=== PATIENT | female | born 1975 | race Caucasian/White ===

== ENCOUNTER 2018-05-18 12:30 | Emergency (ER) | payer OTHER ==
--- OUTSIDE RECORDS SUMMARY | 2018-05-18 12:33 | XMS REPORT | Continuity of Care Document ---
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 17 Medical MALFUNCTION Center Spina bifida Resolved Problem 03/22/2017 [facility] Urinary tract Resolved Problem 03/22/2017 [facility] infection Medical Center HEADACHE Active [facility] PRESENCE OF Active [facility] CEREBROSPINAL Medical FLUID DRAINAGE Center Medications Medication Details Route Status Patient Ordering Order Source Instructions Provider Date heparin sodium, 5,000 unit, 1 No Longer [facility] porcine 2500 mL, Route: Active 017 Medical UNT/ML SUB-Q, Drug Center Injectable form: INJ, Solution Q8H, Dosing Weight 77.409, kg, Start date: 03/18/17 16:00:00 CDT, Duration: 30 day, Stop date: 04/17/17 8:00:00 CDTNotes: porcine heparin Ondansetron 4 4 mg=1 tab, Active [facility] MG Oral Tablet PO, Q8H, PRN 017 Medical [Zofran] Nausea/vomitin Center g, # 42 tab, 0 Refill(s) Acetaminophen 1 tab, PO, Active [facility] 300 MG / Q4H, PRN Pain, 017 Medical Codeine X 10 day, # 60 [facility] Phosphate 30 MG tab, 0 Oral Tablet Refill(s) [Tylenol with Codeine #3] Menthol 0.0044 1 appl, Route: No Longer [facility] MG/MG / Zinc TOP, BID, Drug Active 017 Medical Oxide 0.2 MG/MG form: OINT, [facility] Topical Start date: Ointment 03/16/17 [Calmoseptine 9:00:00 CDT, Ointment] Duration: 30 day, Stop date: 04/14/17 17:00:00 CDTNotes: (Same as: Calmoseptine) Labetalol 20 mg, 4 mL, No Longer [facility] Route: IVP, Active 017 Medical Drug form: [facility] INJ, Q15Min, Dosing Weight 77.273, kg, PRN Hypertension, Start date: 03/15/17 21:01:00 CDT, Duration: 3 doses or times, Stop date: 03/17/17 1:00:00 CDT Hydralazine 20 mg, 1 mL, No Longer [facility] Route: IVP, Active 017 Medical Drug form: [facility] INJ, Q4H, Dosing Weight 77.273, kg, PRN Hypertension, Start date: 03/15/17 21:01:00 CDT, Duration: 30 day, Stop date: 04/14/17 21:00:00 CDTNotes: (Same as: Apresoline) Push over 5 minutes Saline Flush 10 ml, Route: No Longer [facility] 0.9% IVP, Drug Active 017 Medical Form: INJ, [facility] Dosing Weight 77.273, kg, Q12H, Start date: 03/15/17 21:00:00 CDT, Duration: 30 day, Stop date: 04/14/17 9:00:00 CDTNotes: (Same as: BD Posiflush) sennosides, SNF 8.6 mg, 1 tab, No Longer [facility] Route: PO, Active 017 Medical Drug Form: [facility] TAB, Dosing Weight 77.273, kg, Q12H, Start date: 03/15/17 21:00:00 CDT, Duration: 30 day, Stop date: 04/14/17 9:00:00 CDTNotes: (Same as: Senokot) Docusate 100 mg, 1 cap, No Longer [facility] Route: PO, Active 017 Medical Drug form: [facility] CAP, Q12H, Dosing Weight 77.273, kg, Start date: 03/15/17 21:00:00 CDT, Duration: 30 day, Stop date: 04/14/17 9:00:00 CDTNotes: (Same as: Colace) (Do Not Crush) Regular 7 unit, 0.07 No Longer [facility] Insulin, Human mL, Route: Active 017 Medical 100 UNT/ML SUB-Q, Drug [facility] Injectable form: SOLN, Solution PRN, Dosing Weight 77.273, kg, PRN Abnormal Lab Result, Start date: 03/15/17 19:56:00 CDT, Duration: 30 day, Stop date: 04/14/17 19:55:00 CDTNotes: (Same as: Humulin R) Roll in palms of hands gently; Do not shake vigorously. "single patient use only" (Restricted to patients requiring a dose > 60 units) WASTE: F/P - Black; E - Municipal Trash Bin Stable for 28 days at room temperature Expires in days from Date Dextrose 50% 12.5 gm, 25 No Longer [facility] Syringe mL, Route: Active 017 Medical IVP, Drug Center Form: INJ, Dosing Weight 77.273, kg, PRN, PRN Abnormal Lab Result, Start date: 03/15/17 19:56:00 CDT, Duration: 30 day, Stop date: 04/14/17 19:55:00 CDT Saline Flush 10 ml, Route: No Longer [facility] 0.9% IVP, Drug Active 017 Medical Form: INJ, Center Dosing Weight 77.273, kg, PRN, PRN Line Flush, Start date: 03/15/17 19:56:00 CDT, Duration: 30 day, Stop date: 04/14/17 19:55:00 CDTNotes: (Same as: BD Posiflush) Bisacodyl 10 mg, 1 supp, No Longer [facility] Route: OK, Active 017 Medical Drug form: Center SUPP, Daily, Dosing Weight 77.273, kg, PRN Constipation, Start date: 03/15/17 19:56:00 CDT, Duration: 30 day, Stop date: 04/14/17 19:55:00 CDTNotes: (Same As: Dulcolax, Bisco-Lax) Acetaminophen 650 mg, 2 tab, No Longer [facility] Route: PO, Active 017 Medical Drug form: Center TAB, Q4H, Dosing Weight 77.273, kg, PRN Pain 1-3/Temp > 99.5 F, Start date: 03/15/17 19:56:00 CDT, Duration: 30 day, Stop date: 04/14/17 19:55:00 CDTNotes: Do not exceed 4 gm/day. (Same as: Tylenol) Morphine 1 mg, 0.25 mL, No Longer [facility] Route: IVP, Active 017 Medical Drug form: Center INJ, Q1H, Dosing Weight 77.273, kg, PRN Pain Score 7-10, Start date: 03/15/17 19:56:00 CDT, Stop date: 04/14/17 19:55:00 CDTNotes: (Same as:MORPhine Sulfate) Acetaminophen 2 tab, Route: No Longer [facility] 325 MG / PO, Drug Form: Active 017 Medical Hydrocodone TAB, Dosing Center Bitartrate 5 MG Weight 77.273, Oral Tablet kg, Q4H, PRN Pain Score 4-6, Start date: 03/15/17 19:56:00 CDT, Duration: 30 day, Stop date: 04/14/17 19:55:00 CDTNotes: (Same as: Torreon 325/5) Do not exceed 4gm/day of acetaminophen. sodium chloride 1,000 mL, No Longer [facility] 0.9% 1000 ml Rate: 50 Active 017 Medical INJ 1,000 mL ml/hr, Infuse Center over: 20 hr, Route: IV, Dosing Weight 77.273 kg, Total Volume: 1,000, Start date: 03/15/17 19:56:00 CDT, Duration: 30 day, Stop date: 04/14/17 19:55:00 CDT Fentanyl 50 microgram, Inactive [facility] 1 mL, Route: 017 Medical IVP, Drug Center form: INJ, ONCE, Dosing Weight 77.273, kg, Priority: STAT, Start date: 03/15/17 18:48:00 CDT, Stop date: 03/15/17 18:48:00 CDTNotes: (Same as: Sublimaze) Preservative free. Tylenol 650 mg, 2 tab, Inactive [facility] Route: PO, 017 Medical Drug form: Center TAB, ONCE, Dosing Weight 77.273, kg, Priority: STAT, Start date: 03/15/17 18:23:00 CDT, Stop date: 03/15/17 18:23:00 CDTNotes: Do not exceed 4 gm/day. (Same as: Tylenol) NS (Bolus) IV 1,000 mL, Inactive [facility] 1,000 ml/hr, 017 Medical Infuse Over: 1 Center hr, Route: IV, 1,000, Drug form: INJ, ONCE, Priority: STAT, Dosing Weight 77.273 kg, Start date: 03/15/17 18:23:00 CDT, Duration: 1 doses or times, Stop date: 03/15/17 18:23:00 CDT Reglan 10 mg, 2 mL, Inactive [facility] Route: IVP, 017 Medical Drug form: Center INJ, ONCE, Dosing Weight 77.273, kg, Priority: STAT, Start date: 03/15/17 18:23:00 CDT, Stop date: 03/15/17 18:23:00 CDTNotes: (Same as: Reglan) Allergies, Adverse Reactions, Alerts Substance Category Reaction Severity Reaction Status Date Comments Source type Reported clindamycin Assertion Drug Active [facility] Immunizations Immunization Date Given Site Status Last Updated Comments Source Results Order Name Results Value Reference Date Interpretation Comments Source Range BODY FLUIDS WBC CSF 3 /mm3 0 - 53 03/16 [facility] [address] [place] [address] BODY FLUIDS RBC CSF 4450 /mm3 0 - 03 03/16 [facility] BODY FLUIDS Supernat CSF Colorless Colorless 03/16 [facility] (03/15/17 8:17 PM) [facility] BODY FLUIDS Clarity CSF Slight Clear 03/16 [facility] *ABN* [facility] (03/15/17 8:17 PM) BODY FLUIDS Color CSF Colorless Colorless 03/16 [facility] (03/15/17 8:17 PM) [facility] BODY FLUIDS Comment CSF Differentia 03/16 [facility] l [facility] performed Center on WBC count of less than 5. BODY FLUIDS Tube Num CSF 1 03/16 [facility] ELECTROLYTE AGAP 10.1 meq/L 10.0 - 03/15 [facility] S 20.0 [facility] ELECTROLYTE eGFR 129 03/15 Result Comment: The eGFR is calculated using the CKD-EPI formula. In most young, healthy individuals the eGFR will be > 90 mL/min/1.73m2. The eGFR declines with age. An eGFR of 60-89 may be normal in [facility] mL/min/1.73 /2016 some populations, particularly the elderly, for whom the CKD-EPI formula has not been extensively validated. Use of the eGFR is not recommended in the following populations: [place] [address] Center Individuals with unstable creatinine concentrations, including patients and those with serious co-morbid conditions. Patients with extremes in muscle mass or diet. The data above are obtained from the National Kidney Disease Education Program (NKDEP) which additionally recommends that when the eGFR is used in patients with extremes of body mass index for purposes of drug dosing, the eGFR should be multiplied by the estimated BMI. ELECTROLYTE CO2 24 meq/L 24 - 32 03/15 [facility] [address] [place] [address] ELECTROLYTE Calcium Lvl 8.2 mg/dL 8.5 - 10.5 03/15 [facility]2016 [facility] ELECTROLYTE Creatinine 0.42 mg/dL 0.50 - 03/15 [facility] Lvl 1.40 [facility] ELECTROLYTE Sodium Lvl 140 meq/L 135 - 145 03/[address] ELECTROLYTE Potassium 4.1 meq/L 3.5 - 5.1 03/15 [facility] ELECTROLYTE BUN 11 mg/dL 7 - 22 03/[address] ELECTROLYTE Chloride Lvl 110 meq/L 95 - 109 03/[address] ELECTROLYTE Glucose Lvl 90 mg/dL 70 - 99 03/[address] HEMATOLOGY Microcyte 2+ None Seen 03/15 [facility] Center (03/15/17 6:55 PM) HEMATOLOGY Eosinophils 0.1 K/CMM 0.0 - 0.5 03/15 [facility] HEMATOLOGY Eosinophils 1.9 % 0.0 - 4.0 03/[address] [facility]2016 [facility] HEMATOLOGY Monocytes 6.3 % 2.0 - 12.0 03/[address] HEMATOLOGY Lymphocytes 28.3 % 20.0 - 03/15 [facility] 40.0 [facility] HEMATOLOGY Segs-Bands # 3.7 K/CMM 1.5 - 8.1 03/[address] HEMATOLOGY Basophils 0.4 % 0.0 - 1.0 03/[address] HEMATOLOGY Lymphocytes 1.6 K/CMM 1.0 - 5.5 03/15 [facility]2016 [facility] HEMATOLOGY Monocytes # 0.4 K/CMM 0.0 - 0.8 03/15 [facility] HEMATOLOGY Plt Morph Normal 03/15 Medical (03/15/17 6:55 PM) [facility] HEMATOLOGY Segs 63.1 % 45.0 - 03/15 75.0 /2016 [facility] HEMATOLOGY MPV 7.6 fL 7.4 - 10.4 03/15 [facility] HEMATOLOGY MCH 20.2 pg 27.0 - 03/15 [place] 31.0 [facility] HEMATOLOGY MCHC 29.3 g/dL 32.0 - 03/15 Result 36.0 Comment: Medical rechecked [facility] HEMATOLOGY RDW 18.6 % 11.5 - 03/15 14. [facility] HEMATOLOGY Platelet 199 K/CMM 133 - 450 03/15 [facility] HEMATOLOGY MCV 69.0 fL 80.0 - 03/15 98.0 [facility] HEMATOLOGY RBC 4.28 M/CMM 4.20 - 03/15 [place] 5.40 [facility] HEMATOLOGY Hgb 8.7 g/dL 12.0 - 03/15 16.0 [facility] HEMATOLOGY Hct 29.5 % 36.0 - 03/15 48.0 /2016 [facility] HEMATOLOGY WBC 5.8 K/CMM 3.7 - 10.4 03/15 [facility] HEMATOLOGY PT 12.9 s 12.0 - 03/15 14.7 [facility] HEMATOLOGY PTT 28.1 s 22.9 - 03/15 [place] 35.8 [facility] HEMATOLOGY INR 0.95 0.85 - 03/15 [place] 1. [facility] BLOOD BANK ABO/Rh O POS 03/15 RESULTS [facility] BLOOD BANK Antibody Negative 03/15 [facility] RESULTS [facility] (03/15/17 6:48 PM) [facility] Brain wo Brain wo EXAM: CT BRAIN WITHOUT CONTRAST 03/15 - [facility] contrast CT contrast CT /2016 - [facility] This report was dictated by a Hobber/Fellow. I have personally reviewed the images as Center well as the Resident's interpretation and agree with the findings. DATE: 03/15/2017 Read by: Geo Christopher MD Resident: Geo Christopher MD Dictated Date/time: 03/15/17 21:44 Electronically Signed by: Ulises Darling MD 03/15/17 22:50 FINAL REPORT INDICATION: STEALTH PROTOCOL COMPARISON: Brain CT performed earlier of the same date at [facility] at 1253 hours TECHNIQUE: Multiple contiguous axial CT images of the brain with sagittal and coronal reformats, utilizing the STEALTH protocol IV contrast: None DISCUSSION: A right transparietal ventricular catheter is again shown in place, unchanged in position as before. The ventricles remain decompressed, and are unchanged in size. No focal brain parenchymal abnormality is evident. Again, the cerebellar tonsils project below the plane of the foramen magnum, at the level of C1-C2. IMPRESSION: STEALTH protocol completed. 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 I have personally reviewed the images as Center well as the Resident's interpretation and agree with the findings. DATE: 03/15/2017 9:01 PM CDT Read by: Jose R Jimenez MD Resident: Jose R Jimenez MD Dictated Date/time: 03/15/17 21:12 Electronically Signed by: Julio Brown MD 03/15/17 21:16 FINAL REPORT INDICATION: - eval pre-op COMPARISON: 03/15/2017 outside radiograph. TECHNIQUE: AP chest FINDINGS: Lines, tubes and hardware: Right upper quadrant surgical clips. Partially seen right ventricular shunt catheter. Lungs and pleura: The lungs are hypoinflated with bronchovascular crowding in the lung bases. There is no significant pleural effusion or pneumothorax. Heart and mediastinum: The heart size is normal for technique. The mediastinal contours are normal. Bones: No acute bony abnormality is identified. Curvature of the spine is unchanged compared to prior imaging. IMPRESSION: No acute cardiopulmonary abnormality. Stable compared to prior radiograph. [place] SECTION: ER Vital Signs Vital Sign Value Date Comments Source Systolic (mm Hg) 123 03/19/2017 [facility] Diastolic (mm Hg) 85 03/19/2017 [facility] Respitory Rate 18 03/19/2017 [facility] Heart Rate 84 03/19/2017 [facility] Temperature Oral (F) 97.7 F 03/19/2017 [facility] Temperature Oral (F) 97.8 F 03/19/2017 [facility] Heart Rate 70 03/19/2017 [facility] Systolic (mm Hg) 124 03/19/2017 [facility] Diastolic (mm Hg) 86 03/19/2017 [facility] Respitory Rate 18 03/19/2017 [facility] Heart Rate 69 03/19/2017 [facility] Temperature Oral (F) 97.1 F 03/19/2017 [facility] Systolic (mm Hg) 116 03/19/2017 [facility] Diastolic (mm Hg) 73 03/19/2017 [facility] Respitory Rate 18 03/19/2017 [facility] Weight 77.409 03/16/2017 [facility] BMI Calculated 49.88 03/16/2017 [facility] Weight 77.273 03/16/2017 [facility] Height 124.46 cm 03/16/2017 [facility] Weight 77.273 03/15/2017 [facility] BMI Calculated 49.88 03/15/2017 [facility] Height 124.46 cm 03/15/2017 [facility] Encounters Location Location Encounter Encounter Reason Attending ADM DC Status Source Details Type Number For Provider Date Date Visit [facility]ation [id number] [place] 03/15 03/19 [facility] Naveed Lares /2016 [facility] Procedures Procedure Code Date Perfomer Comments Source Cholecystectomy [id number] [facility] Creation of BAND HEAD SAW OPERATOR shunt [id number] [facility]
--- OUTSIDE RECORDS SUMMARY | 2018-05-18 12:33 | XMS REPORT | Summary of Care ---
:1975 Author Organization [facility] Address [address] [place] [id number] Encounter HQ Encntr_alias(FIN) [id number] Date(s): 03/15/17 - 03/19/[address] Professional Services provided by [facility] [place] [address]- Discharge Disposition: Home or Self Care Attending Physician: Stanton Lares MD Admitting Physician: Stanton Lares MD Referring Physician: Juancarlos Loyd MD Vital Signs Most recent to oldest 1 2 3 [Reference Range]: Height 124.46 cm 124.46 cm (03/15/17 10:30 PM) (03/15/17 5:15 PM) Temperature Oral [96.4-99.1 97.7 DegF 97.8 DegF 97.1 DegF DegF] (03/19/17 12:09 PM) (03/19/17 8:00 AM) (03/19/17 5:08 AM) Blood Pressure [90-140/60-90 123/85 mmHg 124/86 mmHg 116/73 mmHg mmHg] (03/19/17 12:09 PM) (03/19/17 8:00 AM) (03/19/17 5:08 AM) Respiratory Rate [14-20 18 BRMIN 18 BRMIN 18 BRMIN BRMIN] (03/19/17 12:09 PM) (03/19/17 8:00 AM) (03/19/17 5:08 AM) Peripheral Pulse Rate [60-100 84 bpm 70 bpm 69 bpm bpm] (03/19/17 12:09 PM) (03/19/17 8:00 AM) (03/19/17 5:08 AM) Weight 77.409 kg 77.273 kg 77.273 kg (03/16/17 12:30 PM) (03/15/17 10:30 PM) (03/15/17 5:15 PM) Body Mass Index 49.88 m2 49.88 m2 (03/15/17 10:30 PM) (03/15/17 5:15 PM) Problem List Condition Effective Dates Status Health Status Informant Spina bifida(Confirmed) Resolved Urinary tract infection(Confirmed) Resolved Allergies, Adverse Reactions, Alerts Substance Reaction Severity Status clindamycin Active Medications acetaminophen 650 mg, 2 tab, Route: PO, Drug form: TAB, Q4H, Dosing Weight 77.273, kg, PRN Pain 1-3/Temp > 99.5 F, Start date: 03/15/17 19:56:00 CDT, Duration: 30 day, Stop date: 04/14/17 19:55:00 CDT Notes: Do not exceed 4 gm/day. (Same as: Tylenol) Start Date: 03/15/17 Stop Date: 03/19/17 Status: Discontinuedacetaminophen-hydrocodone 325 mg-5 mg oral tablet 2 tab, Route: PO, Drug Form: TAB, Dosing Weight 77.273, kg, Q4H, PRN Pain Score 4-6, Start date: 03/15/17 19:56:00 CDT, Duration: 30 day, Stop date: 04/14/17 19 :55:00 CDT Notes: (Same as: Icard 325/5) Do not exceed 4gm/day of acetaminophen. Start Date: 03/15/17 Stop Date: 03/19/17 Status: Discontinuedacetaminophen-hydrocodone 325 mg-5 mg oral tablet 1 tab, Route: PO, Drug Form: TAB, Dosing Weight 77.273, kg, Q4H, PRN Pain Score 1-3, Start date: 03/15/17 19:56:00 CDT, Duration: 30 day, Stop date: 04/14/17 19 :55:00 CDT Notes: (Same as: Icard 325/5) Do not exceed 4gm/day of acetaminophen. Start Date: 03/15/17 Stop Date: 03/19/17 Status: Discontinuedbisacodyl 10 mg, 1 supp, Route: AR, Drug form: SUPP, Daily, Dosing Weight 77.273, kg, PRN Constipation, Start date: 03/15/17 19:56:00 CDT, Duration: 30 day, Stop date: 19:55:00 CDT Notes: (Same As: Dulcolax, Bisco-Lax) Start Date: 03/15/17 Stop Date: 03/19/17 Status: DiscontinuedCalmoseptine topical ointment 1 appl, Route: TOP, BID, Drug form: OINT, Start date: 03/16/17 9:00:00 CDT, Duration: 30 day, Stop date: 04/14/17 17:00:00 CDT Notes: (Same as: Calmoseptine) Start Date: 03/16/17 Stop Date: 03/19/17 Status: DiscontinuedDextrose 50% Syringe 12.5 gm, 25 mL, Route: IVP, Drug Form: INJ, Dosing Weight 77.273, kg, PRN, PRN Abnormal Lab Result, Start date: 03/15/17 19:56:00 CDT, Duration: 30 day, Stop date: 04/14/17 19:55:00 CDT Start Date: 03/15/17 Stop Date: 03/19/17 Status: DiscontinuedDextrose 50% Syringe 6.25 gm, 12.5 mL, Route: IVP, Drug Form: INJ, Dosing Weight 77.273, kg, PRN, PRN Abnormal Lab Result, Start date: 03/15/17 19:56:00 CDT, Duration: 30 day, Stop date: 04/14/17 19:55:00 CDT Start Date: 03/15/17 Stop Date: 03/19/17 Status: DiscontinuedDextrose 50% Syringe 25 gm, 50 mL, Route: IVP, Drug Form: INJ, Dosing Weight 77.273, kg, PRN, PRN Abnormal Lab Result, Start date: 03/15/17 19:56:00 CDT, Duration: 30 day, Stop date: 04/14/17 19:55:00 CDT Start Date: 03/15/17 Stop Date: 03/19/17 Status: Discontinueddocusate 100 mg, 1 cap, Route: PO, Drug form: CAP, Q12H, Dosing Weight 77.273, kg, Start date: 03/15/17 21:00:00 CDT, Duration: 30 day, Stop date: 04/14/17 9:00:00 CDT Notes: (Same as: Colace) (Do Not Crush) Start Date: 03/15/17 Stop Date: 03/19/17 Status: DiscontinuedfentaNYL 50 microgram, 1 mL, Route: IVP, Drug form: INJ, ONCE, Dosing Weight 77.273, kg, Priority: STAT, Start date: 03/15/17 18:48:00 CDT, Stop date: 03/15/17 18:48:00 CDT Notes: (Same as: Sublimaze) Preservative free. Start Date: 03/15/17 Stop Date: 03/15/17 Status: Completedheparin 5000 units/mL injectable solution 5,000 unit, 1 mL, Route: SUB-Q, Drug form: INJ, Q8H, Dosing Weight 77.409, kg, Start date: 03/18/17 16:00:00 CDT, Duration: 30 day, Stop date: 04/17/17 8:00: 00 CDT Notes: porcine heparin Start Date: 03/18/17 Stop Date: 03/19/17 Status: DiscontinuedhydrALAZINE 20 mg, 1 mL, Route: IVP, Drug form: INJ, Q4H, Dosing Weight 77.273, kg, PRN Hypertension, Start date: 03/15/17 21:01:00 CDT, Duration: 30 day, Stop date: 21:00:00 CDT Notes: (Same as: Apresoline)Push over 5 minutes Start Date: 03/15/17 Stop Date: 03/19/17 Status: Discontinuedinsulin regular 100 units/mL human recombinant 7 unit, 0.07 mL, Route: SUB-Q, Drug form: SOLN, PRN, Dosing Weight 77.273, kg, PRN Abnormal Lab Result, Start date: 03/15/17 19:56:00 CDT, Duration: 30 day, Stop date: 04/14/17 19:55:00 CDT Notes: (Same as: Humulin R) Roll in palms of hands gently; Do not shake vigorously. "single patientuse only"(Restricted to patients requiring a dose > 60 units)WASTE: F/P - Black; E - Municipal Trash Bin Stable for 28 days at room temperatureExpires in days from Date Start Date: 03/15/17 Stop Date: 03/19/17 Status: Discontinuedinsulin regular 100 units/mL human recombinant 3 unit, 0.03 mL, Route: SUB-Q, Drug form: SOLN, PRN, Dosing Weight 77.273, kg, PRN Abnormal Lab Result, Start date: 03/15/17 19:56:00 CDT, Duration: 30 day, Stop date: 04/14/17 19:55:00 CDT Notes: (Same as: Humulin R) Roll in palms of hands gently; Do not shake vigorously. "single patientuse only"(Restricted to patients requiring a dose > 60 units)WASTE: F/P - Black; E - Municipal Trash Bin Stable for 28 days at room temperatureExpires in days from Date Start Date: 03/15/17 Stop Date: 03/19/17 Status: Discontinuedinsulin regular 100 units/mL human recombinant 5 unit, 0.05 mL, Route: SUB-Q, Drug form: SOLN, PRN, Dosing Weight 77.273, kg, PRN Abnormal Lab Result, Start date: 03/15/17 19:56:00 CDT, Duration: 30 day, Stop date: 04/14/17 19:55:00 CDT Notes: (Same as: Humulin R) Roll in palms of hands gently; Do not shake vigorously. "single patientuse only"(Restricted to patients requiring a dose > 60 units)WASTE: F/P - Black; E - Municipal Trash Bin Stable for 28 days at room temperatureExpires in days from Date Start Date: 03/15/17 Stop Date: 03/19/17 Status: Discontinuedlabetalol 20 mg, 4 mL, Route: IVP, Drug form: INJ, Q15Min, Dosing Weight 77.273, kg, PRN Hypertension, Start date: 03/15/17 21:01:00 CDT, Duration: 3 doses or times, Stop date: 03/17/17 1:00:00 CDT Start Date: 03/15/17 Stop Date: 03/17/17 Status: Completedmorphine Sulfate 1 mg, 0.25 mL, Route: IVP, Drug form: INJ, Q1H, Dosing Weight 77.273, kg, PRN Pain Score 7-10, Startdate: 03/15/17 19:56:00 CDT, Stop date: 04/14/17 19:55:00 CDT Notes: (Same as:MORPhine Sulfate) Start Date: 03/15/17 Stop Date: 03/19/17 Status: DiscontinuedNS (Bolus) IV 1,000 mL, 1,000 ml/hr, Infuse Over: 1 hr, Route: IV, 1,000, Drug form: INJ, ONCE , Priority: STAT, Dosing Weight 77.273 kg, Start date: 03/15/17 18:23:00 CDT, Duration: 1 doses or times, Stop date: 03/15/17 18:23:00 CDT Start Date: 03/15/17 Stop Date: 03/15/17 Status: CompletedReglan 10 mg, 2 mL, Route: IVP, Drug form: INJ, ONCE, Dosing Weight 77.273, kg, Priority: STAT, Start date:03/15/17 18:23:00 CDT, Stop date: 03/15/17 18:23:00 CDT Notes: (Same as: Reglan) Start Date: 03/15/17 Stop Date: 03/15/17 Status: CompletedSaline Flush 0.9% 10 ml, Route: IVP, Drug Form: INJ, Dosing Weight 77.273, kg, PRN, PRN Line Flush , Start date: 03/15/17 19:56:00 CDT, Duration: 30 day, Stop date: 04/14/17 19:55 :00 CDT Notes: (Same as: BD Posiflush) Start Date: 03/15/17 Stop Date: 03/19/17 Status: DiscontinuedSaline Flush 0.9% 10 ml, Route: IVP, Drug Form: INJ, Dosing Weight 77.273, kg, Q12H, Start date: 03/15/17 21:00:00 CDT, Duration: 30 day, Stop date: 04/14/17 9:00:00 CDT Notes: (Same as: BD Posiflush) Start Date: 03/15/17 Stop Date: 03/19/17 Status: Discontinuedsenna 8.6 mg, 1 tab, Route: PO, Drug Form: TAB, Dosing Weight 77.273, kg, Q12H, Start date: 03/15/17 21:00:00 CDT, Duration: 30 day, Stop date: 04/14/17 9:00:00 CDT Notes: (Same as: Senokot) Start Date: 03/15/17 Stop Date: 03/19/17 Status: Discontinuedsodium chloride 0.9% 1000 ml INJ 1,000 mL 1,000 mL, Rate: 50 ml/hr, Infuse over: 20 hr, Route: IV, Dosing Weight 77.273 kg , Total Volume: 1,000, Start date: 03/15/17 19:56:00 CDT, Duration: 30 day, Stop date: 04/14/17 19:55:00 CDT Start Date: 03/15/17 Stop Date: 03/19/17 Status: DiscontinuedTylenol 650 mg, 2 tab, Route: PO, Drug form: TAB, ONCE, Dosing Weight 77.273, kg, Priority: STAT, Start date: 03/15/17 18:23:00 CDT, Stop date: 03/15/17 18:23:00 CDT Notes: Do not exceed 4 gm/day. (Same as: Tylenol) Start Date: 03/15/17 Stop Date: 03/15/17 Status: CompletedTylenol with Codeine #3 oral tablet 1 tab, PO, Q4H, PRN Pain, X 10 day, # 60 tab, 0 Refill(s) Start Date: 03/17/17 Stop Date: 03/27/17 Status: OrderedZofran 4 mg oral tablet 4 mg=1 tab, PO, Q8H, PRN Nausea/vomiting, # 42 tab, 0 Refill(s) Start Date: 03/17/17 Stop Date: 03/31/17 Status: Ordered Results BLOOD BANK RESULTS Most recent to oldest [Reference Range]: 1 ABO/Rh O POS *Unknown* (03/15/17 6:48 PM) Antibody Scrn Negative (03/15/17 6:48 PM) ELECTROLYTES Most recent to oldest [Reference Range]: 1 Sodium Lvl [135-145 mEq/L] 140 mEq/L (03/15/17 6:55 PM) Potassium Lvl [3.5-5.1 mEq/L] 4.1 mEq/L (03/15/17 6:55 PM) Chloride Lvl [95-109 mEq/L] 110 mEq/L *HI* (03/15/17 6:55 PM) CO2 [24-32 mEq/L] 24 mEq/L (03/15/17 6:55 PM) AGAP [10.0-20.0 mEq/L] 10.1 mEq/L (03/15/17 6:55 PM) CHEM PANEL Most recent to oldest [Reference Range]: 1 Creatinine Lvl [0.50-1.40 mg/dL] 0.42 mg/dL *LOW* (03/15/17 6:55 PM) eGFR 129 mL/min/1.73m2 1 *NA* (03/15/17 6:55 PM) BUN [7-22 mg/dL] 11 mg/dL (03/15/17 6:55 PM) Glucose Lvl [70-99 mg/dL] 90 mg/dL (03/15/17 6:55 PM) Calcium Lvl [8.5-10.5 mg/dL] 8.2 mg/dL *LOW* (03/15/17 6:55 PM) 1Result Comment: The eGFR is calculated using the CKD-EPI formula. In most young , healthy individualsthe eGFR will be >90 mL/min/1.73m2. The eGFR declines with age. An eGFR of 60-89 may be normal in some populations, particularly the elderly, for whom the CKD-EPI formula has not been extensively validated. Use of the eGFR is not recommended in the following populations: Individuals with unstable creatinine concentrations, including patients and those with serious co-morbid conditions. Patients with extremes in muscle mass or diet. The data above are obtained from the National Kidney Disease Education Program ( NKDEP) which additionally recommends that when the eGFR is used in patients with extremes of body mass index for purposesof drug dosing, the eGFR should be multiplied by the estimated BMI.BODY FLUIDS Most recent to oldest [Reference Range]: 1 Tube Num CSF 1 *NA* (03/15/17 8:17 PM) Color CSF [Colorless] Colorless (03/15/17 8:17 PM) Clarity CSF [Clear] Slight *ABN* (03/15/17 8:17 PM) Supernat CSF [Colorless] Colorless (03/15/17 8:17 PM) RBC CSF [0-0 /mm3] 4450 /mm3 *HI* (03/15/17 8:17 PM) WBC CSF [0-5 /mm3] 3 /mm3 (03/15/17 8:17 PM) Comment CSF Differential not performed on WBC count of less than 5. *NA* (03/15/17 8: PM) HEMATOLOGY Most recent to oldest [Reference Range]: 1 WBC [3.7-10.4 K/CMM] 5.8 K/CMM (03/15/17 6:55 PM) RBC [4.20-5.40 M/CMM] 4.28 M/CMM (03/15/17 6:55 PM) Hgb [12.0-16.0 g/dL] 8.7 g/dL *LOW* (03/15/17 6:55 PM) Hct [36.0-48.0 %] 29.5 % *LOW* (03/15/17 6:55 PM) MCV [80.0-98.0 fL] 69.0 fL *LOW* (03/15/17 6:55 PM) MCH [27.0-31.0 pg] 20.2 pg *LOW* (03/15/17 6:55 PM) MCHC [32.0-36.0 g/dL] 29.3 g/dL 1 *LOW* (03/15/17 6:55 PM) RDW [11.5-14.5 %] 18.6 % *HI* (03/15/17 6:55 PM) Platelet [133-450 K/CMM] 199 K/CMM (03/15/17 6:55 PM) MPV [7.4-10.4 fL] 7.6 fL (03/15/17 6:55 PM) Segs [45.0-75.0 %] 63.1 % (03/15/17 6:55 PM) Lymphocytes [20.0-40.0 %] 28.3 % (03/15/17 6:55 PM) Monocytes [2.0-12.0 %] 6.3 % (03/15/17 6:55 PM) Eosinophils [0.0-4.0 %] 1.9 % (03/15/17 6:55 PM) Basophils [0.0-1.0 %] 0.4 % (03/15/17 6:55 PM) Segs-Bands # [1.5-8.1 K/CMM] 3.7 K/CMM (03/15/17 6:55 PM) Lymphocytes # [1.0-5.5 K/CMM] 1.6 K/CMM (03/15/17 6:55 PM) Monocytes # [0.0-0.8 K/CMM] 0.4 K/CMM (03/15/17 6:55 PM) Eosinophils # [0.0-0.5 K/CMM] 0.1 K/CMM (03/15/17 6:55 PM) Microcyte [None Seen] 2+ *ABN* (03/15/17 6:55 PM) Plt Morph Normal (03/15/17 6:55 PM) PT [12.0-14.7 seconds] 12.9 seconds (03/15/17 6:55 PM) INR [0.85-1.17] 0.95 (03/15/17 6:55 PM) PTT [22.9-35.8 seconds] 28.1 seconds (03/15/17 6:55 PM) 1Result Comment: rechecked Immunizations No data available for this section Procedures Procedure Date Related Diagnosis Body Site Cholecystectomy 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 Alcohol Never Smoking Status Never smoker; Exposure to Tobacco Smoke None; Cigarette Smoking Last 365 Days No; Reg Smoking Cessation Counseling No Assessment and Plan No data available for this section
[2018-05-18] MEDS ORDERED: CEFAZOLIN/SWI 1gm 1 GM/10 ML SYR ONE (14:11)
[2018-05-18] MEDS ORDERED: NA CHLORIDE 0.9% 1,000 ML ONE (14:11)
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
--- NOTE | 2018-05-18 14:29 | EDPHYS ---
Physician Documentation [facility] Name: Luz Elena Pacheco Age: 42 yrs Sex: Female : 1975 Arrival Date: 05/18/2018 Time: 12:24 Bed 30 Private MD: ED Physician Juancarlos Loyd HPI: 05/18 13:38 This 42 yrs old Female presents to ER via EMS with complaints of Laceration elias To Foot. 13:38 The patient has a laceration related to: moving. The laceration(s) is(are) located on elias the right foot. Onset: The symptoms/episode began/occurred just prior to arrival. Associated signs and symptoms: The patient has no apparent associated signs or symptoms. The patient has experienced similar episodes in the past, several times. Historical: - Allergies: 12:33 Clindamycin; dm5 - Home Meds: 12:33 Macrodantin Oral [Active]; dm5 - PMHx: 12:34 spina bifida; dm5 - Immunization history:: Adult Immunizations. - Social history:: Smoking status: Patient/guardian denies using tobacco. - Family history:: not pertinent. ROS: 13:38 Constitutional: Negative for fever, chills, and weight loss, Eyes: Negative for injury, elias pain, redness, and discharge, ENT: Negative for injury, pain, and discharge, Neck: Negative for injury, pain, and swelling, Cardiovascular: Negative for chest pain, palpitations, and edema, Respiratory: Negative for shortness of breath, cough, wheezing, and pleuritic chest pain, Abdomen/GI: Negative for abdominal pain, nausea, vomiting, diarrhea, and constipation, Back: Negative for injury and pain, : Negative for injury, bleeding, discharge, and swelling, Skin: Negative for injury, rash, and discoloration, Neuro: Negative for headache, weakness, numbness, tingling, and seizure, Psych: Negative for depression, anxiety, suicide ideation, homicidal ideation, and hallucinations, Allergy/Immunology: Negative for hives, rash, and allergies, Endocrine: Negative for neck swelling, polydipsia, polyuria, polyphagia, and marked weight changes, Hematologic/Lymphatic: Negative for swollen nodes, abnormal bleeding, and unusual bruising. 13:38 MS/extremity: Positive for pain, of the dorsum of right foot. Exam: 13:38 Constitutional: This is a well developed, well nourished patient who is awake, alert, elias and in no acute distress. Head/Face: Normocephalic, atraumatic. Eyes: Pupils equal round and reactive to light, extra-ocular motions intact. Lids and lashes normal. Conjunctiva and sclera are non-icteric and not injected. Cornea within normal limits. Periorbital areas with no swelling, redness, or edema. ENT: Nares patent. No nasal discharge, no septal abnormalities noted. Tympanic membranes are normal and external auditory canals are clear. Oropharynx with no redness, swelling, or masses, exudates, or evidence of obstruction, uvula midline. Mucous membranes moist. Neck: Trachea midline, no thyromegaly or masses palpated, and no cervical lymphadenopathy. Supple, full range of motion without nuchal rigidity, or vertebral point tenderness. No Meningismus. Chest/axilla: Normal chest wall appearance and motion. Nontender with no deformity. No lesions are appreciated. Cardiovascular: Regular rate and rhythm with a normal S1 and S2. No gallops, murmurs, or rubs. Normal PMI, no JVD. No pulse deficits. Respiratory: Lungs have equal breath sounds bilaterally, clear to auscultation and percussion. No rales, rhonchi or wheezes noted. No increased work of breathing, no retractions or nasal flaring. Abdomen/GI: Soft, non-tender, with normal bowel sounds. No distension or tympany. No guarding or rebound. No evidence of tenderness throughout. Back: No spinal tenderness. No costovertebral tenderness. Full range of motion. Skin: Warm, dry with normal turgor. Normal color with no rashes, no lesions, and no evidence of cellulitis. Neuro: Awake and alert, GCS 15, oriented to person, place, time, and situation. Cranial nerves II-XII grossly intact. Motor strength 5/5 in all extremities. Sensory grossly intact. Cerebellar exam normal. Normal gait. Psych: Awake, alert, with orientation to person, place and time. Behavior, mood, and affect are within normal limits. 13:38 Musculoskeletal/extremity: Extremities: grossly normal except: decreased ROM, pain, swelling, tenderness, ROM: limited active range of motion, limited passive range of motion, Circulation is intact in all extremities. Sensation intact. Compartment Syndrome exam of affected extremity: is normal. Vital Signs: 12:34 BP 151 / 97; Pulse 85; Resp 18; Temp 98.6; Pulse Ox 100% on R/A; Weight 77.11 kg; Pain dm5 0/10; 13:21 BP 135 / 88; Pulse 73; Resp 16; Pulse Ox 99% on R/A; aj 16:26 BP 137 / 87; Pulse 82; Resp 19; Pulse Ox 100% on R/A; aj Laceration: 14:24 Wound Repair of 5cm ( 2.0in ) subcutaneous laceration to dorsum of right foot. snw Irregularly shaped.. Skin/tissue flap noted.. Distal neuro/vascular/tendon intact. Anesthesia: Local anesthetic administered with 8 mls of 1% lidocaine w/ Epi. Wound prep: Moderate cleansing by me, Copious irrigation. Skin closed with 6 4-0 Prolene using interrupted sutures and sterile technique. Dressed with Neosporin. Patient tolerated well. MDM: 12:[address] [facility] 13:41 Data reviewed: vital signs, nurses notes, lab test result(s), radiologic studies, plain elias films. 05/18 13:38 Order name: Comprehensive Metabolic Panel; Complete Time: 15:49 [facility] 05/18 13:38 Order name: Foot Right 3 View XRAY; Complete Time: 15:49 [facility] 05/18 13:38 Order name: Dressing - Wound; Complete Time: 14:55 [facility] 05/18 13:38 Order name: Gloves, Sterile; Complete Time: 14:55 [facility] 05/18 13:38 Order name: Setup Suture Tray; Complete Time: 14:55 [facility] 05/18 14:24 Order name: Wound Care; Complete Time: 16:32 [facility] 05/18 15:50 Order name: Misc. Order: mild pressure dressing to right foot; Complete Time: 16:32 snw Administered Medications: 14:10 Drug: NS 0.9% 1000 ml Route: IV; Rate: 125 ml/hr; Site: right wrist; aj 14:11 Drug: Ancef 1 grams Route: IVPB; Site: right wrist; aj 14:42 Drug: Tetanus-Diphtheria Toxoid Adult 0.5 ml {Youth Manager: [employer]. Exp: aj 07/08/2020. Lot #: [id number]. } Route: IM; Site: left deltoid; 16:37 Follow up: Response: No adverse reaction aj 14:46 Drug: Bactrim (160 mg-800 mg (DS) 1 tablet Route: PO; aj 16:36 Follow up: Response: No adverse reaction aj 14:46 Drug: Doxycycline 200 mg Route: PO; aj 16:36 Follow up: Response: No adverse reaction aj Disposition: 05/19 09:23 Co-signature as Attending Physician, Juancarlos Loyd MD I agree with the assessment and elias plan of care. Disposition: 05/18/18 14:28 Discharged to Home. Impression: Laceration without foreign body, right foot, Edema, unspecified. - Condition is Stable. - Discharge Instructions: Edema, Edema, [id number], Peripheral Edema. - Prescriptions for Doxycycline Hyclate 100 mg Oral Tablet - take 1 tablet by ORAL route every 12 hours; 14 tablet. Bactrim DS 800- 160 mg Oral Tablet - take 1 tablet by ORAL route every 12 hours for 7 days; 14 tablet. Tylenol- Codeine #3 300-30 mg Oral Tablet - take 1 tablet by ORAL route every 6 hours As needed; 20 tablet. Bactroban 2 % Topical Ointment - Apply to affected area 1 application by TOPICAL route every 12 hours; 30 gram. - Medication Reconciliation Form, Thank You Letter, Antibiotic Education, Prescription Opioid Use form. - Follow up: Private Physician; When: 2 - 3 days; Reason: Recheck today's complaints, Continuance of care, Re-evaluation by your physician. Follow up: Donald Oconnell MD; When: 2 - 3 days; Reason: Recheck today's complaints, Continuance of care, Re-evaluation by your physician. - Problem is new. - Symptoms have improved. Signatures: Dispatcher [employer] Mary Garcia RN RN dm5 Myers, Amanda, RN RN aj Anderson, Corey, MD MD cha Therrien, Shelly, QUALITY CONTROL COORDINATOR-C QUALITY CONTROL COORDINATOR-Elverw Alie Broussard [facility] Corrections: (The following items were deleted from the chart) 05/18 15:50 14:24 Wound Repair of 5cm ( 2.0in ) subcutaneous laceration to dorsum of right foot. snw Irregularly shaped.. Skin/tissue flap noted.. Distal neuro/vascular/tendon intact. Anesthesia: Local anesthetic administered with 8 mls of 1% lidocaine w/ Epi. Wound prep: Moderate cleansing by me, Copious irrigation. Skin closed with 5 4-0 Prolene using interrupted sutures and sterile technique. Dressed with Neosporin. Patient tolerated well. [facility] 16:33 14:28 05/18/2018 14:28 Discharged to Home. Impression: Laceration without foreign body, mh5 right foot; Edema, unspecified. Condition is Stable. Forms are Medication Reconciliation Form, Thank You Letter, Antibiotic Education, Prescription Opioid Use. Follow up: Private Physician; When: 2 - 3 days; Reason: Recheck today's complaints, Continuance of care, Re-evaluation by your physician. Follow up: Donald Oconnell; When: 2 - 3 days; Reason: Recheck today's complaints, Continuance of care, Re-evaluation by your physician. Problem is new. Symptoms have improved. elias
[2018-05-18] MEDS ORDERED: TETANUS & DIPHTHERIA TOX,ADULT 0.5 ML VIAL ONE (14:41)
[2018-05-18 14:42] LABS: ALT/SGPT 15 U/L (12-78); AST/SGOT 16 U/L (15-37); Albumin 2.8 g/dL (3.4-5.0); Alkaline Phosphatase 118 U/L (45-117); BUN Blood Urea Nitrogen 13 mg/dL (7-18); Bicarbonate 24 mmol/L (21-32); Bilirubin Total 1.2 mg/dL (0.2-1.0); Glucose Level 83 mg/dL (74-106); Potassium 4.3 mmol/L (3.5-5.1); Sodium Level 140 mmol/L (136-145)
[2018-05-18] MEDS ORDERED: SMZ./TMP. 800/160 MG TABLET ONE (14:51)
[2018-05-18] MEDS ORDERED: DOXYCYCLINE 100 MG CAP PO ONE (14:51)
[2018-05-18] MEDS ORDERED: LIDOCAINE 2% MPF 5 ML VIAL ONE (14:55)
--- NOTE | 2018-05-18 15:19 | RAD REPORT ---
EXAM DESCRIPTION: RAD - Foot Right 3 View - 05/18/2018 2:34 pm CLINICAL HISTORY: Soft tissue laceration, foot trauma COMPARISON: None. FINDINGS: Patient has very pronounced soft tissue swelling or edema around the foot and ankle all pr esumed to be chronic baseline pattern for the patient. No air or foreign body seen in the soft tissue s. Bones of the foot and ankle are diffusely osteopenic. This is most pronounced around the MTP joints. The combination of diffuse osteopenia and pronounced soft tissue swelling results in significant limi tation in bone assessment. There is no gross fracture deformity seen. No distraction or angulation de formities identifiable. No destructive process confirmed. IMPRESSION: Pronounced soft tissue swelling surrounding the foot and ankle with no air or foreign valerie dy identifiable. Substantially limited bone assessment due to density of the swollen soft tissues and the underlying o steopenia. No acute bone finding confirmed.
== END 2018-05-18 16:33 | disposition home or self-care (01) ==
LOC: ER 12:30
PROC: 0JQQ0ZZ Repair Right Foot Subcutaneous Tissue and Fascia, Open Approach (ICD-10-PCS; principal; 2018-05-18)
DX: S91.311A Laceration without foreign body, right foot, initial encounter (principal); Q05.9 Spina bifida, unspecified; W22.8XXA Striking against or struck by other objects, initial encounter; Y92.009 Unspecified place in unspecified non-institutional (private) residence as the place of occurrence of the external cause
CPT/HCPCS: 12002; 36415; 73630; 80053; 90714; 96374; 99284; J0690; J7030

== ENCOUNTER 2018-07-04 14:26 | Inpatient (IN) | payer OTHER ==
--- OUTSIDE RECORDS SUMMARY | 2018-07-04 14:29 | XMS REPORT | Continuity of Care Document ---
:1975 Author Organization Interface Problems Problem Status Onset Classification Date Comments Source Date Reported ACUTE HEADACHE, Active 03/15/20 [facility] PRESENCE OF [address] [place] [address] VENTRICULAR Center HANSEN WITH POSSIBLE Active 03/15/20 [facility] BALLISTIC TECHNICIAN SHUNT 17 Medical MALFUNCTION Center Spina bifida Resolved Problem 03/22/2017 [facility] Urinary tract Resolved Problem 03/22/2017 [facility] infection Medical Center HEADACHE Active [facility] PRESENCE OF Active [facility] CEREBROSPINAL Medical FLUID DRAINAGE Center Medications Medication Details Route Status Patient Ordering Order Source Instructions Provider Date heparin sodium, 5,000 unit, 1 No Longer [facility] porcine 2500 mL, Route: Active 017 Medical UNT/ML SUB-Q, Drug Center Injectable form: INJ, Solution Q8H, Dosing Weight 77.409, kg, Start date: 03/18/17 16:00:00 CDT, Duration: 30 day, Stop date: 04/17/17 8:00:00 CDTNotes: porcine heparin Ondansetron 4 4 mg=1 tab, Active [facility] MG Oral Tablet PO, Q8H, PRN 017 Medical [Zofran] Nausea/vomitin Center g, # 42 tab, 0 Refill(s) Acetaminophen 1 tab, PO, Active [facility] 300 MG / Q4H, PRN Pain, 017 Medical Codeine X 10 day, # 60 [place] Phosphate 30 MG tab, 0 Oral Tablet Refill(s) [Tylenol with Codeine #3] Menthol 0.0044 1 appl, Route: No Longer [facility] MG/MG / Zinc TOP, BID, Drug Active 017 [facility] Oxide 0.2 MG/MG form: OINT, [place] Topical Start date: Ointment 03/16/17 [Calmoseptine 9:00:00 CDT, Ointment] Duration: 30 day, Stop date: 04/14/17 17:00:00 CDTNotes: (Same as: Calmoseptine) Labetalol 20 mg, 4 mL, No Longer [facility] Route: IVP, Active 017 [facility] Drug form: [place] INJ, Q15Min, Dosing Weight 77.273, kg, PRN Hypertension, Start date: 03/15/17 21:01:00 CDT, Duration: 3 doses or times, Stop date: 03/17/17 1:00:00 CDT Hydralazine 20 mg, 1 mL, No Longer [facility] Route: IVP, Active 017 [facility] Drug form: [place] INJ, Q4H, Dosing Weight 77.273, kg, PRN Hypertension, Start date: 03/15/17 21:01:00 CDT, Duration: 30 day, Stop date: 04/14/17 21:00:00 CDTNotes: (Same as: Apresoline) Push over 5 minutes Saline Flush 10 ml, Route: No Longer [facility] 0.9% IVP, Drug Active 017 [facility] Form: INJ, [place] Dosing Weight 77.273, kg, Q12H, Start date: 03/15/17 21:00:00 CDT, Duration: 30 day, Stop date: 04/14/17 9:00:00 CDTNotes: (Same as: BD Posiflush) sennosides, HALF-WAY 8.6 mg, 1 tab, No Longer [facility] Route: PO, Active 017 [facility] Drug Form: [place] TAB, Dosing Weight 77.273, kg, Q12H, Start date: 03/15/17 21:00:00 CDT, Duration: 30 day, Stop date: 04/14/17 9:00:00 CDTNotes: (Same as: Senokot) Docusate 100 mg, 1 cap, No Longer [facility] Route: PO, Active 017 [facility] Drug form: [place] CAP, Q12H, Dosing Weight 77.273, kg, Start date: 03/15/17 21:00:00 CDT, Duration: 30 day, Stop date: 04/14/17 9:00:00 CDTNotes: (Same as: Colace) (Do Not Crush) Regular 7 unit, 0.07 No Longer [facility] Insulin, Human mL, Route: Active 017 Medical 100 UNT/ML SUB-Q, Drug [place] Injectable form: SOLN, Solution PRN, Dosing Weight [...] Dextrose 50% 12.5 gm, 25 No Longer [facility] Syringe mL, Route: Active 017 Medical IVP, Drug Center Form: INJ, Dosing Weight 77.273, kg, PRN, PRN Abnormal Lab Result, Start date: 03/15/17 19:56:00 CDT, Duration: 30 day, Stop date: 04/14/17 19:55:00 CDT Saline Flush 10 ml, Route: No Longer [facility] 0.9% IVP, Drug Active 017 Medical Form: INJ, Center Dosing Weight 77.273, kg, PRN, PRN Line Flush, Start date: 03/15/17 19:56:00 CDT, Duration: 30 day, Stop date: 04/14/17 19:55:00 CDTNotes: (Same as: BD Posiflush) Bisacodyl 10 mg, 1 supp, No Longer [facility] Route: SD, Active 017 Medical Drug form: Center SUPP, Daily, Dosing Weight 77.273, kg, PRN Constipation, Start date: 03/15/17 19:56:00 CDT, Duration: 30 day, Stop date: 04/14/17 19:55:00 CDTNotes: (Same As: Dulcolax, Bisco-Lax) Acetaminophen 650 mg, 2 tab, No Longer [facility] Route: PO, Active 017 Medical Drug form: Center TAB, Q4H, Dosing Weight 77.273, kg, PRN Pain 1-3/Temp > 99.5 F, Start date: 03/15/17 19:56:00 CDT, Duration: 30 day, Stop date: 04/14/17 19:55:00 CDTNotes: Do not exceed 4 gm/day. (Same as: Tylenol) Morphine 1 mg, 0.25 mL, No Longer [facility] Route: IVP, Active 017 Medical Drug form: Center INJ, Q1H, Dosing Weight 77.273, kg, PRN Pain Score 7-10, Start date: 03/15/17 19:56:00 CDT, Stop date: 04/14/17 19:55:00 CDTNotes: (Same as:MORPhine Sulfate) Acetaminophen 2 tab, Route: No Longer [facility] 325 MG / PO, Drug Form: Active 017 Medical Hydrocodone TAB, Dosing Center Bitartrate 5 MG Weight 77.273, Oral Tablet kg, Q4H, PRN Pain Score 4-6, Start date: 03/15/17 19:56:00 CDT, Duration: 30 day, Stop date: 04/14/17 19:55:00 CDTNotes: (Same as: Decker 325/5) Do not exceed 4gm/day of acetaminophen. sodium chloride 1,000 mL, No Longer [facility] 0.9% 1000 ml Rate: 50 Active 017 Medical INJ 1,000 mL ml/hr, Infuse Center over: 20 hr, Route: IV, Dosing Weight 77.273 kg, Total Volume: 1,000, Start date: 03/15/17 19:56:00 CDT, Duration: 30 day, Stop date: 04/14/17 19:55:00 CDT Fentanyl 50 microgram, Inactive [facility] 1 mL, Route: 017 Medical IVP, Drug Center form: INJ, ONCE, Dosing Weight 77.273, kg, Priority: STAT, Start date: 03/15/17 18:48:00 CDT, Stop date: 03/15/17 18:48:00 CDTNotes: (Same as: Sublimaze) Preservative free. Tylenol 650 mg, 2 tab, Inactive [facility] Route: PO, 017 Medical Drug form: Center TAB, ONCE, Dosing Weight 77.273, kg, Priority: STAT, Start date: 03/15/17 18:23:00 CDT, Stop date: 03/15/17 18:23:00 CDTNotes: Do not exceed 4 gm/day. (Same as: Tylenol) NS (Bolus) IV 1,000 mL, Inactive [facility] 1,000 ml/hr, 017 Medical Infuse Over: 1 Center hr, Route: IV, 1,000, Drug form: INJ, ONCE, Priority: STAT, Dosing Weight 77.273 kg, Start date: 03/15/17 18:23:00 CDT, Duration: 1 doses or times, Stop date: 03/15/17 18:23:00 CDT Reglan 10 mg, 2 mL, Inactive [facility] Route: IVP, 017 Medical Drug form: Center INJ, ONCE, Dosing Weight 77.273, kg, Priority: STAT, Start date: 03/15/17 18:23:00 CDT, Stop date: 03/15/17 18:23:00 CDTNotes: (Same as: Reglan) Allergies, Adverse Reactions, Alerts Substance Category Reaction Severity Reaction Status Date Comments Source type Reported clindamycin Assertion Drug Active [facility] Immunizations Immunization Date Given Site Status Last Updated Comments Source Results Order Name Results Value Reference Date Interpretation Comments Source Range BODY FLUIDS WBC CSF 3 /mm3 0 - 53 03/16 [facility] [address] [place] [address] BODY FLUIDS RBC CSF 4450 /mm3 0 - 03 03/16 [facility] BODY FLUIDS Supernat CSF Colorless Colorless 03/16 [facility] (03/15/17 8:17 PM) [place] BODY FLUIDS Clarity CSF Slight Clear 03/16 [facility] *ABN* [place] (03/15/17 8:17 PM) BODY FLUIDS Color CSF Colorless Colorless 03/16 [facility] (03/15/17 8:17 PM) [place] BODY FLUIDS Comment CSF Differentia 03/16 [facility] l [facility] performed Center on WBC count of less than 5. BODY FLUIDS Tube Num CSF 1 03/16 [facility] ELECTROLYTE AGAP 10.1 meq/L 10.0 - 03/15 [facility] S 20.0 [facility] ELECTROLYTE eGFR 129 03/15 Result Comment: The eGFR is calculated using the CKD-EPI formula. In most young, healthy individuals the eGFR will be > 90 mL/min/1.73m2. The eGFR declines with age. An eGFR of 60-89 may be normal in [facility] mL/min/1.73 /2016 some populations, particularly the elderly, for whom the CKD-EPI formula has not been extensively validated. Use of the eGFR is not recommended in the following populations: [place] [address] Center Individuals with unstable creatinine concentrations, including [...] CO2 24 meq/L 24 - 32 03/15 [facility] [address] [place] [address] ELECTROLYTE Calcium Lvl 8.2 mg/dL 8.5 - 10.5 03/15 [facility]2016 [facility] ELECTROLYTE Creatinine 0.42 mg/dL 0.50 - 03/15 [facility] Lvl 1.40 [facility] ELECTROLYTE Sodium Lvl 140 meq/L 135 - 145 03/[address] ELECTROLYTE Potassium 4.1 meq/L 3.5 - 5.1 03/15 [facility] ELECTROLYTE BUN 11 mg/dL 7 - 22 03/[address] ELECTROLYTE Chloride Lvl 110 meq/L 95 - 109 03/[address] ELECTROLYTE Glucose Lvl 90 mg/dL 70 - 99 03/[address] HEMATOLOGY Microcyte 2+ None Seen 03/15 [facility]* Center (03/15/17 6:55 PM) HEMATOLOGY Eosinophils 0.1 K/CMM 0.0 - 0.5 03/15 [facility] HEMATOLOGY Eosinophils 1.9 % 0.0 - 4.0 03/15 [facility]2016 [facility] HEMATOLOGY Monocytes 6.3 % 2.0 - 12.0 03/[address] HEMATOLOGY Lymphocytes 28.3 % 20.0 - 03/15 [facility] 40.0 [facility] HEMATOLOGY Segs-Bands # 3.7 K/CMM 1.5 - 8.1 03/[address] HEMATOLOGY Basophils 0.4 % 0.0 - 1.0 03/[address] HEMATOLOGY Lymphocytes 1.6 K/CMM 1.0 - 5.5 03/15 [facility]2016 [facility] HEMATOLOGY Monocytes # 0.4 K/CMM 0.0 - 0.8 03/15 [facility] HEMATOLOGY Plt Morph Normal 03/15 Medical (03/15/17 6:55 PM) [place] HEMATOLOGY Segs 63.1 % 45.0 - 03/15 75.0 /2016 [facility] HEMATOLOGY MPV 7.6 fL 7.4 - 10.4 03/15 [facility] HEMATOLOGY MCH 20.2 pg 27.0 - 03/15 [place] 31.0 [facility] HEMATOLOGY MCHC 29.3 g/dL 32.0 - 03/15 Result 36.0 Comment: Medical rechecked [place] HEMATOLOGY RDW 18.6 % 11.5 - 03/15 14. [facility] HEMATOLOGY Platelet 199 K/CMM 133 - 450 03/15 [facility] HEMATOLOGY MCV 69.0 fL 80.0 - 03/15 98.0 [facility] HEMATOLOGY RBC 4.28 M/CMM 4.20 - 03/15 [place] 5.40 [facility] HEMATOLOGY Hgb 8.7 g/dL 12.0 - 03/15 16.0 [facility] HEMATOLOGY Hct 29.5 % 36.0 - 03/15 48.0 /2016 [facility] HEMATOLOGY WBC 5.8 K/CMM 3.7 - 10.4 03/15 [facility] HEMATOLOGY PT 12.9 s 12.0 - 03/15 14.7 [facility] HEMATOLOGY PTT 28.1 s 22.9 - 03/15 [place] 35.8 [facility] HEMATOLOGY INR 0.95 0.85 - 03/15 [place] 1. [facility] BLOOD BANK ABO/Rh O POS 03/15 RESULTS [facility] BLOOD BANK Antibody Negative 03/15 [facility] RESULTS [facility] (03/15/17 6:48 PM) [place] Brain wo Brain wo EXAM: CT BRAIN WITHOUT CONTRAST 03/15 - [facility] contrast CT contrast CT /2016 - [facility] This report was dictated by a Timber Treating Tank Operator/Fellow. I have personally reviewed the images as Center well as the Resident's interpretation and agree with the findings. DATE: 03/15/2017 Read by: Geo Christopher MD Resident: Geo Christopher MD Dictated Date/time: 03/15/17 21:44 Electronically Signed by: Ulises Darling MD 03/15/17 22:50 FINAL REPORT INDICATION: STEALTH PROTOCOL COMPARISON: Brain CT performed earlier of the same date at [facility] at 1253 hours TECHNIQUE: Multiple contiguous axial [...] EXAM: XR CHEST 1 VIEW 03/15 - [facility] DX /2016 - Medical This report was dictated by a Tim[employer] Treating Tank Operator/Fellow. I have personally reviewed the images as [...] Comments Source Systolic (mm Hg) 123 03/19/2017 [facility] Diastolic (mm Hg) 85 03/19/2017 [facility] Respitory Rate 18 03/19/2017 [facility] Heart Rate 84 03/19/2017 [facility] Temperature Oral (F) 97.7 F 03/19/2017 [facility] Temperature Oral (F) 97.8 F 03/19/2017 [facility] Heart Rate 70 03/19/2017 [facility] Systolic (mm Hg) 124 03/19/2017 [facility] Diastolic (mm Hg) 86 03/19/2017 [facility] Respitory Rate 18 03/19/2017 [facility] Heart Rate 69 03/19/2017 [facility] Temperature Oral (F) 97.1 F 03/19/2017 [facility] Systolic (mm Hg) 116 03/19/2017 [facility] Diastolic (mm Hg) 73 03/19/2017 [facility] Respitory Rate 18 03/19/2017 [facility] Weight 77.409 03/16/2017 [facility] BMI Calculated 49.88 03/16/2017 [facility] Weight 77.273 03/16/2017 [facility] Height 124.46 cm 03/16/2017 [facility] Weight 77.273 03/15/2017 [facility] BMI Calculated 49.88 03/15/2017 [facility] Height 124.46 cm 03/15/2017 [facility] Encounters Location Location Encounter Encounter Reason Attending ADM DC Status Source Details Type Number For Provider Date Date Visit [facility] [id number] [place] 03/15 03/19 [facility] Naveed Lares /2016 [facility] Procedures Procedure Code Date Perfomer Comments Source Cholecystectomy [id number] [facility] Creation of BALLISTIC TECHNICIAN shunt [id number] [facility]
[2018-07-04] MEDS ORDERED: ACETAMINOPHEN 325 MG TABLET ONE (15:48)
[2018-07-04] MEDS ORDERED: ONDANSETRON 4 MG/2 ML VIAL ONE (15:48)
[2018-07-04] MEDS ORDERED: NA CHLORIDE 0.9% 1,000 ML ONE ×2 (15:48→19:35)
[2018-07-04 16:40] LABS: Absolute Lymphocytes (CBC) 0.5 K/uL (0.7-4.9); Absolute Monocytes 0.1 K/uL (0.1-1.3); Absolute Neutrophil 4.9 K/uL (1.8-8.0); Basophils % 0.4 % (0-1.3); Eosinophils % 0.1 % (0-4.4); Hematocrit 31.9 % (36.0-45.0); Lymphocytes % 8.5 % (15.3-44.8); MCH 20.7 pg (27.0-35.0); MCV 68.1 fL (80-100); MPV 7.6 fL (7.6-11.3); Monocytes % 2.6 % (3.3-12.3); RBC Red Blood Cell Count 4.69 M/uL (3.86-4.86)
[2018-07-04 17:00] LABS: ALT/SGPT 13 U/L (12-78); AST/SGOT 13 U/L (15-37); Albumin 2.9 g/dL (3.4-5.0); Alkaline Phosphatase 106 U/L (45-117); BUN Blood Urea Nitrogen 11 mg/dL (7-18); Bicarbonate 27 mmol/L (21-32); Bilirubin Direct 0.5 mg/dL (0-0.2); Bilirubin Total 1.4 mg/dL (0.2-1.0); Glucose Level 93 mg/dL (74-106); Lipase 55 U/L (73-393); Potassium 3.7 mmol/L (3.5-5.1); Protein, Total 7.3 g/dL (6.4-8.2); Sodium Level 138 mmol/L (136-145)
--- NOTE | 2018-07-04 17:34 | RAD REPORT ---
EXAM DESCRIPTION: CT - Abdomen Pelvis W Contrast - 07/04/2018 5:23 pm CLINICAL HISTORY: Abdominal pain with urinary tract infection COMPARISON: 2014 TECHNIQUE: Computed axial tomography of the abdomen pelvis was obtained. 100 cc Isovue-300 was admin istered intravenously. Oral contrast was not requested which limits evaluation of bowel. All CT scans are performed using dose optimization technique as appropriate and may include automated exposure control or mA/KV adjustment according to patient size. FINDINGS: The liver, spleen, pancreas, adrenal and right kidney appear unremarkable. The left kidney is atrophic and contains a 15 millimeter nonobstructing calculus. Little normal appea ring parenchyma. There is no evidence of diverticulitis. A MONOTYPE MACHINIST shunt in place IMPRESSION: No acute abnormality is displayed.
--- NOTE | 2018-07-04 17:35 | RAD REPORT ---
EXAM DESCRIPTION: [employer] Single View07/04/2018 4:02 pm CLINICAL HISTORY: fever COMPARISON: none FINDINGS: The lungs appear clear of acute infiltrate. The heart is borderline enlarged. POWERHOUSE ELECTRICIAN APPRENTICE shunts c ourse the right hemithorax IMPRESSION: No acute abnormalities displayed
[2018-07-04 18:13] LABS: Anisocytosis 1+; Blood Morphology Comment NOTED (NOT SEEN); Platelet Estimate ADEQ; Urine White Blood Cell Casts OK
[2018-07-04] MEDS ORDERED: CEFTRIAXONE/SWI 1gm 1 GM/10 ML SYR ONE (20:07)
[2018-07-04 20:10] LABS: Urine Blood 1+ (NEG); Urine Glucose NEGATIVE (NEG); Urine Protein 1+ (NEG); Urine Specific Gravity 1.015 (1.005-1.030)
[2018-07-04] MEDS ORDERED: MORPHINE 2 MG/ML SYR ONE (20:12)
--- NOTE | 2018-07-04 20:20 | ER ---
Nurse's Notes [facility] Name: Luz Elena Pacheco Age: 42 yrs Sex: Female : 1975 Arrival Date: 07/04/2018 Time: 14:36 Bed 8 Private MD: Diagnosis: Urinary tract infection, site not specified;Fever, unspecified Presentation: 07/04 14:36 Presenting complaint: EMS states: Pt reports waking approx 1 hour ago w/ 102 fever, pt ph also reports headache and body aches, currently taking antibiotics for UTI, family administered 400 mg ibuprofen, EMS states that they observed multiple bedbugs in bed and on pt when moving pt from bed to stretcher. Transition of care: patient was not received from another setting of care. Onset of symptoms was July 04, 2018. Risk Assessment: Do you want to hurt yourself or someone else? Patient reports no desire to harm self or others. Initial Sepsis Screen: Does the patient meet any 2 criteria? No. Patient's initial sepsis screen is negative. Does the patient have a suspected source of infection? No. Patient's initial sepsis screen is negative. Care prior to arrival: None. 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 - Social history:: Smoking status: Patient/guardian denies using tobacco. - Ebola Screening: : No symptoms or risks identified at this time. Screenin:41 Abuse screen: Denies threats or abuse. Denies injuries from another. Nutritional ph screening: No deficits noted. Tuberculosis screening: No symptoms or risk factors identified. Fall Risk No fall in past 12 months (0 pts). Secondary diagnosis (15 points) impaired mobility, No IV (0 pts). Ambulatory Aid- None/Bed Rest/Nurse Assist (0 pts). Gait- Impaired (20 pts.). Mental Status- Oriented to own ability (0 pts). Total Bradley Fall Scale indicates Low Risk Score (25-44 pts). Fall prevention measures have been instituted. Side Rails Up X 2 Frequent Obs/Assesments occuring As available Patient and Family Educated on Fall Prevention Program and strategies. Assessment: 14:46 General: Appears in no apparent distress. comfortable, obese, Behavior is calm, ph cooperative, appropriate for age, Reports chills for fever for 0-12 hours. Pain: Complains of pain in head and "all over". Neuro: Level of Consciousness is awake, alert, obeys commands, Oriented to person, place, time, situation, Reports headache Denies weakness dizziness. Cardiovascular: Capillary refill < 3 seconds in bilateral fingers Patient's skin is warm and dry. Respiratory: Airway is patent Respiratory effort is even, unlabored, Respiratory pattern is regular, symmetrical, Denies cough, shortness of breath. GI: Abdomen is round non-distended, Reports nausea, Patient currently denies abdominal pain, diarrhea, vomiting. Derm: Skin is healthy with good turgor, Skin is pink, warm \\T\\ dry. Musculoskeletal: Circulation, motion, and sensation intact. Range of motion: limited in lower extremities. 15:30 Reassessment: Patient appears in no apparent distress at this time. No changes from previously documented assessment. pt family member remains at bedside at this time, VS remain out of range, Mumtaz ADAN notified, awaiting orders at this time. 16:30 Reassessment: Patient appears in no apparent distress at this time. pt mother at bedside at this time, awaiting dispo orders, Mumtaz ADAN notified of pt condition, awaiting new orders at this time. 17:07 Reassessment: Pt given bed bath and changed of clothing and placed into new grown. Pt ss is grateful for care received. No bed bugs found when changing linens and bathing patient. 19:30 Reassessment: Patient is alert, oriented x 3, equal unlabored respirations, skin lp1 warm/dry/pink. complaint of headache at this time Patient states feeling better. 20:30 Reassessment: Patient appears in no apparent distress at this time. Patient and/or lp1 family updated on plan of care and expected duration. Pain level reassessed. Patient aware of pending admission; mother at bedside. 21:30 Reassessment: Patient is alert, oriented x 3, equal unlabored respirations, skin lp1 warm/dry/pink. States headache improved; Patient states symptoms have improved. General: Appears in no apparent distress. 22:30 Reassessment: Patient appears in no apparent distress at this time. Patient and/or lp1 family updated on plan of care and expected duration. Pain level reassessed. Patient is alert, oriented x 3, equal unlabored respirations, skin warm/dry/pink. Vital Signs: 14:40 BP 142 / 89; Pulse 121; Resp 20; Temp 100.4(O); Pulse Ox 98% on R/A; ph 17:00 Temp 100.5(O); ss 18:30 Pulse 115; Resp 22; Temp 98.6(O); Pulse Ox 92% on R/A; sg 18:55 BP 110 / 65; sg 19:30 BP 113 / 79; Pulse 115; Resp 21; Pulse Ox 96% on R/A; lp1 20:00 BP 123 / 82; Pulse 110; Resp 22; Pulse Ox 97% on R/A; lp1 21:00 BP 101 / 75; Pulse 117; Resp 22; Pulse Ox 98% on R/A; lp1 22:00 BP 100 / 78; Pulse 122; Resp 24; Pulse Ox 100% on R/A; lp1 23:00 BP 100 / 68; Pulse 126; Resp 22; Temp 100.1(O); Pulse Ox 100% on R/A; lp1 ED Course: 14:36 Patient arrived in ED. ph 14:40 Triage completed. ph 14:42 Arm band placed on. ph 14:42 Patient has correct armband on for positive identification. Bed in low position. Call ph light in reach. Side rails up X2. Pulse ox on. NIBP on. Warm blanket given. 14:55 Justin Flowers PA is PHCP. [facility] 14:55 Vince Kent MD is Attending Physician. jm 15:29 Ira Hussein, THOM is Primary Nurse. ph 15:40 Initial lab(s) drawn, by me, sent to lab. Inserted saline lock: 22 gauge in left sg antecubital area, using aseptic technique. Blood collected. 15:45 Radiology exam delayed due to lab results not completed at this time. (BUN/Creatinine) bq test not completed at this time. 16:02 Chest Single View XRAY In Process Unspecified. EDMS 16:30 Urine collected: straight cath specimen, cloudy. Straight cath inserted, using sterile sg technique, 16 Fr. Specimen obtained. 17:24 CT Abd/Pelvis - W/Contrast In Process Unspecified. EDMS 18:00 First set of blood cultures drawn by ED staff. sg 18:25 Second set of blood cultures drawn by ED staff. Initial lab(s) drawn, sent to lab. sg Lactate collected. 20:19 Samantha Heck MD is Hospitalizing Provider. [facility] 20:21 No provider procedures requiring assistance completed. Patient admitted, IV remains in lp1 place. Administered Medications: 16:00 Drug: Tylenol 650 mg Route: PO; ss 16:05 Drug: NS 0.9% 1000 ml Route: IV; Rate: 1 bolus; Site: left antecubital; 16:05 Drug: Zofran 4 mg Route: IVP; Site: left antecubital; 19:33 Drug: NS 0.9% 1000 ml Route: IV; Rate: 1 bolus; Site: left antecubital; lp1 21:00 Follow up: IV Status: Completed infusion; IV Intake: 1000ml lp1 20:31 Drug: Rocephin - (cefTRIAXone) 1 grams Route: IVPB; Infused Over: 30 mins; Site: left lp1 antecubital; 21:00 Follow up: Response: No adverse reaction; IV Status: Completed infusion; IV Intake: [id number] 20:32 Drug: morphine 2 mg Route: IVP; Site: left antecubital; lp1 21:30 Follow up: Response: Pain is decreased lp1 Intake: 21:00 IV: 1000ml; Total: 1000ml. lp1 21:00 IV: 10ml; Total: 1010ml. lp1 Outcome: 20:19 Decision to Hospitalize by Provider. zabrina 20:21 Condition: stable lp1 20:21 Instructed on the need for admit. 23:18 Admitted to Med/surg accompanied by nurse, via stretcher, room 222, with chart, Report lp1 called to Gege Schofield LVN 23:19 Patient left the ED. lp1 Signatures: Dispatcher [employer] EDMS Zia Castillo RN RN Justin Montero PA PA jmm Sera Garcia Shelby, RN RN Leda Rankin RN RN lp1 Hussein, Ira, RN RN ph Corrections: (The following items were deleted from the chart) 16:59 06:05 NS 0.9% 1000 ml IV at 1 bolus in left antecubital ss 17: 16:58 Straight cath inserted, using sterile technique, 16 Fr. Specimen obtained. [facility] : 16:58 Urine collected: straight cath specimen, cloudy, sg : 16:40 Inserted saline lock: 22 gauge in left antecubital area, using aseptic technique. Blood collected. 16:40 Initial lab(s) drawn, by me, sent to lab. [facility]
--- NOTE | 2018-07-04 20:20 | EDPHYS ---
Physician Documentation [facility] Name: Luz Elena Pacheco Age: 42 yrs Sex: Female : 1975 Arrival Date: 07/04/2018 Time: 14:36 Bed 8 Private MD: ED Physician Vince Kent HPI: 07/04 15:20 This 42 yrs old Female presents to ER via EMS with complaints of Flu Symptoms.jmm 15:20 Onset: The symptoms/episode began/occurred this morning. Associated signs and symptoms: jmm Pertinent positives: fever, headache. Modifying factors: there are no obvious modifying factors. Associated signs and symptoms: Pertinent positives: abdominal pain, Pertinent negatives: cough, runny nose, sinus congestion, sore throat. This is a 42 year old female with a history of spina bifida that presents to the ED with fever, headache chills beginning this morning. Patient states she takes Macrodantin for chronic UTI's. Denies cough, congestion, denies infectious exposure. . 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 - Social history:: Smoking status: Patient/guardian denies using tobacco. - Ebola Screening: : No symptoms or risks identified at this time. ROS: 15:20 Cardiovascular: Negative for chest pain, palpitations, and edema, Respiratory: Negative jmm for shortness of breath, cough, wheezing, and pleuritic chest pain. 15:20 Constitutional: Positive for body aches, fever, malaise. 15:20 Abdomen/GI: Positive for abdominal pain. 15:20 All other systems are negative. Exam: 15:20 Constitutional: This is a well developed, well nourished patient who is awake, alert, jmm and in no acute distress. Head/Face: atraumatic. Eyes: EOMI, no conjunctival erythema appreciated ENT: Moist Mucus Membranes Neck: Trachea midline, Supple Chest/axilla: Normal chest wall appearance and motion. Cardiovascular: Regular rate and rhythm. No edema appreciated Respiratory: Normal respirations, no respiratory distress appreciated 15:20 Abdomen/GI: Inspection: abdomen appears normal, Bowel sounds: normal, Palpation: soft, moderate abdominal tenderness, in the right lower quadrant and left lower quadrant. 15:20 Musculoskeletal/extremity: ROM: intact in all extremities. 15:20 Skin: mild erythema noted to the right distal thigh with multiple pustular lesions. . 15:20 Neuro: Orientation: is normal, Mentation: is normal, Memory: is normal. 15:20 Psych: Behavior/mood is pleasant, cooperative. Vital Signs: 14:40 BP 142 / 89; Pulse 121; Resp 20; Temp 100.4(O); Pulse Ox 98% on R/A; ph 17:00 Temp 100.5(O); ss 18:30 Pulse 115; Resp 22; Temp 98.6(O); Pulse Ox 92% on R/A; sg 18:55 BP 110 / 65; sg 19:30 BP 113 / 79; Pulse 115; Resp 21; Pulse Ox 96% on R/A; lp1 20:00 BP 123 / 82; Pulse 110; Resp 22; Pulse Ox 97% on R/A; lp1 21:00 BP 101 / 75; Pulse 117; Resp 22; Pulse Ox 98% on R/A; lp1 22:00 BP 100 / 78; Pulse 122; Resp 24; Pulse Ox 100% on R/A; lp1 23:00 BP 100 / 68; Pulse 126; Resp 22; Temp 100.1(O); Pulse Ox 100% on R/A; lp1 MDM: 15:20 Patient medically screened. [facility] 19:37 Data reviewed: vital signs, nurses notes. Counseling: I had a detailed discussion with [facility] the patient and/or guardian regarding: the historical points, exam findings, and any diagnostic results supporting the discharge/admit diagnosis, lab results, radiology results, the need for further work-up and treatment in the hospital. ED course: I discussed the patient with Dr. Heck whom accepted admission. 07/04 14:38 Order name: Flu; Complete Time: 15:21 07/04 15:23 Order name: Basic Metabolic Panel; Complete Time: 17:15 [facility] 07/04 15:23 Order name: CBC with Diff; Complete Time: 18:37 [facility] 07/04 15:23 Order name: Creatinine for Radiology; Complete Time: 17:15 [facility] 07/04 15:23 Order name: Hepatic Function; Complete Time: 17:15 [facility] 07/04 15:23 Order name: Lipase; Complete Time: 17:15 [facility] 07/04 15:23 Order name: CT Abd/Pelvis - W/Contrast; Complete Time: 17:35 [facility] 07/04 15:23 Order name: Urine Culture [facility] 07/04 15:23 Order name: Urine Microscopic Only; Complete Time: 20:22 [facility] 07/04 16:52 Order name: CBC Smear Scan; Complete Time: 18:37 [facility] 07/04 16:52 Order name: Urine Dipstick--Ancillary (enter results); Complete Time: 20:11 lt1 07/04 17:15 Order name: Lactate; Complete Time: 19:01 [facility] 07/04 17:15 Order name: Procalcitonin [facility] 07/04 17:15 Order name: Blood Culture Adult (2) [facility] 07/04 15:23 Order name: IV Saline Lock; Complete Time: 17:00 [facility] 07/04 15:23 Order name: Labs collected and sent; Complete Time: 17:00 [facility] 07/04 15:23 Order name: Urine Dipstick-Ancillary (obtain specimen); Complete Time: 17:01 [facility] 07/04 15:23 Order name: Chest Single View XRAY; Complete Time: 17:36 [facility] Administered Medications: 16:00 Drug: Tylenol 650 mg Route: PO; ss 16:05 Drug: NS 0.9% 1000 ml Route: IV; Rate: 1 bolus; Site: left antecubital; ss 16:05 Drug: Zofran 4 mg Route: IVP; Site: left antecubital; ss 19:33 Drug: NS 0.9% 1000 ml Route: IV; Rate: 1 bolus; Site: left antecubital; lp1 21:00 Follow up: IV Status: Completed infusion; IV Intake: 1000ml lp1 20:31 Drug: Rocephin - (cefTRIAXone) 1 grams Route: IVPB; Infused Over: 30 mins; Site: left lp1 antecubital; 21:00 Follow up: Response: No adverse reaction; IV Status: Completed infusion; IV Intake: [id number] 20:32 Drug: morphine 2 mg Route: IVP; Site: left antecubital; lp1 21:30 Follow up: Response: Pain is decreased lp1 Disposition: 07/05 07:53 Co-signature as Attending Physician, Vince Kent MD. Disposition: 07/04/18 20:19 Hospitalization ordered by Samantha Heck for Observation. Preliminary diagnosis are Urinary tract infection, site not specified, Fever, unspecified. - Bed requested for Telemetry/MedSurg (observation). - Status is Observation. lp1 - Condition is Stable. - Problem is new. - Symptoms are unchanged. UTI on Admission? Yes Signatures: Dispatcher [employer] [facility] Soha Gutiérrez RN RN Justin Flowers PA PA [facility] Kay Garcia RN RN Leda Ranikn RN RN 1 Ira Hussein RN RN ph Starr, MD VIVIEN Clarke Corrections: (The following items were deleted from the chart) 07/04 20:19 20:01 Head Brain Wo Cont+CT.RAD.BRZ ordered. [facility] 21:15 20:19 Hospitalization Ordered by Samantha Heck MD for Observation. Preliminary kl diagnosis is Urinary tract infection, site not specified; Fever, unspecified. Bed requested for Telemetry/MedSurg (observation). Status is Observation. Condition is Stable. Problem is new. Symptoms are unchanged. UTI on Admission? Yes. [facility] 23:19 21:15 07/04/2018 20:19 Hospitalization Ordered by Samantha Heck MD for Observation. lp1 Preliminary diagnosis is Urinary tract infection, site not specified; Fever, unspecified. Bed requested for Telemetry/MedSurg (observation). Status is Observation. Condition is Stable. Problem is new. Symptoms are unchanged. UTI on Admission? Yes. kl
[2018-07-04 20:21] LABS: Urine Bacteria LOADED /HPF (<20); Urine Culture Reflex Order NOT NEEDED; Urine RBC <5 /HPF (NONE SEEN)
--- NOTE | 2018-07-04 21:16 | P.HP ---
Certification for Inpatient Patient admitted to: Inpatient With expected LOS: >2 Midnights Practitioner: I am a practitioner with admitting privileges, knowledge of patient current condition, hospital course, and medical plan of care. Services: Services provided to patient in accordance with Admission requirements found in Title 42 Section 412.3 of the Code of Federal Regulations Patient History Date of Service: 07/04/18 Reason for admission: complicatd UTI History of Present Illness: Ms Pacheco is a 42 years old woman with history of neurogenic bladder requiring straight catheterization twice a day due to spina bifida, she also has a MARINA PORTER shunt, who came to ED complaining of fever (102.0 F) and chills, started this afternoon. She has had some nausea but no abdominal pain. her mother who is her caregiver denied any strong odor or change in color of urine. She has no focal neurologic symptoms. Lab work shows normal WBC count, lactate normal as well. Procalcitonin pending, UA abnormal consitent with UTI. She was febrile at arrival 100.4 F, BP, within normal limits initially, however, during her stay in ER, the lowest was 79/60's. CT abd/pelvis shows nor acute abnormalities. Allergies Clindamycin Allergy (Uncoded 02/19/16 09:55) Unknown Home medications list reviewed: Yes Home Medications: Nitrofuran Macro [Macrodantin] 50 mg PO BEDTIME 02/19/16 - Past Medical/Surgical History -: HTN -: spina bifida -: shunts -: back surgery -: bilateral leg surgery - Family History Family History: Reviewed- Non-Contributory - Social History Smoking Status: Never smoker Alcohol use: No CD- Drugs: No Caffeine use: Yes Place of Residence: Home Review of Systems 10-point ROS is otherwise unremarkable Physical Examination - Physical Exam General: Alert, In no apparent distress HEENT: Atraumatic, Mucous membr. moist/pink, Sclerae nonicteric Neck: Supple, 2+ carotid pulse no bruit, No LAD, Without JVD or thyroid abnormality Respiratory: Clear to auscultation bilaterally, Normal air movement Cardiovascular: Regular rate/rhythm, Normal S1 S2 Gastrointestinal: Normal bowel sounds, No tenderness Musculoskeletal: No tenderness Integumentary: No rashes Neurological: Normal speech, Normal tone, Normal affect Lymphatics: No axilla or inguinal lymphadenopathy - Studies Laboratory Data (last 24 hrs) 07/04/18 16:15: Creatinine 0.40 L 07/04/18 16:15: WBC 5.5, Hgb 9.7 L, Hct 31.9 L, Plt Count 185 07/04/18 16:15: Sodium 138, Potassium 3.7, BUN 11, Creatinine 0.50 L, Glucose 93 , Total Bilirubin 1.4 H, AST 13 L, ALT 13, Alkaline Phosphatase 106, Lipase 55 L Microbiology Data (last 24 hrs): 07/04/18 14:40 Nasopharnyx Influenza Type A Antigen Screen - Final 07/04/18 14:40 Nasopharnyx Influenza Type B Antigen Screen - Final Assessment and Plan - Problems (Diagnosis) (1) Complicated UTI (urinary tract infection) Current Visit: Yes Status: Acute (2) Neurogenic dysfunction of the urinary bladder Current Visit: Yes Status: Acute (3) Sepsis Current Visit: Yes Status: Acute Qualifiers: Sepsis type: sepsis due to unspecified organism Qualified Code(s): A41.9 - Sepsis, unspecified organism - Plan The patient will be admitted to the hospital due to urosepsis, her BP is in the lower side, continue IV fluids, empiric antibiotic treatment (Levaquin) and symptomatic medication for nausea and fever. Blood and Urine cultures are in process. - Advance Directives Does patient have a Living Will: No Does patient have a Durable POA for Healthcare: No - Code Status/Comfort Care Code Status Assessed: Yes Code Status: Full Code
[2018-07-04] MEDS ORDERED: ONDANSETRON 4 MG/2 ML VIAL IV PRN (23:30)
[2018-07-04] MEDS ORDERED: ACETAMINOPHEN 500 MG TAB PO PRN (23:30)
[2018-07-05] MEDS: Levofloxacin 750mg IV 750 MG/150 ML BAG IV SCH ×2 (00:43→22:47)
[2018-07-05] MEDS: NA CHLORIDE 0.9% 1,000 ML IV SCH ×3 (00:44→19:30)
[2018-07-05 06:29] LABS: Absolute Lymphocytes (CBC) 0.5 K/uL (0.7-4.9); Absolute Monocytes 1.3 K/uL (0.1-1.3); Absolute Neutrophil 7.4 K/uL (1.8-8.0); Basophils % 0.2 % (0-1.3); Eosinophils % 0.1 % (0-4.4); Hematocrit 28.1 % (36.0-45.0); Lymphocytes % 5.1 % (15.3-44.8); MCH 20.8 pg (27.0-35.0); MCV 68.8 fL (80-100); MPV 7.5 fL (7.6-11.3); Monocytes % 14.5 % (3.3-12.3); RBC Red Blood Cell Count 4.08 M/uL (3.86-4.86)
[2018-07-05 06:44] LABS: BUN Blood Urea Nitrogen 10 mg/dL (7-18); Bicarbonate 23 mmol/L (21-32); Glucose Level 107 mg/dL (74-106); Potassium 3.7 mmol/L (3.5-5.1); Sodium Level 140 mmol/L (136-145)
[2018-07-05] MEDS ORDERED: KCL 20 MEQ/100 mL IVPB 20 MEQ/100 ML BAG IV SCH (08:00)
[2018-07-05] MEDS: ENOXAPARIN 40 MG/0.4 ML SQ SCH (09:04)
--- NOTE | 2018-07-05 18:05 | PN ---
Date of Progress Note: 07/05/2018 Subjective: Patient seen and examined. Chart reviewed and case discussed with RN. The patient stat es she feels significantly better. Not having as many chills. Medications: List reviewed. Physical Examination: Vital Signs: Temperature 97, heart rate 95, blood pressure 115/61, respirations 20, O2 98% on room a ir. T-max was 100.5 yesterday. General: Awake, alert, oriented x3 ill-appearing female, morbidly obese. CV: S1 and S2. Peripheral pulses present. No murmurs. Regular rate and rhythm. No clicks. Respiratory: Moving air well bilaterally. No wheezing or stridor. Gastrointestinal: Abdomen is soft, nontender, nondistended. Positive bowel sounds. Extremities: No clubbing, cyanosis. The patient has chronic lymphedema of bilateral lower extremiti es. Skin: Chronic venous stasis changes with some bullous lesions on the lower extremities. Neuro: The patient has spina bifida. Unable to move her lower extremities. Laboratory Data: Sodium 140, potassium 3.7, chloride 109, CO2 23, BUN 10, creatinine 0.4, glucose 10 7, calcium 7.5. Procalcitonin 6.93. WBC 9.3, hemoglobin and hematocrit 8.5 and 28.1, platelets 166, neutrophils 80%. Blood cultures pending. Urine culture growing out 4+ gram-negative rods. Influen za screen is negative. Assessment: A 42-year-old female with: 1.Sepsis. The patient was hypotensive in the Emergency Room, temperature 100.5, still somewhat tach ycardic. White count normal, however, procalcitonin is elevated at 6.93. Source of infection is uri nary tract infection. We will continue with intravenous antibiotics. Follow up on cultures. Urine culture showing gram-negative rods. ID and sensitivity pending. 2.Acute cystitis without hematuria secondary to gram-negative rods. Continue antibiotics for now in travenous and follow up on culture sensitivities. 3.Neuro. Neurogenic bladder secondary to spina bifida. 4.Spina bifida. 5.Chronic lower extremity lymphedema. 6.Morbid obesity, BMI 58. 7.Gastrointestinal and deep venous thrombosis prophylaxis addressed. Plan: Continue IV fluids and IV antibiotics. Resume home medications as appropriate. Likely discha rge in the next 24 to 48 hours depending on clinical response. SA/MODL Voice ID: [id number] Report ID: [id number]
[2018-07-06] MEDS: NA CHLORIDE 0.9% 1,000 ML IV SCH ×3 (02:50→14:54)
[2018-07-06 06:28] LABS: Absolute Lymphocytes (CBC) 0.6 K/uL (0.7-4.9); Absolute Monocytes 0.7 K/uL (0.1-1.3); Absolute Neutrophil 3.2 K/uL (1.8-8.0); Basophils % 0.5 % (0-1.3); Eosinophils % 4.9 % (0-4.4); Hematocrit 26.9 % (36.0-45.0); Lymphocytes % 12.9 % (15.3-44.8); MCH 20.4 pg (27.0-35.0); MCV 68.2 fL (80-100); MPV 8.1 fL (7.6-11.3); Monocytes % 14.5 % (3.3-12.3); RBC Red Blood Cell Count 3.95 M/uL (3.86-4.86)
[2018-07-06 06:41] LABS: ALT/SGPT 14 U/L (12-78); AST/SGOT 16 U/L (15-37); Albumin 2.3 g/dL (3.4-5.0); Alkaline Phosphatase 100 U/L (45-117); BUN Blood Urea Nitrogen 7 mg/dL (7-18); Bicarbonate 25 mmol/L (21-32); Bilirubin Total 0.6 mg/dL (0.2-1.0); Glucose Level 86 mg/dL (74-106); Potassium 3.8 mmol/L (3.5-5.1); Protein, Total 6.3 g/dL (6.4-8.2); Sodium Level 142 mmol/L (136-145)
[2018-07-06 07:03] LABS: Magnesium 1.6 mg/dL (1.8-2.4); Phosphorus 1.9 mg/dL (2.5-4.9)
[2018-07-06] MEDS ORDERED: Meropenem 1000 MG/VIAL IV SCH (09:00)
[2018-07-06] MEDS ORDERED: POTASSIUM CL SA 10 MEQ TAB PO ONE (09:00)
[2018-07-06] MEDS ORDERED: MAGNESIUM SULFATE 1 gm IVPB 1 GM/100 ML BAG IV ONE (09:00)
[2018-07-06] MEDS: ENOXAPARIN 40 MG/0.4 ML SQ SCH (10:12)
[2018-07-06] MEDS: Meropenem 1,000 MG in NA CHLORIDE 0.9% 100 ML IV SCH ×2 (10:12→16:50)
--- NOTE | 2018-07-06 17:38 | PN ---
Date of Progress Note: 07/06/2018 Subjective: Patient was seen and examined. Chart reviewed and case discussed with RN. The patient is on isolation for ESBL Escherichia coli and bed bugs. No family at the bedside. Treatment plan ex plained. All questions answered. The patient understands that she will need a PICC line for long-te rm IV antibiotics. She was counseled regarding repeat use of single use instruments for her self cat heterization. She voiced understanding. Medications: List reviewed. Physical Examination: Vital Signs: Temperature 97.2, heart rate 111, blood pressure 138/98, respirations 18, O2 96% on margo m air. General: Awake, alert, and oriented x3. Ill-appearing female, morbidly obese. CV: S1, S2. Sinus tachycardia. No murmurs. Peripheral pulses present. Respiratory: Moving air well bilaterally. No wheezing. Gastrointestinal: Abdomen is soft, nontender, nondistended. Positive bowel sounds. Extremities: No clubbing or cyanosis. The patient does have lower extremity edema. Skin: The patient has chronic lymphedema to bilateral lower extremities. Neuro: Lower extremity paraplegia. Laboratory Data: Sodium 142, potassium 3.8, chloride 111, CO2 25, BUN 7, creatinine 0.3, glucose 86, calcium 7.7, phosphorus 1.9, magnesium 1.6, albumin 2.3. Procalcitonin 5.58. WBC 4.8, hemoglobin i s 28.1, hematocrit is 26.9, platelets 163, neutrophils 67%. Blood cultures prelim shows gram-negativ e rods. Urine culture shows ESBL Escherichia coli. Assessment: A 42-year-old female with: 1.Sepsis. The patient is still tachycardic, procalcitonin trending, however, still elevated. The p atient now afebrile. Source of infection is bacteremia and urinary tract infection. We will continu e with IV antibiotics. We will switch over to meropenem. Follow up on ID and sensitivity and blood cultures. We will obtain ID consultation. 2.Acute cystitis without hematuria secondary to extended spectrum beta-lactamase Escherichia coli. Antibiotics switched over to meropenem. The patient will need 2 weeks of IV antibiotics minimum. We will obtain PICC line. The patient is agreeable. 3.Bacteremia with gram-negative rods. ID and sensitivity pending. Continue antibiotics. 4.Neurogenic bladder secondary to spina bifida. 5.Spina bifida. 6.Chronic lower extremity lymphedema. 7.Morbid obesity, BMI 58. 8.Hypophosphatemia, we will replace and monitor. 9.Hypomagnesemia. We will replace and continue to monitor magnesium level. 10.Gastrointestinal and deep venous thrombosis prophylaxis addressed. Plan: Social work referral for LTAC versus SNF for long-term IV antibiotics and wound care. /MISAEL Voice ID: [id number] Report ID: [id number]
--- NOTE | 2018-07-06 18:46 | RAD REPORT ---
EXAM DESCRIPTION: RAD - Chest Single View - 07/06/2018 6:38 pm CLINICAL HISTORY: PICC line placement COMPARISON: July 04 FINDINGS: Portable chest was obtained following placement of a left upper extremity PICC line. The c atheter tip is in the SVC atrial junction.
--- NOTE | 2018-07-06 19:59 | CON ---
History: The patient is a 42-year-old female with significant history of spina bifida, coming in wit h urinary tract infection secondary to ESBL bacteria and bilateral extremity lymphedema and weeping w ounds to the right leg. The patient denies any headache, nausea, vomiting, chest pain, abdominal jordon n, constipation or diarrhea. Past Medical History: Spina bifida, hypertension, back surgery, bilateral leg surgery, straight cath twice a day. Social History: Nonsmoker, nondrinker. Family History: Noncontributory. Medications: Meropenem. See MARs for other medication. Allergies: CLINDAMYCIN. Review of Systems: A 10-point review was performed. Physical Examination: General: This is a 42-year-old female, lying in bed, not in any acute cardiopulmonary distress. Vital Signs: Temperature 97.2, heart rate 111, respiration 18, blood pressure 138/98. HEENT: Unremarkable. Neck: Supple. Lungs: Basal crackles. Heart: S1, S2. Regular. Abdomen: Soft. Bowel sounds present. Extremity: 4+ nonpitting edema. Open wound noted on the right leg with crusting noted on both lower extremity with erythematous changes. Laboratory Data: Shows WBC 4.8, hemoglobin 8.1, platelets 163. Chemistry shows sodium 142, potassiu m 3.8, chloride 111, bicarb 25, BUN 7, creatinine 0.3, glucose 86. Micro data shows E. coli ESBL in the urine, more than 100,000, sensitive to meropenem. Assessment And Plan: Urinary tract infection secondary to extended-spectrum beta-lactamase, lower ex tremities lymphedema with stasis ulcers and cellulitis. Consider starting patient on vancomycin. Xe roform to the wounds. Continue wound care and supportive care. Consider long-term acute care. We w ill follow the patient as needed. NF/MODL Voice ID: [id number] Report ID: [id number]
[2018-07-07] MEDS: Meropenem 1,000 MG in NA CHLORIDE 0.9% 100 ML IV SCH ×2 (00:43→09:55)
[2018-07-07] MEDS: NA CHLORIDE 0.9% 1,000 ML IV SCH ×2 (00:44→11:30)
[2018-07-07 05:01] LABS: Absolute Lymphocytes (CBC) 0.8 K/uL (0.7-4.9); Absolute Monocytes 0.3 K/uL (0.1-1.3); Absolute Neutrophil 2.9 K/uL (1.8-8.0); Basophils % 0.6 % (0-1.3); Eosinophils % 5.8 % (0-4.4); Hematocrit 26.4 % (36.0-45.0); Lymphocytes % 19.3 % (15.3-44.8); MCH 20.3 pg (27.0-35.0); MPV 8.1 fL (7.6-11.3); Monocytes % 7.6 % (3.3-12.3); RBC Red Blood Cell Count 3.85 M/uL (3.86-4.86)
[2018-07-07 05:05] LABS: MCV 68.4 fL (80-100)
[2018-07-07 05:19] LABS: ALT/SGPT 12 U/L (12-78); AST/SGOT 18 U/L (15-37); Albumin 2.2 g/dL (3.4-5.0); Alkaline Phosphatase 83 U/L (45-117); BUN Blood Urea Nitrogen 5 mg/dL (7-18); Bicarbonate 26 mmol/L (21-32); Bilirubin Total 0.4 mg/dL (0.2-1.0); Glucose Level 91 mg/dL (74-106); Magnesium 2.1 mg/dL (1.8-2.4); Phosphorus 2.1 mg/dL (2.5-4.9); Potassium 4.1 mmol/L (3.5-5.1); Protein, Total 5.9 g/dL (6.4-8.2); Sodium Level 142 mmol/L (136-145)
[2018-07-07] MEDS: POTASS/SODIUM PHOSPHATE 1 PKT POWD.PACK PO SCH ×2 (06:44→09:54)
[2018-07-07 09:32] LABS: Absolute Monocytes 0.3 K/uL (0.1-1.3); Absolute Neutrophil 2.9 K/uL (1.8-8.0); Basophils % 1.1 % (0-1.3); Eosinophils % 5.7 % (0-4.4); Hematocrit 28.1 % (36.0-45.0); Lymphocytes % 21.8 % (15.3-44.8); MCV 68.7 fL (80-100); MPV 8.2 fL (7.6-11.3); Monocytes % 7.2 % (3.3-12.3); RBC Red Blood Cell Count 4.09 M/uL (3.86-4.86)
[2018-07-07] MEDS: ENOXAPARIN 40 MG/0.4 ML SQ SCH (09:54)
[2018-07-07] MEDS ORDERED: VANCOMYCIN 1.25 GM in NA CHLORIDE 0.9% 250 ML IVPB SCH (10:00)
[2018-07-07] MEDS ORDERED: VANCOMYCIN 1.5 GM in NA CHLORIDE 0.9% 500 ML IVPB SCH (10:00)
[2018-07-07 10:06] LABS: BUN Blood Urea Nitrogen 5 mg/dL (7-18); Bicarbonate 26 mmol/L (21-32); Folic Acid, (Folate) 11.2 ng/mL (3.1-17.5); Glucose Level 82 mg/dL (74-106); Potassium 4.3 mmol/L (3.5-5.1); Sodium Level 142 mmol/L (136-145); Transferrin 219 mg/dL (200-360)
--- NOTE | 2018-07-07 13:58 | P.DS ---
Admission Date: 07/04/18 Discharge Date: 07/07/18 Disposition: TRANSFER TO SHELTER Discharge Condition: GOOD Reason for Admission: complicated UTI Consultations: Dr. 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 She has had some nausea but no abdominal pain. her mother who is her caregiver denied any strong odor or change in color of urine. She has no focal neurologic symptoms. Lab work shows normal WBC count, lactate normal as well. Procalcitonin pending, UA abnormal consitent with UTI. She was febrile at arrival 100.4 F, BP, within normal limits initially, however, during her stay in ER, the lowest was 79/60's. CT abd/pelvis shows nor acute abnormalities. Hospital Course: Patient was admitted with sepsis as she was tachycardic, elevated pro calcitonin , fever on admission. She is bacteremic and she had an urinary tract infection. She was started on IV antibiotics, was switched over to IV meropenem once cultures came back. She was also started on vancomycin for her suspected skin infection on her bilateral lower extremities, likely overlying chronic lymphedema. Prior to discharge, patient was afebrile for more than 24 hr, her cultures had returned with sensitivities. A PICC line was placed for 2 weeks of IV antibiotics for extended spectrum beta lactamase E. coli in her urine as well as her blood. She was then transferred to [place] for long-term IV antibiotics and wound care. Infectious disease was consulted throughout this hospitalization, recommendations for starting vancomycin were followed. Otherwise, patient remained stable throughout the stay. Vital Signs/Physical Exam: Temp Pulse Resp BP Pulse Ox 97.3 F 83 16 146/80 H 98 07/07/18 12:00 07/07/18 12:00 07/07/18 12:00 07/07/18 12:00 07/07/18 12:00 General: Alert, In no apparent distress, Oriented x3 HEENT: Atraumatic, PERRLA, EOMI Neck: Supple, JVD not distended Respiratory: Clear to auscultation bilaterally, Normal air movement Cardiovascular: Regular rate/rhythm, Normal S1 S2, Edema (Bilateral lower extremities) Gastrointestinal: Normal bowel sounds, No tenderness Musculoskeletal: No tenderness Integumentary: No rashes Neurological: Other (Lower extremity paraplegia) Lymphatics: No axilla or inguinal lymphadenopathy Laboratory Data at Discharge: WBC 4.5 K/uL (4.3-10.9) 07/07/18 09:06 Hgb 8.6 g/dL (12.0-15.0) L 07/07/18 09:06 Hct 28.1 % (36.0-45.0) L 07/07/18 09:06 Plt Count 169 K/uL (152-406) 07/07/18 09:06 Sodium 142 mmol/L (136-145) 07/07/18 09:06 Potassium 4.3 mmol/L (3.5-5.1) 07/07/18 09:06 BUN 5 mg/dL (7-18) L 07/07/18 09:06 Creatinine 0.20 mg/dL (0.55-1.3) L 07/07/18 09:06 Glucose 82 mg/dL (74-106) 07/07/18 09:06 Phosphorus 2.1 mg/dL (2.5-4.9) L 07/07/18 04:30 Magnesium 2.1 mg/dL (1.8-2.4) D 07/07/18 04:30 Total Bilirubin 0.4 mg/dL (0.2-1.0) 07/07/18 04:30 AST 18 U/L (15-37) 07/07/18 04:30 ALT 12 U/L (12-78) 07/07/18 04:30 Alkaline Phosphatase 83 U/L (45-117) 07/07/18 04:30 Lipase 55 U/L (73-393) L 07/04/18 16:15 Home Medications: Meropenem [Merrem 1 GM/100 ML NS IVPB] 1 gm IV Q8H 14 Days bag 07/07/18 Vancomycin/0.9 % Sod Chloride [Vanco 1.25 gm/250 ml-0.9% NaCl] 1.25 gm IV Q12H 14 Days plast..bag 07/07/18 New Medications: Meropenem [Merrem 1 GM/100 ML NS IVPB] 1 gm IV Q8H 14 Days bag Vancomycin/0.9 % Sod Chloride [Vanco 1.25 gm/250 ml-0.9% NaCl] 1.25 gm IV Q12H 14 Days plast..bag Diet: Renal Activity: Ad radha Physician Review: Patient Assessed, Agree with Above Assessment and Plan Time spent managing pt's care (in minutes): 55
== END 2018-07-07 12:55 | DRG 872 ==
LOC: ER 14:26 → ERHOLD 20:45 → 2ND 23:14
PROVIDERS: ADMIT Internal Medicine; ATTEND Family Medicine
PROC: 02HV33Z Insertion of Infusion Device into Superior Vena Cava, Percutaneous Approach (ICD-10-PCS; principal; 2018-07-06)
PROC: B548ZZA Ultrasonography of Superior Vena Cava, Guidance (ICD-10-PCS; 2018-07-06)
DX: A41.9 Sepsis, unspecified organism (principal); N30.00 Acute cystitis without hematuria; Z68.43 Body mass index [BMI] 50.0-59.9, adult; L03.116 Cellulitis of left lower limb; L03.115 Cellulitis of right lower limb; L97.929 Non-pressure chronic ulcer of unspecified part of left lower leg with unspecified severity; L97.919 Non-pressure chronic ulcer of unspecified part of right lower leg with unspecified severity; Z88.1 Allergy status to other antibiotic agents; N31.9 Neuromuscular dysfunction of bladder, unspecified; Q05.9 Spina bifida, unspecified; I95.9 Hypotension, unspecified; E66.01 Morbid (severe) obesity due to excess calories; I89.0 Lymphedema, not elsewhere classified; B96.20 Unspecified Escherichia coli [E. coli] as the cause of diseases classified elsewhere; Z16.12 Extended spectrum beta lactamase (ESBL) resistance; E83.39 Other disorders of phosphorus metabolism; E83.42 Hypomagnesemia; I87.2 Venous insufficiency (chronic) (peripheral)
CPT/HCPCS: 36415; 51702; 71045; 74177; 80048; 80053; 80076; 81003; 81015; 82607; 82728; 82746; 83540; 83605; 83690; 83735; 84100; 84145; 84466; 85025; 85044; 86850; 86900; 86901; 87040; 87077; 87086; 87088; 87186; 87205; 87804; 96361; 96365; 96375; 99285; J0696; J1650; J2270; J2405; J3475; J7030; Q9967

== ENCOUNTER 2018-09-25 17:40 | Emergency (ER) | payer OTHER ==
--- OUTSIDE RECORDS SUMMARY | 2018-09-25 17:43 | XMS REPORT | Continuity of Care Document ---
:1975 Author Organization Interface Problems Problem Status Onset Classification Date Comments Source Date Reported ACUTE HEADACHE, Active 03/15/20 [facility] PRESENCE OF [address] [place] [address] VENTRICULAR Center HANSEN WITH POSSIBLE Active 03/15/20 [facility] STATISTICIAN APPLIED SHUNT 17 Medical MALFUNCTION Center Spina bifida Resolved Problem 03/22/2017 [facility] Urinary tract Resolved Problem 03/22/2017 [facility] infection Medical Center HEADACHE Active [facility] PRESENCE OF Active [facility] CEREBROSPINAL Medical FLUID DRAINAGE Center Medications Medication Details Route Status Patient Ordering Order Source Instructions Provider Date heparin sodium, 5,000 unit, 1 No Longer [facility] porcine 2500 mL, Route: Active 017 Medical UNT/ML SUB-Q, Drug Center Injectable form: INJ, Solution Q8H, Dosing Weight 77.409, kg, Start date: 03/18/17 16:00:00 CDT, Duration: 30 day, Stop date: 04/17/17 8:00:00 CDTNotes: porcine heparin Ondansetron 4 4 mg=1 tab, Active [facility] MG Oral Tablet PO, Q8H, PRN 017 Medical [Zofran] Nausea/vomitin Center g, # 42 tab, 0 Refill(s) Acetaminophen 1 tab, PO, Active [facility] 300 MG / Q4H, PRN Pain, 017 Medical Codeine X 10 day, # 60 [place] Phosphate 30 MG tab, 0 Oral Tablet Refill(s) [Tylenol with Codeine #3] Menthol 0.0044 1 appl, Route: No Longer [facility] MG/MG / Zinc TOP, BID, Drug Active 017 Medical Oxide 0.2 MG/MG form: OINT, [place] Topical Start date: Ointment 03/16/17 [Calmoseptine 9:00:00 CDT, Ointment] Duration: 30 day, Stop date: 04/14/17 17:00:00 CDTNotes: (Same as: Calmoseptine) Labetalol 20 mg, 4 mL, No Longer [facility] Route: IVP, Active 017 Medical Drug form: [place] INJ, Q15Min, Dosing Weight 77.273, kg, PRN Hypertension, Start date: 03/15/17 21:01:00 CDT, Duration: 3 doses or times, Stop date: 03/17/17 1:00:00 CDT Hydralazine 20 mg, 1 mL, No Longer [facility] Route: IVP, Active 017 Medical Drug form: [place] INJ, Q4H, Dosing Weight 77.273, kg, PRN Hypertension, Start date: 03/15/17 21:01:00 CDT, Duration: 30 day, Stop date: 04/14/17 21:00:00 CDTNotes: (Same as: Apresoline) Push over 5 minutes Saline Flush 10 ml, Route: No Longer [facility] 0.9% IVP, Drug Active 017 Medical Form: INJ, [place] Dosing Weight 77.273, kg, Q12H, Start date: 03/15/17 21:00:00 CDT, Duration: 30 day, Stop date: 04/14/17 9:00:00 CDTNotes: (Same as: BD Posiflush) sennosides, LONG-TERM 8.6 mg, 1 tab, No Longer [facility] Route: PO, Active 017 Medical Drug Form: [place] TAB, Dosing Weight 77.273, kg, Q12H, Start date: 03/15/17 21:00:00 CDT, Duration: 30 day, Stop date: 04/14/17 9:00:00 CDTNotes: (Same as: Senokot) Docusate 100 mg, 1 cap, No Longer [facility] Route: PO, Active 017 Medical Drug form: [place] CAP, Q12H, Dosing Weight 77.273, kg, Start date: 03/15/17 21:00:00 CDT, Duration: 30 day, Stop date: 04/14/17 9:00:00 CDTNotes: (Same as: Colace) (Do Not Crush) Regular 7 unit, 0.07 No Longer [facility] Insulin, Human mL, Route: Active 017 Medical 100 UNT/ML SUB-Q, Drug [place] Injectable form: SOLN, Solution PRN, Dosing Weight [...] Dextrose 50% 12.5 gm, 25 No Longer [facility] Syringe mL, Route: Active 017 Medical IVP, Drug Center Form: INJ, Dosing Weight 77.273, kg, PRN, PRN Abnormal Lab Result, Start date: 03/15/17 19:56:00 CDT, Duration: 30 day, Stop date: 04/14/17 19:55:00 CDT Saline Flush 10 ml, Route: No Longer [facility] 0.9% IVP, Drug Active 017 Medical Form: INJ, Center Dosing Weight 77.273, kg, PRN, PRN Line Flush, Start date: 03/15/17 19:56:00 CDT, Duration: 30 day, Stop date: 04/14/17 19:55:00 CDTNotes: (Same as: BD Posiflush) Bisacodyl 10 mg, 1 supp, No Longer [facility] Route: HI, Active 017 Medical Drug form: Center SUPP, Daily, Dosing Weight 77.273, kg, PRN Constipation, Start date: 03/15/17 19:56:00 CDT, Duration: 30 day, Stop date: 04/14/17 19:55:00 CDTNotes: (Same As: Dulcolax, [place]-Lax) Acetaminophen 650 mg, 2 tab, No Longer [facility] Route: PO, Active 017 Medical Drug form: Center TAB, Q4H, Dosing Weight 77.273, kg, PRN Pain 1-3/Temp > 99.5 F, Start date: 03/15/17 19:56:00 CDT, Duration: 30 day, Stop date: 04/14/17 19:55:00 CDTNotes: Do not exceed 4 gm/day. (Same as: Tylenol) Morphine 1 mg, 0.25 mL, No Longer [facility] Route: IVP, Active 017 Medical Drug form: Center INJ, Q1H, Dosing Weight 77.273, kg, PRN Pain Score 7-10, Start date: 03/15/17 19:56:00 CDT, Stop date: 04/14/17 19:55:00 CDTNotes: (Same as:MORPhine Sulfate) Acetaminophen 2 tab, Route: No Longer [facility] 325 MG / PO, Drug Form: Active 017 Medical Hydrocodone TAB, Dosing Center Bitartrate 5 MG Weight 77.273, Oral Tablet kg, Q4H, PRN Pain Score 4-6, Start date: 03/15/17 19:56:00 CDT, Duration: 30 day, Stop date: 04/14/17 19:55:00 CDTNotes: (Same as: [place] 325/5) Do not exceed 4gm/day of acetaminophen. sodium chloride 1,000 mL, No Longer [facility] 0.9% 1000 ml Rate: 50 Active 017 Medical INJ 1,000 mL ml/hr, Infuse Center over: 20 hr, Route: IV, Dosing Weight 77.273 kg, Total Volume: 1,000, Start date: 03/15/17 19:56:00 CDT, Duration: 30 day, Stop date: 04/14/17 19:55:00 CDT Fentanyl 50 microgram, Inactive [facility] 1 mL, Route: 017 Medical IVP, Drug Center form: INJ, ONCE, Dosing Weight 77.273, kg, Priority: STAT, Start date: 03/15/17 18:48:00 CDT, Stop date: 03/15/17 18:48:00 CDTNotes: (Same as: Sublimaze) Preservative free. Tylenol 650 mg, 2 tab, Inactive [facility] Route: PO, 017 Medical Drug form: Center TAB, ONCE, Dosing Weight 77.273, kg, Priority: STAT, Start date: 03/15/17 18:23:00 CDT, Stop date: 03/15/17 18:23:00 CDTNotes: Do not exceed 4 gm/day. (Same as: Tylenol) NS (Bolus) IV 1,000 mL, Inactive [facility] 1,000 ml/hr, 017 Medical Infuse Over: 1 Center hr, Route: IV, 1,000, Drug form: INJ, ONCE, Priority: STAT, Dosing Weight 77.273 kg, Start date: 03/15/17 18:23:00 CDT, Duration: 1 doses or times, Stop date: 03/15/17 18:23:00 CDT Reglan 10 mg, 2 mL, Inactive [facility] Route: IVP, 017 Medical Drug form: Center INJ, ONCE, Dosing Weight 77.273, kg, Priority: STAT, Start date: 03/15/17 18:23:00 CDT, Stop date: 03/15/17 18:23:00 CDTNotes: (Same as: Reglan) Allergies, Adverse Reactions, Alerts Substance Category Reaction Severity Reaction Status Date Comments Source type Reported clindamycin Assertion Drug Active [facility] Immunizations Immunization Date Given Site Status Last Updated Comments Source Results Order Name Results Value Reference Date Interpretation Comments Source Range BODY FLUIDS WBC CSF 3 /mm3 0 - 53 03/16 [facility] [address] [place] [address] BODY FLUIDS RBC CSF 4450 /mm3 0 - 03 03/16 [facility] BODY FLUIDS Supernat CSF Colorless Colorless 03/16 [facility] (03/15/17 8:17 PM) [place] BODY FLUIDS Clarity CSF Slight Clear 03/16 [facility] *ABN* [place] (03/15/17 8:17 PM) BODY FLUIDS Color CSF Colorless Colorless 03/16 [facility] (03/15/17 8:17 PM) [place] BODY FLUIDS Comment CSF Differentia 03/16 [facility] l [facility] performed Center on WBC count of less than 5. BODY FLUIDS Tube Num CSF 1 03/16 [facility] ELECTROLYTE AGAP 10.1 meq/L 10.0 - 03/15 [facility] S 20.0 [facility] ELECTROLYTE eGFR 129 03/15 Result Comment: The eGFR is calculated using the CKD-EPI formula. In most young, healthy individuals the eGFR will be > 90 mL/min/1.73m2. The eGFR declines with age. An eGFR of 60-89 may be normal in [facility] mL/min/1.73 /2016 some populations, particularly the elderly, for whom the CKD-EPI formula has not been extensively validated. Use of the eGFR is not recommended in the following populations: [place] [address] Center Individuals with unstable creatinine concentrations, including [...] CO2 24 meq/L 24 - 32 03/15 [facility] [address] [place] [address] ELECTROLYTE Calcium Lvl 8.2 mg/dL 8.5 - 10.5 03/15 [facility]2016 [facility] ELECTROLYTE Creatinine 0.42 mg/dL 0.50 - 03/15 [facility] Lvl 1.40 [facility] ELECTROLYTE Sodium Lvl 140 meq/L 135 - 145 03/[address] ELECTROLYTE Potassium 4.1 meq/L 3.5 - 5.1 03/15 [facility] ELECTROLYTE BUN 11 mg/dL 7 - 22 03/[address] ELECTROLYTE Chloride Lvl 110 meq/L 95 - 109 03/[address] ELECTROLYTE Glucose Lvl 90 mg/dL 70 - 99 03/[address] HEMATOLOGY Microcyte 2+ None Seen 03/15 [facility] Center (03/15/17 6:55 PM) HEMATOLOGY Eosinophils 0.1 K/CMM 0.0 - 0.5 03/15 [facility] HEMATOLOGY Eosinophils 1.9 % 0.0 - 4.0 03/15 [facility]2016 [facility] HEMATOLOGY Monocytes 6.3 % 2.0 - 12.0 03/[address] HEMATOLOGY Lymphocytes 28.3 % 20.0 - 03/15 [facility] 40.0 [facility] HEMATOLOGY Segs-Bands # 3.7 K/CMM 1.5 - 8.1 03/[address] HEMATOLOGY Basophils 0.4 % 0.0 - 1.0 03/[address] HEMATOLOGY Lymphocytes 1.6 K/CMM 1.0 - 5.5 03/15 [facility]2016 [facility] HEMATOLOGY Monocytes # 0.4 K/CMM 0.0 - 0.8 03/15 [facility] HEMATOLOGY Plt Morph Normal 03/15 Medical (03/15/17 6:55 PM) [place] HEMATOLOGY Segs 63.1 % 45.0 - 03/15 75.0 /2016 [facility] HEMATOLOGY MPV 7.6 fL 7.4 - 10.4 03/15 [facility] HEMATOLOGY MCH 20.2 pg 27.0 - 03/15 [place] 31.0 [facility] HEMATOLOGY MCHC 29.3 g/dL 32.0 - 03/15 Result 36.0 Comment: Medical rechecked [place] HEMATOLOGY RDW 18.6 % 11.5 - 03/15 14. [facility] HEMATOLOGY Platelet 199 K/CMM 133 - 450 03/15 [facility] HEMATOLOGY MCV 69.0 fL 80.0 - 03/15 98.0 [facility] HEMATOLOGY RBC 4.28 M/CMM 4.20 - 03/15 [place] 5.40 [facility] HEMATOLOGY Hgb 8.7 g/dL 12.0 - 03/15 16.0 [facility] HEMATOLOGY Hct 29.5 % 36.0 - 03/15 48.0 /2016 [facility] HEMATOLOGY WBC 5.8 K/CMM 3.7 - 10.4 03/15 [facility] HEMATOLOGY PT 12.9 s 12.0 - 03/15 14.7 [facility] HEMATOLOGY PTT 28.1 s 22.9 - 03/15 [place] 35.8 [facility] HEMATOLOGY INR 0.95 0.85 - 03/15 [place] 1. [facility] BLOOD BANK ABO/Rh O POS 03/15 RESULTS [facility] BLOOD BANK Antibody Negative 03/15 [facility] RESULTS [facility] (03/15/17 6:48 PM) [place] Brain wo Brain wo EXAM: CT BRAIN WITHOUT CONTRAST 03/15 - [facility] contrast CT contrast CT /2016 - [facility] This report was dictated by a Hydro Operator/Fellow. I have personally reviewed the images as Center well as the Resident's interpretation and agree with the findings. DATE: 03/15/2017 Read by: Geo Christopher MD Resident: Geo Christopher MD Dictated Date/time: 03/15/17 21:44 Electronically Signed by: Ulises Darling MD 03/15/17 22:50 FINAL REPORT INDICATION: STEALTH PROTOCOL COMPARISON: Brain CT performed earlier of the same date at [facility] at 1253 hours TECHNIQUE: Multiple [...] EXAM: XR CHEST 1 VIEW 03/15 - [facility] DX /2016 - Medical This report was dictated by a Hydro Operator/Fellow. I have personally reviewed the images [...] Comments Source Systolic (mm Hg) 123 03/19/2017 [facility] Diastolic (mm Hg) 85 03/19/2017 [facility] Respitory Rate 18 03/19/2017 [facility] Heart Rate 84 03/19/2017 [facility] Temperature Oral (F) 97.7 F 03/19/2017 [facility] Temperature Oral (F) 97.8 F 03/19/2017 [facility] Heart Rate 70 03/19/2017 [facility] Systolic (mm Hg) 124 03/19/2017 [facility] Diastolic (mm Hg) 86 03/19/2017 [facility] Respitory Rate 18 03/19/2017 [facility] Heart Rate 69 03/19/2017 [facility] Temperature Oral (F) 97.1 F 03/19/2017 [facility] Systolic (mm Hg) 116 03/19/2017 [facility] Diastolic (mm Hg) 73 03/19/2017 [facility] Respitory Rate 18 03/19/2017 [facility] Weight 77.409 03/16/2017 [facility] BMI Calculated 49.88 03/16/2017 [facility] Weight 77.273 03/16/2017 [facility] Height 124.46 cm 03/16/2017 [facility] Weight 77.273 03/15/2017 [facility] BMI Calculated 49.88 03/15/2017 [facility] Height 124.46 cm 03/15/2017 [facility] Encounters Location Location Encounter Encounter Reason Attending ADM DC Status Source Details Type Number For Provider Date Date Visit [facility] [id number] [place] 03/15 03/19 [facility] Naveed Lares /2016 [facility] Procedures Procedure Code Date Perfomer Comments Source Cholecystectomy [id number] [facility] Creation of STATISTICIAN APPLIED shunt [id number] [facility]
[2018-09-25] MEDS ORDERED: ONDANSETRON 4 MG (ODT) TAB ONE (20:58)
[2018-09-25 22:25] LABS: Absolute Lymphocytes (CBC) 1.8 K/uL (0.7-4.9); Absolute Monocytes 0.4 K/uL (0.1-1.3); Basophils % 1.1 % (0-1.3); Eosinophils % 1.8 % (0-4.4); Hematocrit 33.4 % (36.0-45.0); Lymphocytes % 23.8 % (15.3-44.8); MPV 7.8 fL (7.6-11.3); Monocytes % 5.5 % (3.3-12.3); RBC Red Blood Cell Count 4.45 M/uL (3.86-4.86)
[2018-09-25 22:41] LABS: ALT/SGPT 19 U/L (12-78); AST/SGOT 18 U/L (15-37); Alkaline Phosphatase 101 U/L (45-117); BUN Blood Urea Nitrogen 14 mg/dL (7-18); Bicarbonate 26 mmol/L (21-32); Bilirubin Direct 0.2 mg/dL (0-0.2); Bilirubin Total 0.6 mg/dL (0.2-1.0); Glucose Level 87 mg/dL (74-106); Lipase 63 U/L (73-393); Potassium 3.7 mmol/L (3.5-5.1); Protein, Total 7.3 g/dL (6.4-8.2); Sodium Level 140 mmol/L (136-145)
[2018-09-26 00:05] LABS: Urine Bacteria <20 /HPF (<20); Urine Culture Reflex Order REFLEXED; Urine RBC <5 /HPF (NONE SEEN); Urine Yeast FEW (NONE SEEN)
[2018-09-26 00:21] LABS: Urine Blood TRACE (NEG); Urine Glucose NEGATIVE (NEG); Urine Protein 1+ (NEG); Urine Specific Gravity 1.015 (1.005-1.030); Urine pH 6.5 (5.0-7.0)
--- NOTE | 2018-09-26 01:59 | EDPHYS ---
Physician Documentation [facility] Name: Luz Elena Pacheco Age: 43 yrs Sex: Female : 1975 Arrival Date: 09/25/2018 Time: 17:42 Bed 15 Private MD: Monse Garcia R ED Physician Vince Kent HPI: 09/26 04:30 This 43 yrs old Female presents to ER via Wheelchair with complaints of gs Vomiting. 04:30 The patient presents to the emergency department with vomiting, that is intermittent. gs Onset: The symptoms/episode began/occurred 2 day(s) ago, and became persistent. Possible causes: unknown. The symptoms are aggravated by food , The symptoms are alleviated by nothing. Associated signs and symptoms: Pertinent negatives: abdominal pain, dysuria, fever. Severity of symptoms: At their worst the symptoms were moderate in the emergency department the symptoms are unchanged. The patient has experienced similar episodes in the past, a few times. The patient has not recently seen a physician. Historical: - Allergies: 09/25 17:49 Clindamycin; sv - PMHx: 17:49 spina bifida; sv - Social history:: The patient lives at home. ROS: 09/26 04:30 All other systems are negative. gs Exam: 04:30 Head/Face: Normocephalic, atraumatic. Eyes: Pupils equal round and reactive to light, gs extra-ocular motions intact. Lids and lashes normal. Conjunctiva and sclera are non-icteric and not injected. Cornea within normal limits. Periorbital areas with no swelling, redness, or edema. ENT: Nares patent. No nasal discharge, no septal abnormalities noted. Tympanic membranes are normal and external auditory canals are clear. Oropharynx with no redness, swelling, or masses, exudates, or evidence of obstruction, uvula midline. Mucous membranes moist. Neck: Trachea midline, no thyromegaly or masses palpated, and no cervical lymphadenopathy. Supple, full range of motion without nuchal rigidity, or vertebral point tenderness. No Meningismus. Chest/axilla: Normal chest wall appearance and motion. Nontender with no deformity. No lesions are appreciated. Cardiovascular: Regular rate and rhythm with a normal S1 and S2. No gallops, murmurs, or rubs. Normal PMI, no JVD. No pulse deficits. Respiratory: Lungs have equal breath sounds bilaterally, clear to auscultation and percussion. No rales, rhonchi or wheezes noted. No increased work of breathing, no retractions or nasal flaring. Abdomen/GI: Soft, non-tender, with normal bowel sounds. No distension or tympany. No guarding or rebound. No evidence of tenderness throughout. Back: No spinal tenderness. No costovertebral tenderness. Full range of motion. 04:30 Constitutional: The patient appears alert, awake. 04:30 Musculoskeletal/extremity: Exam is negative for acute changes. 04:30 Skin: lesion(s), fibromas anterior legs chronic. 04:30 Neuro: Exam negative for acute changes, focal neuro deficits, Cranial nerves: grossly normal. Vital Signs: 09/25 17:49 BP 137 / 82; Pulse 86; Resp 18; Temp 98.4; Pulse Ox 100% ; Weight 90.72 kg; sv 21:15 BP 128 / 77; Pulse 60; Resp 18; Pulse Ox 100% on R/A; jb4 23:25 BP 135 / 97; Pulse 71; Resp 18; Pulse Ox 100% on R/A; jb4 09/26 00:30 BP 145 / 88; Pulse 73; Resp 18; Pulse Ox 100% on R/A; jb4 01:15 BP 132 / 87; Pulse 73; Resp 16; Pulse Ox 100% on R/A; jb4 01:45 BP 145 / 87; Pulse 82; Resp 18; Pulse Ox 100% on R/A; jb4 MDM: 09/25 19:31 Patient medically screened. 09/26 04:30 Differential diagnosis: Nonspecific abd pain, gastritis, viral gastroenteritis, gs gastroenteritis. Data reviewed: vital signs, nurses notes. Counseling: I had a detailed discussion with the patient and/or guardian regarding: the historical points, exam findings, and any diagnostic results supporting the discharge/admit diagnosis, the need for outpatient follow up. Response to treatment: the patient's symptoms have markedly improved after treatment, the patient's condition has returned to base line, patient is well hydrated. and as a result, I will discharge patient. 09/25 19:31 Order name: Basic Metabolic Panel; Complete Time: 23:42 09/25 19:31 Order name: CBC with Diff; Complete Time: 23:42 09/25 19:31 Order name: Hepatic Function; Complete Time: 23:42 09/25 19:31 Order name: Lipase; Complete Time: 23:42 09/25 19:31 Order name: Urine Microscopic Only; Complete Time: 00:24 09/25 23:09 Order name: Urine Dipstick--Ancillary (enter results); Complete Time: 00:24 [facility] 09/25 19:31 Order name: IV Saline Lock; Complete Time: 22:17 09/25 19:31 Order name: Labs collected and sent; Complete Time: 22:17 09/25 23:09 Order name: Urine --Ancillary (enter results); Complete Time: 00:24 [facility] 09/26 00:15 Order name: Urine Culture [facility] 09/26 00:25 Order name: Strep; Complete Time: 01:50 09/26 01:43 Order name: Throat Culture [facility] 09/25 19:31 Order name: Urine Test (obtain specimen); Complete Time: 23:23 09/25 19:31 Order name: Urine Dipstick-Ancillary (obtain specimen); Complete Time: 23:23 Administered Medications: 09/25 20:45 Drug: Zofran 4 mg Route: PO; 4 21:23 Follow up: Response: No adverse reaction; Nausea is decreased jb4 21:22 Not Given (Other Intervention Used): Zofran 4 mg IVP once; over 2 minutes jb4 Disposition: 09/26/18 01:58 Discharged to Home. Impression: Vomiting. - Condition is Stable. - Discharge Instructions: Nausea and Vomiting, Adult. - Prescriptions for Zofran 4 mg Oral Tablet - take 1 tablet by ORAL route every 12 hours As needed; 6 tablet. - Medication Reconciliation Form, Thank You Letter, Antibiotic Education, Prescription Opioid Use, Work release form form. - Follow up: Private Physician; When: 2 - 3 days; Reason: Re-evaluation by your physician. Signatures: Dispatcher [employer] Margie Eldridge RN RN sv Bryson, James, RN RN jb4 Vince Kent MD MD Corrections: (The following items were deleted from the chart) 09/26 02:25 01:58 09/26/2018 01:58 Discharged to Home. Impression: Vomiting. Condition is Stable. jb4 Forms are Work release form, Medication Reconciliation Form, Thank You Letter, Antibiotic Education, Prescription Opioid Use. Follow up: Private Physician; When: 2 - 3 days; Reason: Re-evaluation by your physician. gs
--- NOTE | 2018-09-26 01:59 | ER ---
Nurse's Notes [facility] Name: Luz Elena Pacheco Age: 43 yrs Sex: Female : 1975 Arrival Date: 09/25/2018 Time: 17:42 Bed 15 Private MD: Monse Garcia R Diagnosis: Vomiting Presentation: 09/25 17:46 Presenting complaint: Patient states: n/v for the last couple of weeks. Transition of sv care: patient was not received from another setting of care. Onset of symptoms is unknown. Care prior to arrival: None. 17:46 Method Of Arrival: Wheelchair sv 17:46 Acuity: ANASTASIIA 3 sv Historical: - Allergies: 17:49 Clindamycin; sv - PMHx: 17:49 spina bifida; sv - Social history:: The patient lives at home. Screenin:20 Abuse screen: Denies threats or abuse. Nutritional screening: No deficits noted. jb4 Tuberculosis screening: No symptoms or risk factors identified. Fall Risk None identified. Gait- Normal/Bed Rest/Wheelchair (0 pts). Assessment: 19:20 General: Appears uncomfortable, obese, Behavior is calm, cooperative, appropriate for jb4 age. Pain: Complains of pain in abdomen Pain does not radiate. Pain currently is 8 out of 10 on a pain scale. Quality of pain is described as burning. Neuro: Level of Consciousness is awake, alert, obeys commands, Oriented to person, place, time, situation. Cardiovascular: Heart tones S1 S2 present Patient's skin is warm and dry. Respiratory: Airway is patent Respiratory effort is even, unlabored, Respiratory pattern is regular, symmetrical, Breath sounds are clear bilaterally. GI: Abdomen is distended, obese, Bowel sounds present X 4 quads. Abd is non tender in left upper quadrant, right lower quadrant and left lower quadrant Abdomen is tender to palpation in right upper quadrant Abd is rigid X 4 quads. : No signs and/or symptoms were reported regarding the genitourinary system. EENT: No signs and/or symptoms were reported regarding the EENT system. Derm: Skin Soars noted to both legs. Skin is pink, warm \T\ dry. Bed sore noted to the right inner thigh. Musculoskeletal: Range of motion: Pt is paralyzed from the waist down. 20:20 Reassessment: No changes from previously documented assessment. Patient and/or family jb4 updated on plan of care and expected duration. Pain level reassessed. Patient is alert, oriented x 3, equal unlabored respirations, skin warm/dry/pink. 21:20 Reassessment: No changes from previously documented assessment. Patient and/or family jb4 updated on plan of care and expected duration. Pain level reassessed. Patient is alert, oriented x 3, equal unlabored respirations, skin warm/dry/pink. Nausea decreased. family at the bedside. Patient states feeling better. 22:20 Reassessment: No changes from previously documented assessment. Patient and/or family jb4 updated on plan of care and expected duration. Pain level reassessed. Patient is alert, oriented x 3, equal unlabored respirations, skin warm/dry/pink. 23:20 Reassessment: No changes from previously documented assessment. Patient and/or family jb4 updated on plan of care and expected duration. Pain level reassessed. Patient is alert, oriented x 3, equal unlabored respirations, skin warm/dry/pink. Patient states feeling better. 09/26 00:20 Reassessment: No changes from previously documented assessment. Patient and/or family jb4 updated on plan of care and expected duration. Pain level reassessed. Patient is alert, oriented x 3, equal unlabored respirations, skin warm/dry/pink. 01:20 Reassessment: No changes from previously documented assessment. Patient and/or family jb4 updated on plan of care and expected duration. Pain level reassessed. Patient is alert, oriented x 3, equal unlabored respirations, skin warm/dry/pink. Patient states feeling better. 02:20 Reassessment: Patient and/or family updated on plan of care and expected duration. Pain jb4 level reassessed. Patient is alert, oriented x 3, equal unlabored respirations, skin warm/dry/pink. Patient states feeling better. Vital Signs: 09/25 17:49 BP 137 / 82; Pulse 86; Resp 18; Temp 98.4; Pulse Ox 100% ; Weight 90.72 kg; sv 21:15 BP 128 / 77; Pulse 60; Resp 18; Pulse Ox 100% on R/A; jb4 23:25 BP 135 / 97; Pulse 71; Resp 18; Pulse Ox 100% on R/A; jb4 09/26 00:30 BP 145 / 88; Pulse 73; Resp 18; Pulse Ox 100% on R/A; jb4 01:15 BP 132 / 87; Pulse 73; Resp 16; Pulse Ox 100% on R/A; jb4 01:45 BP 145 / 87; Pulse 82; Resp 18; Pulse Ox 100% on R/A; jb4 ED Course: 09/25 17:42 Patient arrived in ED. as 17:42 Monse Garcia MD is Private Physician. as 17:49 Triage completed. sv 17:49 Arm band placed on. sv 19:07 Vince Kent MD is Attending Physician. gs 19:13 Bennie Segovia, THOM is Primary Nurse. jb4 19:20 Patient has correct armband on for positive identification. Placed in gown. Bed in low jb4 position. Call light in reach. Side rails up X2. Pulse ox on. NIBP on. 22:16 Lab(s) recollected, by me, sent to lab. Missed attempt(s): 22 gauge in left antecubital bb area. Bleeding controlled, band aid applied, catheter tip intact. Inserted saline lock: 22 gauge in left ,using aseptic technique. anterior chest Blood collected. 23:08 Straight cath inserted, using sterile technique, 12 Fr. Specimen obtained. Patient ak1 tolerated well. 09/26 02:23 No provider procedures requiring assistance completed. IV discontinued, intact, jb4 bleeding controlled. Administered Medications: 09/25 20:45 Drug: Zofran 4 mg Route: PO; jb4 21:23 Follow up: Response: No adverse reaction; Nausea is decreased jb4 21:22 Not Given (Other Intervention Used): Zofran 4 mg IVP once; over 2 minutes jb4 Outcome: 09/26 01:58 Discharge ordered by . 02:23 Discharged to home via wheelchair, with family. jb4 02:23 Condition: stable 02:23 Discharge instructions given to patient, family, Instructed on discharge instructions, follow up and referral plans. medication usage, Demonstrated understanding of instructions, follow-up care, medications. 02:25 Patient left the ED. jb4 Addendum: 10/02/2018 11:44 Addendum: Culture Results: Positive urine culture. No antibiotic prescription needed a a5 due to no urinary complaints per LOCO Lopez. Signatures: Margie Morin, RN RN Modesta Christianson as Gunjan Nguyễn RN RN bb Nova Orr, RN RN aa5 Lexy Bowen RN RN ak1 Bennie Segovia RN RN jb4 Vince Kent MD MD gs Corrections: (The following items were deleted from the chart) 09/25 23:26 19:20 GI: Abdomen is distended, obese, Bowel sounds present X 4 quads. Abd is soft in jb4 left upper quadrant, right lower quadrant and left lower quadrant Abd is non tender in left upper quadrant, right lower quadrant and left lower quadrant Abdomen is tender to palpation in right upper quadrant Abd is rigid in right upper quadrant jb4 23:26 19:20 Derm: Skin Soars noted to both legs. Skin is pink, warm \T\ dry. jb4 jb4
== END 2018-09-26 02:25 | disposition home or self-care (01) ==
LOC: ER 17:40
DX: R11.10 Vomiting, unspecified (principal); Z88.3 Allergy status to other anti-infective agents
CPT/HCPCS: 36415; 51702; 80048; 80076; 81003; 81015; 81025; 83690; 85025; 87070; 87077; 87081; 87086; 87088; 87186; 99284

== ENCOUNTER 2018-10-28 13:45 | Inpatient (IN) | payer OTHER ==
--- OUTSIDE RECORDS SUMMARY | 2018-10-28 14:20 | XMS REPORT | Continuity of Care Document ---
:1975 Author Organization Interface Problems Problem Status Onset Classification Date Comments Source Date Reported ACUTE HEADACHE, Active 03/15/20 [facility] PRESENCE OF [address] [place] [address] VENTRICULAR Center HANSEN WITH POSSIBLE Active 03/15/20 [facility] PERFORMANCE TESTER SHUNT 17 Medical MALFUNCTION Center Spina bifida Resolved Problem 03/22/2017 [facility] Urinary tract Resolved Problem 03/22/2017 [facility] infection Medical Center HEADACHE Active [facility] PRESENCE OF Active [facility] CEREBROSPINAL Medical FLUID DRAINAGE Center Medications Medication Details Route Status Patient Ordering Order Source Instructions Provider Date heparin sodium, 5,000 unit, 1 No Longer [facility] porcine 2500 mL, Route: Active 017 Medical UNT/ML SUB-Q, Drug Center Injectable form: INJ, Solution Q8H, Dosing Weight 77.409, kg, Start date: 03/18/17 16:00:00 CDT, Duration: 30 day, Stop date: 04/17/17 8:00:00 CDTNotes: porcine heparin Ondansetron 4 4 mg=1 tab, Active [facility] MG Oral Tablet PO, Q8H, PRN 017 Medical [Zofran] Nausea/vomitin Center g, # 42 tab, 0 Refill(s) Acetaminophen 1 tab, PO, Active [facility] 300 MG / Q4H, PRN Pain, 017 Medical Codeine X 10 day, # 60 Centre Phosphate 30 MG tab, 0 Oral Tablet Refill(s) [Tylenol with Codeine #3] Menthol 0.0044 1 appl, Route: No Longer [facility] MG/MG / Zinc TOP, BID, Drug Active 017 Medical Oxide 0.2 MG/MG form: OINT, Centre Topical Start date: Ointment 03/16/17 [Calmoseptine 9:00:00 CDT, Ointment] Duration: 30 day, Stop date: 04/14/17 17:00:00 CDTNotes: (Same as: Calmoseptine) Labetalol 20 mg, 4 mL, No Longer [facility] Route: IVP, Active 017 Medical Drug form: Centre INJ, Q15Min, Dosing Weight 77.273, kg, PRN Hypertension, Start date: 03/15/17 21:01:00 CDT, Duration: 3 doses or times, Stop date: 03/17/17 1:00:00 CDT Hydralazine 20 mg, 1 mL, No Longer [facility] Route: IVP, Active 017 Medical Drug form: Centre INJ, Q4H, Dosing Weight 77.273, kg, PRN Hypertension, Start date: 03/15/17 21:01:00 CDT, Duration: 30 day, Stop date: 04/14/17 21:00:00 CDTNotes: (Same as: Apresoline) Push over 5 minutes Saline Flush 10 ml, Route: No Longer [facility] 0.9% IVP, Drug Active 017 Medical Form: INJ, Centre Dosing Weight 77.273, kg, Q12H, Start date: 03/15/17 21:00:00 CDT, Duration: 30 day, Stop date: 04/14/17 9:00:00 CDTNotes: (Same as: BD Posiflush) sennosides, SHELTER 8.6 mg, 1 tab, No Longer [facility] Route: PO, Active 017 Medical Drug Form: Centre TAB, Dosing Weight 77.273, kg, Q12H, Start date: 03/15/17 21:00:00 CDT, Duration: 30 day, Stop date: 04/14/17 9:00:00 CDTNotes: (Same as: Senokot) Docusate 100 mg, 1 cap, No Longer [facility] Route: PO, Active 017 Medical Drug form: Centre CAP, Q12H, Dosing Weight 77.273, kg, Start date: 03/15/17 21:00:00 CDT, Duration: 30 day, Stop date: 04/14/17 9:00:00 CDTNotes: (Same as: Colace) (Do Not Crush) Regular 7 unit, 0.07 No Longer [facility] Insulin, Human mL, Route: Active 017 Medical 100 UNT/ML SUB-Q, Drug Centre Injectable form: SOLN, Solution PRN, Dosing Weight [...] Dextrose 50% 12.5 gm, 25 No Longer [facility] Syringe mL, Route: Active 017 Medical IVP, Drug Center Form: INJ, Dosing Weight 77.273, kg, PRN, PRN Abnormal Lab Result, Start date: 03/15/17 19:56:00 CDT, Duration: 30 day, Stop date: 04/14/17 19:55:00 CDT Saline Flush 10 ml, Route: No Longer [facility] 0.9% IVP, Drug Active 017 Medical Form: INJ, Center Dosing Weight 77.273, kg, PRN, PRN Line Flush, Start date: 03/15/17 19:56:00 CDT, Duration: 30 day, Stop date: 04/14/17 19:55:00 CDTNotes: (Same as: BD Posiflush) Bisacodyl 10 mg, 1 supp, No Longer [facility] Route: LA, Active 017 Medical Drug form: Center SUPP, Daily, Dosing Weight 77.273, kg, PRN Constipation, Start date: 03/15/17 19:56:00 CDT, Duration: 30 day, Stop date: 04/14/17 19:55:00 CDTNotes: (Same As: Dulcolax, Bisco-Lax) Acetaminophen 650 mg, 2 tab, No Longer [facility] Route: PO, Active 017 Medical Drug form: Center TAB, Q4H, Dosing Weight 77.273, kg, PRN Pain 1-3/Temp > 99.5 F, Start date: 03/15/17 19:56:00 CDT, Duration: 30 day, Stop date: 04/14/17 19:55:00 CDTNotes: Do not exceed 4 gm/day. (Same as: Tylenol) Morphine 1 mg, 0.25 mL, No Longer [facility] Route: IVP, Active 017 Medical Drug form: Center INJ, Q1H, Dosing Weight 77.273, kg, PRN Pain Score 7-10, Start date: 03/15/17 19:56:00 CDT, Stop date: 04/14/17 19:55:00 CDTNotes: (Same as:MORPhine Sulfate) Acetaminophen 2 tab, Route: No Longer [facility] 325 MG / PO, Drug Form: Active 017 Medical Hydrocodone TAB, Dosing Center Bitartrate 5 MG Weight 77.273, Oral Tablet kg, Q4H, PRN Pain Score 4-6, Start date: 03/15/17 19:56:00 CDT, Duration: 30 day, Stop date: 04/14/17 19:55:00 CDTNotes: (Same as: [place] 325/5) Do not exceed 4gm/day of acetaminophen. sodium chloride 1,000 mL, No Longer [facility] 0.9% 1000 ml Rate: 50 Active 017 Medical INJ 1,000 mL ml/hr, Infuse Center over: 20 hr, Route: IV, Dosing Weight 77.273 kg, Total Volume: 1,000, Start date: 03/15/17 19:56:00 CDT, Duration: 30 day, Stop date: 04/14/17 19:55:00 CDT Fentanyl 50 microgram, Inactive [facility] 1 mL, Route: 017 Medical IVP, Drug Center form: INJ, ONCE, Dosing Weight 77.273, kg, Priority: STAT, Start date: 03/15/17 18:48:00 CDT, Stop date: 03/15/17 18:48:00 CDTNotes: (Same as: Sublimaze) Preservative free. Tylenol 650 mg, 2 tab, Inactive [facility] Route: PO, 017 Medical Drug form: Center TAB, ONCE, Dosing Weight 77.273, kg, Priority: STAT, Start date: 03/15/17 18:23:00 CDT, Stop date: 03/15/17 18:23:00 CDTNotes: Do not exceed 4 gm/day. (Same as: Tylenol) NS (Bolus) IV 1,000 mL, Inactive [facility] 1,000 ml/hr, 017 Medical Infuse Over: 1 Center hr, Route: IV, 1,000, Drug form: INJ, ONCE, Priority: STAT, Dosing Weight 77.273 kg, Start date: 03/15/17 18:23:00 CDT, Duration: 1 doses or times, Stop date: 03/15/17 18:23:00 CDT Reglan 10 mg, 2 mL, Inactive [facility] Route: IVP, 017 Medical Drug form: Center INJ, ONCE, Dosing Weight 77.273, kg, Priority: STAT, Start date: 03/15/17 18:23:00 CDT, Stop date: 03/15/17 18:23:00 CDTNotes: (Same as: Reglan) Allergies, Adverse Reactions, Alerts Substance Category Reaction Severity Reaction Status Date Comments Source type Reported clindamycin Assertion Drug Active [facility] Immunizations Immunization Date Given Site Status Last Updated Comments Source Results Order Name Results Value Reference Date Interpretation Comments Source Range BODY FLUIDS WBC CSF 3 /mm3 0 - 53 03/16 [facility] [address] [place] [address] BODY FLUIDS RBC CSF 4450 /mm3 0 - 03 03/16 [facility] BODY FLUIDS Supernat CSF Colorless Colorless 03/16 [facility] (03/15/17 8:17 PM) Centre BODY FLUIDS Clarity CSF Slight Clear 03/16 [facility] *ABN* Centre (03/15/17 8:17 PM) BODY FLUIDS Color CSF Colorless Colorless 03/16 [facility] (03/15/17 8:17 PM) Centre BODY FLUIDS Comment CSF Differentia 03/16 [facility] l [facility] performed Center on WBC count of less than 5. BODY FLUIDS Tube Num CSF 1 03/16 [facility] ELECTROLYTE AGAP 10.1 meq/L 10.0 - 03/15 [facility] S 20.0 [facility] ELECTROLYTE eGFR 129 03/15 Result Comment: The eGFR is calculated using the CKD-EPI formula. In most young, healthy individuals the eGFR will be > 90 mL/min/1.73m2. The eGFR declines with age. An eGFR of 60-89 may be normal in [facility] mL/min/1.73 /2016 some populations, particularly the elderly, for whom the CKD-EPI formula has not been extensively validated. Use of the eGFR is not recommended in the following populations: [place] [address] Center Individuals with unstable creatinine concentrations, including [...] CO2 24 meq/L 24 - 32 03/15 [facility] [address] [place] [address] ELECTROLYTE Calcium Lvl 8.2 mg/dL 8.5 - 10.5 03/15 [facility]2016 [facility] ELECTROLYTE Creatinine 0.42 mg/dL 0.50 - 03/15 [facility] Lvl 1.40 [facility] ELECTROLYTE Sodium Lvl 140 meq/L 135 - 145 03/[address] ELECTROLYTE Potassium 4.1 meq/L 3.5 - 5.1 03/15 [facility] ELECTROLYTE BUN 11 mg/dL 7 - 22 03/[address] ELECTROLYTE Chloride Lvl 110 meq/L 95 - 109 03/[address] ELECTROLYTE Glucose Lvl 90 mg/dL 70 - 99 03/[address] HEMATOLOGY Microcyte 2+ None Seen 03/15 [facility] Center (03/15/17 6:55 PM) HEMATOLOGY Eosinophils 0.1 K/CMM 0.0 - 0.5 03/15 [facility] HEMATOLOGY Eosinophils 1.9 % 0.0 - 4.0 03/15 [facility]2016 [facility] HEMATOLOGY Monocytes 6.3 % 2.0 - 12.0 03/[address] HEMATOLOGY Lymphocytes 28.3 % 20.0 - 03/15 [facility] 40.0 [facility] HEMATOLOGY Segs-Bands # 3.7 K/CMM 1.5 - 8.1 03/[address] HEMATOLOGY Basophils 0.4 % 0.0 - 1.0 03/[address] HEMATOLOGY Lymphocytes 1.6 K/CMM 1.0 - 5.5 03/15 [facility]2016 [facility] HEMATOLOGY Monocytes # 0.4 K/CMM 0.0 - 0.8 03/15 [facility] HEMATOLOGY Plt Morph Normal 03/15 Medical (03/15/17 6:55 PM) Centre HEMATOLOGY Segs 63.1 % 45.0 - 03/15 75.0 /2016 [facility] HEMATOLOGY MPV 7.6 fL 7.4 - 10.4 03/15 [facility] HEMATOLOGY MCH 20.2 pg 27.0 - 03/15 [place] 31.0 [facility] HEMATOLOGY MCHC 29.3 g/dL 32.0 - 03/15 Result 36.0 Comment: Medical rechecked Centre HEMATOLOGY RDW 18.6 % 11.5 - 03/15 [...] Medical Center BLOOD BANK Antibody Negative 03/15 [facility] RESULTS [facility] Medical (03/15/17 6:48 PM) Centre Brain wo Brain wo EXAM: CT BRAIN WITHOUT CONTRAST 03/15 - [facility] contrast CT contrast CT /2016 - [facility] This report was dictated by a Boom Master/Fellow. I have personally reviewed the images as Center well as the Resident's interpretation and agree with the findings. DATE: 03/15/2017 Read by: Geo Christopher MD Resident: Geo Christopher MD Dictated Date/time: 03/15/17 21:44 Electronically Signed by: Ulises Darling MD 03/15/17 22:50 FINAL REPORT INDICATION: STEALTH PROTOCOL COMPARISON: Brain CT performed earlier of the same date at [facility] at 1253 hours TECHNIQUE: Multiple contiguous [...] EXAM: XR CHEST 1 VIEW 03/15 - [facility] DX /2016 - Medical This report was dictated by a Boom Master/Fellow. I have personally reviewed the images as [...] Source Systolic (mm Hg) 123 03/19/2017 [facility] Diastolic (mm Hg) 85 03/19/2017 [facility] Respitory Rate 18 03/19/2017 [facility] Heart Rate 84 03/19/2017 [facility] Temperature Oral (F) 97.7 F 03/19/2017 [facility] Temperature Oral (F) 97.8 F 03/19/2017 [facility] Heart Rate 70 03/19/2017 [facility] Systolic (mm Hg) 124 03/19/2017 [facility] Diastolic (mm Hg) 86 03/19/2017 [facility] Respitory Rate 18 03/19/2017 [facility] Heart Rate 69 03/19/2017 [facility] Temperature Oral (F) 97.1 F 03/19/2017 [facility] Systolic (mm Hg) 116 03/19/2017 [facility] Diastolic (mm Hg) 73 03/19/2017 [facility] Respitory Rate 18 03/19/2017 [facility] Weight 77.409 03/16/2017 [facility] BMI Calculated 49.88 03/16/2017 [facility] Weight 77.273 03/16/2017 [facility] Height 124.46 cm 03/16/2017 [facility] Weight 77.273 03/15/2017 [facility] BMI Calculated 49.88 03/15/2017 [facility] Height 124.46 cm 03/15/2017 [facility] Encounters Location Location Encounter Encounter Reason Attending ADM DC Status Source Details Type Number For Provider Date Date Visit [facility] [id number] [place] 03/15 03/19 [facility] Naveed Lares /2016 [facility] Procedures Procedure Code Date Perfomer Comments Source Cholecystectomy [id number] [facility] Creation of PERFORMANCE TESTER shunt [id number] [facility]
--- NOTE | 2018-10-28 15:01 | ER ---
Nurse's Notes [facility] Name: Luz Elena Pacheco Age: 43 yrs Sex: Female : 1975 Arrival Date: 10/28/2018 Time: 13:49 Bed Direct Admit Private MD: Monse Garcia R Diagnosis: Urinary tract infection, site not specified Presentation: 10/28 14:34 Presenting complaint: Patient states: Dr. Esparza was supposed to call here to admit me tw2 for the infection in my LEFT let and swelling and i think a UTI. Transition of care: patient was not received from another setting of care. Onset of symptoms was October 28, 2018. Risk Assessment: Do you want to hurt yourself or someone else? Patient reports no desire to harm self or others. Initial Sepsis Screen: Does the patient meet any 2 criteria? No. Patient's initial sepsis screen is negative. Does the patient have a suspected source of infection? Yes: Skin breakdown/wound. Note pt is in her own w/c at this time. Care prior to arrival: None. 14:34 Method Of Arrival: Wheelchair tw2 14:34 Acuity: ANASTASIIA 3 tw2 Triage Assessment: 14:36 General: Appears in no apparent distress. obese, Behavior is calm, cooperative, tw2 appropriate for age. Pain: Complains of pain in left leg. Derm: swelling and redness noted to LEFT leg. 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 - Social history:: Smoking status: . - Ebola Screening: : Patient denies travel to an Ebola-affected area in the 21 days before illness onset. Assessment: 14:47 Reassessment: pt was being brought to a room, THOM Wagner from the floor told me pt was tw2 being a direct admit and to have her wait in the lobby. Vital Signs: 14:35 BP 121 / 80; Pulse 116; Resp 17; Temp 98.1(TE); Pulse Ox 97% on R/A; Weight 90.72 kg tw2 (R); Height 4 ft. 1 in. (124.46 cm); Pain 10/10; 14:35 Body Mass Index 58.56 (90.72 kg, 124.46 cm) tw2 ED Course: 13:49 Patient arrived in ED. mr 13:50 Monse Garcia MD is Private Physician. mr 13:50 Conrado Santillan MD is Attending Physician. kdr 14:35 Triage completed. tw2 14:35 Arm band placed on. tw2 14:41 Ira Hussein, RN is Primary Nurse. ph 14:42 Patient has correct armband on for positive identification. Bed in low position. Call ph light in reach. Side rails up X 1. Pulse ox on. NIBP on. 14:52 Chest Single View XRAY In Process Unspecified. EDMS 14:54 No provider procedures requiring assistance completed. Patient did not have IV access ss during this emergency room visit. 15:00 Monse Garcia MD is Hospitalizing Provider. ss 15:01 Primary Nurse role handed off by Ira Hussein RN ss Administered Medications: 15:01 CANCELLED (Physician Discretion): vancoMYCIN 500 mg IVPB once over 2 hrs ss 15:01 CANCELLED (Physician Discretion): cefTAZidime 1 grams IVPB once over 30 mins; (mix in ss 100 mL NS) Outcome: 14:54 Admitted to Med/surg Other DIRECT ADMIT. ROOM 221. ss 14:54 Condition: stable 15:00 Decision to Hospitalize by Provider. ss 15:00 Patient left the ED. ss 15:02 Patient left the ED. ss Signatures: Dispatcher [employer] EDMS Conrado Santillan [facility]a mr Kay Garcia, THOM RN Ira Hussein RN RN Quin Renae RN RN tw2
--- NOTE | 2018-10-28 15:17 | RAD REPORT ---
EXAM DESCRIPTION: [place] Single View10/28/2018 2:51 pm CLINICAL HISTORY: Abdominal pain COMPARISON: June 2018 FINDINGS: The lungs appear clear of acute infiltrate. The heart is mildly enlarged. A SECURITY EXPERT shunt courses the chest and abdomen IMPRESSION: No acute abnormalities displayed
[2018-10-28 15:47] VITALS: BMI 55.4
[2018-10-28] MEDS ORDERED: ONDANSETRON 4 MG/2 ML VIAL IV PRN (17:23)
--- NOTE | 2018-10-28 17:37 | P.HP ---
Certification for Inpatient Patient admitted to: Observation With expected LOS: <2 Midnights Patient will require the following post-hospital care: None Practitioner: I am a practitioner with admitting privileges, knowledge of patient current condition, hospital course, and medical plan of care. 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 Patient complained of fever (102.0 F) and chills, that started yesterday and got progressively worse. Patient has also noted that she had started to have redness in her left lower extremity and a cut around her ankle which she thinks may be the cause of the infection. She went to her infectious disease doctor we evaluated her in the clinic and sent her over to the hospital for admission for left lower leg cellulitis. Patient denies any neurological symptoms. Patient also denies having any chest pain, shortness of breath diarrhea or any others Allergies Clindamycin Allergy (Mild, Uncoded 07/05/18 00:05) Hives/Rash Home Medications: Mirtazapine [Remeron*] 1 tab PO BEDTIME 10/28/18 - Past Medical/Surgical History Diabetic: No -: spina bifida -: depression -: shunts -: back surgery (spina bifida) -: bilateral leg surgery - Family History Father -: Heart disease, Hypertension, Diabetes - Social History Smoking Status: Never smoker Alcohol use: No CD- Drugs: No Caffeine use: Yes Place of Residence: Home Review of Systems 10-point ROS is otherwise unremarkable Physical Examination - Vital Signs Temperature: 98.1 F Blood Pressure: 126/65 Pulse: 115 Respirations: 20 Pulse Ox (%): 100 - Physical Exam General: Alert, In no apparent distress, Oriented x3 Respiratory: Clear to auscultation bilaterally, Normal air movement Cardiovascular: Regular rate/rhythm, Normal S1 S2 Gastrointestinal: Normal bowel sounds, No tenderness Musculoskeletal: Other (Bilateral lower leg contractures noted. Left lower leg cellulitis with increased aching and he 3 cm cut noted which is not punctured the subcutaneous tissue. No drainage noted either. However increased erythema and tenderness noted) Integumentary: Rash(es), Skin breakdown, Skin lesion Neurological: Normal speech, Normal tone Lymphatics: No axilla or inguinal lymphadenopathy - Studies Laboratory Data (last 24 hrs) 10/28/18 13:56: PT Cancelled, INR Cancelled, APTT Cancelled 10/28/18 13:56: WBC Cancelled, Hgb Cancelled, Hct Cancelled, Plt Count Cancelled 10/28/18 13:56: Sodium Cancelled, Potassium Cancelled, BUN Cancelled, Creatinine Cancelled, Glucose Cancelled, Total Bilirubin Cancelled, AST Cancelled, ALT Cancelled, Alkaline Phosphatase Cancelled, Lipase Cancelled Assessment and Plan - Problems (Diagnosis) (1) Cellulitis Current Visit: Yes Status: Acute Plan: Left lower leg cellulitis most likely secondary to cut noted on the ankle area. -started on IV vancomycin along with cephalosporin -wound culture collected -wound eye care professional as well -MRI of the foot pending at this time to evaluate for osteomyelitis -ID consulted. Appreciate recommendation Qualifiers: Site of cellulitis: extremity Site of cellulitis of extremity: lower extremity Laterality: left Qualified Code(s): L03.116 - Cellulitis of left lower limb (2) Complicated UTI (urinary tract infection) Onset Date: 07/06/18 Current Visit: No Status: Acute Plan: Patient with history of complicated UTI secondary to chronic straight catheterization. -UA is pending at this time -started on antibiotics for cellulitis which will cover for UTI as well (3) Neurogenic dysfunction of the urinary bladder Onset Date: 07/06/18 Current Visit: No Status: Chronic (4) Spina bifida Current Visit: Yes Status: Chronic Qualifiers: Spinal region: unspecified Presence of hydrocephalus: unspecified hydrocephalus presence Qualified Code(s): Q05.9 - Spina bifida, unspecified - Plan Admit patient to medical-surgical unit for further treatment of her right lower leg cellulitis and possible UTI. Discharge Plan: Home Plan to discharge in: Greater than 2 days - Advance Directives Does patient have a Living Will: No Does patient have a Durable POA for Healthcare: Yes - Code Status/Comfort Care Code Status Assessed: Yes Critical Care: No
[2018-10-28 17:55] LABS: Absolute Lymphocytes (CBC) 0.9 K/uL (0.7-4.9); Absolute Monocytes 0.4 K/uL (0.1-1.3); Basophils % 0.2 % (0-1.3); Eosinophils % 0.3 % (0-4.4); Hematocrit 34.7 % (36.0-45.0); Lymphocytes % 8.9 % (15.3-44.8); MPV 8.5 fL (7.6-11.3); Monocytes % 4.1 % (3.3-12.3); RBC Red Blood Cell Count 4.67 M/uL (3.86-4.86)
[2018-10-28] MEDS ORDERED: ACETAMINOPHEN 500 MG TAB PO ONE (17:57)
[2018-10-28] MEDS ORDERED: CEFTAZIDIME 1 GM VIAL IV SCH (18:00)
[2018-10-28 18:11] LABS: BUN Blood Urea Nitrogen 19 mg/dL (7-18); Bicarbonate 26 mmol/L (21-32); Glucose Level 85 mg/dL (74-106); Magnesium 1.9 mg/dL (1.8-2.4); Phosphorus 1.3 mg/dL (2.5-4.9); Potassium 3.3 mmol/L (3.5-5.1); Sodium Level 140 mmol/L (136-145)
[2018-10-28] MEDS: NA CHLORIDE 0.9% 1,000 ML IV SCH (18:14)
[2018-10-28 19:24] LABS: Urine Appearance TURBID; Urine Blood NEGATIVE (NEG); Urine Color DK YELLOW; Urine Glucose NEGATIVE (NEG); Urine Protein 2+ (NEG); Urine Specific Gravity 1.015 (1.005-1.030); Urine pH 8.5 (5.0-7.0)
[2018-10-28 19:35] LABS: Anisocytosis 1+; Blood Morphology Comment NOTED (NOT SEEN); Platelet Estimate ADEQ; Rouleau SLIGHT
[2018-10-28 19:36] LABS: Urine Bilirubin NEGATIVE (NEG); Urine Microscopic Reflex ORDER UMIC
[2018-10-28 19:44] LABS: Protime INR 1.19
[2018-10-28 20:26] LABS: Urine Triple Phosphate Crystal MANY (NONE SEEN)
[2018-10-28 20:41] LABS: Urine Amorphous Sediment 2+ /HPF (NONE SEEN); Urine Bacteria >50 /HPF (<20); Urine Culture Reflex Order REFLEXED; Urine RBC <5 /HPF (NONE SEEN)
[2018-10-28] MEDS: MIRTAZAPINE 15 MG TAB PO SCH (20:46)
[2018-10-28] MEDS: POTASS/SODIUM PHOSPHATE 1 PKT POWD.PACK PO SCH ×3 (20:46→22:04)
[2018-10-28] MEDS ORDERED: POTASSIUM CL SA 10 MEQ TAB PO ONE (21:00)
[2018-10-28] MEDS: CEFTAZIDIME 1 GM in NA CHLORIDE 0.9% 50 ML IV SCH (21:24)
[2018-10-28] MEDS: VANCOMYCIN 1.5 GM in NA CHLORIDE 0.9% 500 ML IVPB SCH (21:25)
[2018-10-29] MEDS: NA CHLORIDE 0.9% 1,000 ML IV SCH ×3 (03:05→23:03)
[2018-10-29 04:58] LABS: ALT/SGPT 16 U/L (12-78); AST/SGOT 18 U/L (15-37); Albumin 2.3 g/dL (3.4-5.0); Alkaline Phosphatase 106 U/L (45-117); BUN Blood Urea Nitrogen 16 mg/dL (7-18); Bicarbonate 23 mmol/L (21-32); Bilirubin Total 1.2 mg/dL (0.2-1.0); Glucose Level 86 mg/dL (74-106); Magnesium 1.8 mg/dL (1.8-2.4); Phosphorus 2.3 mg/dL (2.5-4.9); Protein, Total 6.8 g/dL (6.4-8.2); Sodium Level 140 mmol/L (136-145)
[2018-10-29] MEDS ORDERED: MAGNESIUM SULFATE 1 gm IVPB 1 GM/100 ML BAG IV ONE (06:00)
[2018-10-29 06:11] LABS: Absolute Lymphocytes (CBC) 0.8 K/uL (0.7-4.9); Absolute Monocytes 0.5 K/uL (0.1-1.3); Basophils % 0.1 % (0-1.3); Eosinophils % 0.7 % (0-4.4); Hematocrit 31.5 % (36.0-45.0); Lymphocytes % 9.6 % (15.3-44.8); MPV 8.3 fL (7.6-11.3); Monocytes % 6.2 % (3.3-12.3)
[2018-10-29] MEDS: POTASS/SODIUM PHOSPHATE 1 PKT POWD.PACK PO SCH ×3 (08:46→12:24)
[2018-10-29] MEDS: CEFTAZIDIME 1 GM in NA CHLORIDE 0.9% 50 ML IV SCH ×2 (08:52→20:11)
[2018-10-29] MEDS: VANCOMYCIN 1.5 GM in NA CHLORIDE 0.9% 500 ML IVPB SCH ×2 (08:52→20:13)
--- NOTE | 2018-10-29 08:55 | RAD REPORT ---
EXAM DESCRIPTION: MRI - Tib Fib Left W/Wo Cont - 10/28/2018 10:58 pm CLINICAL HISTORY: r/o osteomylitis Swelling, redness/cellulitis left lower leg. COMPARISON: No comparisons FINDINGS: Significant skin thickening and subcutaneous edema within the fat of the left lower leg is present. Small nonspecific skin nodules are present. The underlying tibia and fibula demonstrate normal marrow pattern without pathologic marrow replaceme nt or enhancement. No fracture or dislocation evident. There is no subcutaneous or intramuscular enhancing fluid collection to suggest abscess. No mass is p resent. IMPRESSION: No finding to suggest osteomyelitis seen.
--- NOTE | 2018-10-29 15:56 | P.PN ---
Subjective Date of Service: 10/29/18 Chief Complaint: Cellulitis of the lower extermites Review of Systems 10-point ROS is otherwise unremarkable Physical Examination - Vital Signs Temperature: 98.4 F Blood Pressure: 110/72 Pulse: 111 Respirations: 20 Pulse Ox (%): 94 - Physical Exam General: Alert, In no apparent distress Respiratory: Clear to auscultation bilaterally, Normal air movement Cardiovascular: Regular rate/rhythm, Normal S1 S2 Gastrointestinal: Normal bowel sounds, No tenderness Musculoskeletal: Swelling, Erythema, Tenderness, Warmth, Other (Left Leg with Lymphedema ) Integumentary: No rashes Neurological: Normal speech, Normal tone, Normal affect Lymphatics: Other (Spina bifida) - Studies Laboratory Data (last 24 hrs) 10/28/18 13:56: PT Cancelled, INR Cancelled, APTT Cancelled 10/28/18 13:56: WBC Cancelled, Hgb Cancelled, Hct Cancelled, Plt Count Cancelled 10/28/18 13:56: Sodium Cancelled, Potassium Cancelled, BUN Cancelled, Creatinine Cancelled, Glucose Cancelled, Total Bilirubin Cancelled, AST Cancelled, ALT Cancelled, Alkaline Phosphatase Cancelled, Lipase Cancelled Medications List Reviewed: Yes Assessment And Plan - Current Problems (Diagnosis) (1) Cellulitis Current Visit: Yes Status: Acute Plan: Left lower leg cellulitis most likely secondary to cut noted on the ankle area vs chronic lymphedema -started on IV vancomycin along with cephalosporin -wound culture collected and pending -wound day care center director. Reccs in the chart -MRI of the foot negative for osteomyelitis -ID consulted. Appreciate recommendation Qualifiers: Site of cellulitis: extremity Site of cellulitis of extremity: lower extremity Laterality: left Qualified Code(s): L03.116 - Cellulitis of left lower limb (2) Complicated UTI (urinary tract infection) Onset Date: 07/06/18 Current Visit: No Status: Acute Plan: Patient with history of complicated UTI secondary to chronic straight catheterizing. -UA is pending at this time -started on antibiotics for cellulites which will cover for UTI as well (3) Neurogenic dysfunction of the urinary bladder Onset Date: 07/06/18 Current Visit: No Status: Chronic (4) Spina bifida Current Visit: Yes Status: Chronic Qualifiers: Spinal region: unspecified Presence of hydrocephalus: unspecified hydrocephalus presence Qualified Code(s): Q05.9 - Spina bifida, unspecified - Plan Pending clinical Improvement. PICC line placement. F.u with Culture and wound care. continue current mgmt Discharge Plan: Other Plan to discharge in: Greater than 2 days - Code Status/Comfort Care Code Status Assessed: Yes Critical Care: No
[2018-10-29] MEDS: MIRTAZAPINE 15 MG TAB PO SCH (20:13)
[2018-10-29] MEDS ORDERED: LORazepam 2 MG/ML VIAL IV PRN (20:27)
[2018-10-30] MEDS ORDERED: MAGNESIUM SULFATE 1 gm IVPB 1 GM/100 ML BAG IV ONE ×2 (02:00→14:00)
[2018-10-30] MEDS: NA CHLORIDE 0.9% 1,000 ML IV SCH ×3 (05:06→18:04)
[2018-10-30 05:39] LABS: Absolute Monocytes 0.4 K/uL (0.1-1.3); Absolute Neutrophil 3.5 K/uL (1.8-8.0); Basophils % 0.2 % (0-1.3); Eosinophils % 4.1 % (0-4.4); Hematocrit 26.4 % (36.0-45.0); Lymphocytes % 20.2 % (15.3-44.8); MPV 8.3 fL (7.6-11.3); Monocytes % 7.1 % (3.3-12.3); RBC Red Blood Cell Count 3.59 M/uL (3.86-4.86)
[2018-10-30 05:56] LABS: ALT/SGPT 12 U/L (12-78); AST/SGOT 14 U/L (15-37); Albumin 1.9 g/dL (3.4-5.0); Alkaline Phosphatase 94 U/L (45-117); BUN Blood Urea Nitrogen 10 mg/dL (7-18); Bicarbonate 25 mmol/L (21-32); Bilirubin Total 0.5 mg/dL (0.2-1.0); Glucose Level 85 mg/dL (74-106); Magnesium 1.8 mg/dL (1.8-2.4); Phosphorus 1.8 mg/dL (2.5-4.9); Potassium 3.6 mmol/L (3.5-5.1); Protein, Total 5.8 g/dL (6.4-8.2); Sodium Level 143 mmol/L (136-145)
[2018-10-30] MEDS ORDERED: LIDOCAINE 1% MPF 5 ML VIAL IM PRN (07:00)
[2018-10-30] MEDS ORDERED: SODIUM CHLORIDE 0.9% 10ML INJ IV PRN ×2 (07:00)
[2018-10-30] MEDS: CEFTAZIDIME 1 GM in NA CHLORIDE 0.9% 50 ML IV SCH ×2 (08:41→20:27)
[2018-10-30] MEDS ORDERED: POTASSIUM PHOS IN 0.9 % NACL 15 MMOL/250 ML BAG IV ONE (09:00)
[2018-10-30] MEDS ORDERED: SODIUM CHLORIDE 0.9% 10ML INJ IV SCH (09:00)
[2018-10-30] MEDS: VANCOMYCIN 1.5 GM in NA CHLORIDE 0.9% 500 ML IVPB SCH (09:00)
--- NOTE | 2018-10-30 11:35 | RAD REPORT ---
EXAM DESCRIPTION: RAD - Chest Single View - 10/30/2018 3:00 am S/P PICC insertion COMPARISON: October 28, 2018. TECHNIQUE: XR CHEST 1 VIEW 10/30/2018 2:15 AM CDT FINDINGS: Cardiac silhouette is normal in size. Lung volumes are low. There is no pleural effusion. There is no pneumothorax. There are no acute osseous findings. Left PICC line tip is in the lower SVC . Right PLASTER MOLDER shunt is unchanged. IMPRESSION: Left PICC line tip in the lower SVC. Electronically signed by: Warren Blanc MD 10/30/2018 3:04 AM CDT Due to temporary technical issues with the PACS/Fluency reporting system, reports are being signed by the in house radiologist as a courtesy to ensure prompt reporting. The interpreting radiologist is f ully responsible for the content of the report.
[2018-10-30] MEDS: SILVER SULFADIAZINE 1% 50 GM TOP SCH (12:05)
--- NOTE | 2018-10-30 13:23 | P.PN ---
Subjective Date of Service: 10/30/18 Chief Complaint: Cellulitis of the lower extermites Subjective: No C/O voiced, Tolerating diet, Improving, Doing well, Other ( States she would like to Attend her Brother wedding on 11/07/18. Denies fever or chills. S.P PICC line) Review of Systems 10-point ROS is otherwise unremarkable Physical Examination - Vital Signs Temperature: 97.1 F Blood Pressure: 109/66 Pulse: 84 Respirations: 17 Pulse Ox (%): 100 - Physical Exam General: Alert, In no apparent distress HEENT: Atraumatic, PERRLA, EOMI Neck: Supple, JVD not distended Respiratory: Clear to auscultation bilaterally, Normal air movement Cardiovascular: Regular rate/rhythm, Normal S1 S2 Gastrointestinal: Normal bowel sounds, No tenderness Musculoskeletal: Contractures, Erythema, Tenderness, Warmth Integumentary: Skin lesion, Other (Spina Bifida) Neurological: Normal speech, Normal tone, Normal affect Lymphatics: No axilla or inguinal lymphadenopathy - Studies Medications List Reviewed: Yes Assessment And Plan - Current Problems (Diagnosis) (1) Cellulitis Current Visit: Yes Status: Acute Plan: Left lower leg cellulitis most likely secondary to cut noted on the ankle area vs chronic lymphedema -started on IV vancomycin and ceftazidine -wound culture collected and pending -wound dialysis patient care technician. Reccs in the chart -MRI of the foot negative for osteomyelitis -ID consulted. Appreciate recommendation -2 weeks IV Vanc 750mg daily and Ceftaizine 1g q12h. -If HH unable to do two IV may consider PO however prefer IV due to the chronic nature of the infection Qualifiers: Site of cellulitis: extremity Site of cellulitis of extremity: lower extremity Laterality: left Qualified Code(s): L03.116 - Cellulitis of left lower limb (2) Complicated UTI (urinary tract infection) Onset Date: 07/06/18 Current Visit: No Status: Acute Plan: Patient with history of complicated UTI secondary to chronic straight catheterizing. -Urine culture is pending at this time. 4+ gram - rods thus far -On IV Vanc and ceftazidine 10/01 (3) Neurogenic dysfunction of the urinary bladder Onset Date: 07/06/18 Current Visit: No Status: Chronic (4) Spina bifida Current Visit: Yes Status: Chronic Qualifiers: Spinal region: unspecified Presence of hydrocephalus: unspecified hydrocephalus presence Qualified Code(s): Q05.9 - Spina bifida, unspecified - Plan Pending clinical Improvement. F.u with Culture and wound care. CM consulted for IV abx at home arrangment Discharge Plan: Home Plan to discharge in: Greater than 2 days - Code Status/Comfort Care Code Status Assessed: Yes Critical Care: No
--- NOTE | 2018-10-30 16:16 | CON ---
History Of Present Illness: This is a 43-year-old female with significant history of spina bifida an d neurogenic bladder, coming in with left lower extremity cellulitis, which was seen earlier by me at Dr. [facility]. The patient denies any fever since she has been admitted to the hospital for IV antibiotic, which she is getting vancomycin and ceftazidime. The patient also prior to admission moreno d a fever of 100.2 and chills. Denies any other problems. As per mom, the patient's left foot has a wound after she got hit with the Kit lift at home. 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 Social History: Nonsmoker. Nondrinker. Lives with the parents. Medications: Ceftazidime and vancomycin. See [facility] for other medication. Allergies: CLINDAMYCIN. Review of Systems: A 10-point review was performed. Physical Examination: General: This is a 43-year-old female, lying in bed, not in any acute cardiopulmonary distress. PIC C line in place in the left arm. Vital Signs: Temperature 97, pulse 84, respirations 17, blood pressure 109/66. HEENT: Unremarkable. Neck: Supple. Lungs: Basal crackles. Heart: S1, S2. Regular. Abdomen: Soft. Bowel sounds present. Extremities: 4+ nonpitting edema, erythematous changes with increased warmth noted on the left side. Stasis dermatitis changes noted on both legs. Laboratory Data: WBC 5.1, hemoglobin 8.2, platelets are 174. Chemistry shows sodium 143, potassium 3.6, chloride 111, bicarb 25, BUN 10, creatinine 0.26, glucose is 85. Albumin level is 1.9. Assessment And Plan: A 43-year-old female with significant history of stasis dermatitis with spina b ifida and stasis dermatitis, coming in after left foot trauma with Kit lift and cellulitis of left leg. The patient was started on vancomycin and ceftazidime. The patient also has urinary tract infe ction on UA showing more than 50 WBC, severe protein-calorie malnourishment. Continue antibiotic for 2 weeks. Follow up with the wound care and primary care in 10 days. Continue supportive care. Anna ly silver soft to the wound site. We will follow the patient closely. NF/MODL Voice ID: [id number] Report ID: [id number]
[2018-10-30] MEDS ORDERED: VANCOMYCIN 1.5 GM in NA CHLORIDE 0.9% 500 ML IVPB SCH (18:00)
[2018-10-30] MEDS: MIRTAZAPINE 15 MG TAB PO SCH (20:27)
[2018-10-31] MEDS: NA CHLORIDE 0.9% 1,000 ML IV SCH ×4 (04:03→17:29)
[2018-10-31 06:23] LABS: Absolute Lymphocytes (CBC) 0.9 K/uL (0.7-4.9); Absolute Monocytes 0.2 K/uL (0.1-1.3); Absolute Neutrophil 2.4 K/uL (1.8-8.0); Basophils % 0.4 % (0-1.3); Eosinophils % 6.7 % (0-4.4); Hematocrit 27.4 % (36.0-45.0); Lymphocytes % 23.3 % (15.3-44.8); Monocytes % 6.5 % (3.3-12.3)
[2018-10-31 06:38] LABS: ALT/SGPT 14 U/L (12-78); AST/SGOT 15 U/L (15-37); Albumin 1.9 g/dL (3.4-5.0); Alkaline Phosphatase 85 U/L (45-117); BUN Blood Urea Nitrogen 5 mg/dL (7-18); Bicarbonate 25 mmol/L (21-32); Bilirubin Total 0.3 mg/dL (0.2-1.0); Glucose Level 91 mg/dL (74-106); Phosphorus 2.5 mg/dL (2.5-4.9); Potassium 4.1 mmol/L (3.5-5.1); Protein, Total 5.7 g/dL (6.4-8.2); Sodium Level 144 mmol/L (136-145)
[2018-10-31] MEDS ORDERED: POTASS/SODIUM PHOSPHATE 1 PKT POWD.PACK PO ONE (06:42)
[2018-10-31] MEDS: Levofloxacin 750mg IV 750 MG/150 ML BAG IV SCH (07:19)
[2018-10-31] MEDS: POTASS/SODIUM PHOSPHATE 1 PKT POWD.PACK PO SCH ×3 (08:24→10:51)
[2018-10-31] MEDS: SILVER SULFADIAZINE 1% 50 GM TOP SCH (08:25)
[2018-10-31] MEDS: VANCOMYCIN 1.5 GM in NA CHLORIDE 0.9% 500 ML IVPB SCH (10:51)
--- NOTE | 2018-10-31 13:40 | P.PN ---
Subjective Date of Service: 10/31/18 Chief Complaint: Cellulitis of the lower extermites Subjective: No C/O voiced, Tolerating diet, Improving, Doing well Review of Systems 10-point ROS is otherwise unremarkable Physical Examination - Vital Signs Temperature: 97.6 F Blood Pressure: 114/77 Pulse: 87 Respirations: 18 Pulse Ox (%): 100 - Physical Exam General: Alert, In no apparent distress HEENT: Atraumatic, PERRLA, EOMI Neck: Supple, JVD not distended Respiratory: Normal air movement, Expiratory wheezes, Inspiratory wheezes Cardiovascular: Regular rate/rhythm, Normal S1 S2 Gastrointestinal: Normal bowel sounds, No tenderness Musculoskeletal: No tenderness Integumentary: Skin lesion, Tenderness/swelling, Erythema Neurological: Normal speech, Normal tone, Normal affect Lymphatics: No axilla or inguinal lymphadenopathy - Studies Microbiology Data (last 24 hrs): 10/28/18 18:45 Clean Catch Urine [place] Count - Final >100,000 CFU/ML. 10/28/18 18:45 Clean Catch Urine - Final Proteus Mirabilis Pseudomonas Aeruginosa Medications List Reviewed: Yes Assessment And Plan - Current Problems (Diagnosis) (1) Cellulitis Current Visit: Yes Status: Acute Plan: Left lower leg cellulites most likely secondary to cut noted on the ankle area vs chronic lymphedema -Now on IV vanc 10/01 and Levaquin 1/14 -wound manager medicare marketing. Reccs in the chart -MRI of the foot negative for osteomyelitis -ID consulted. Appreciate recommendation -2 weeks IV Vanc 750mg daily and Levaquin PO Qualifiers: Site of cellulitis: extremity Site of cellulitis of extremity: lower extremity Laterality: left Qualified Code(s): L03.116 - Cellulitis of left lower limb (2) Complicated UTI (urinary tract infection) Onset Date: 07/06/18 Current Visit: No Status: Acute Plan: Patient with history of complicated UTI secondary to chronic straight catheterizing. -Urine culture + for proteus and Psuedo Sensitive to Levaquin. -On IV Vanc 10/01 and now on Levaquin 1/14 (3) Neurogenic dysfunction of the urinary bladder Onset Date: 07/06/18 Current Visit: No Status: Chronic (4) Spina bifida Current Visit: Yes Status: Chronic Qualifiers: Spinal region: unspecified Presence of hydrocephalus: unspecified hydrocephalus presence Qualified Code(s): Q05.9 - Spina bifida, unspecified - Plan Pending clinical Improvement. CM Consulted. HH arranged for IV vanc 750mg daily for 14 total days 10/01 today. PO levaquin 500mg Daily for 14 days as well. HH to come friday to the hospital for teaching and then Patient can be discharged once CM arrange for Abx at home. Discharge Plan: Other Plan to discharge in: Greater than 2 days - Code Status/Comfort Care Code Status Assessed: Yes Critical Care: No
[2018-10-31] MEDS: MIRTAZAPINE 15 MG TAB PO SCH (21:01)
[2018-10-31] MEDS: HYDROCODONE/APAP 10/325 TAB PO PRN (21:51)
[2018-11-01] MEDS: VANCOMYCIN 1.5 GM in NA CHLORIDE 0.9% 500 ML IVPB SCH ×3 (00:06→21:09)
[2018-11-01 05:33] LABS: BUN Blood Urea Nitrogen 3 mg/dL (7-18); Bicarbonate 26 mmol/L (21-32); Glucose Level 92 mg/dL (74-106); Phosphorus 2.4 mg/dL (2.5-4.9); Potassium 4.1 mmol/L (3.5-5.1); Sodium Level 143 mmol/L (136-145)
[2018-11-01] MEDS: NA CHLORIDE 0.9% 1,000 ML IV SCH ×3 (05:59→18:03)
[2018-11-01] MEDS: Levofloxacin 750mg IV 750 MG/150 ML BAG IV SCH (05:59)
[2018-11-01] MEDS: SILVER SULFADIAZINE 1% 50 GM TOP SCH (09:00)
[2018-11-01] MEDS ORDERED: VANCOMYCIN 750 MG in NA CHLORIDE 0.9% 150 ML IVPB SCH (09:00)
[2018-11-01] MEDS: POTASS/SODIUM PHOSPHATE 1 PKT POWD.PACK PO SCH ×3 (09:28→11:16)
--- NOTE | 2018-11-01 11:52 | P.PN ---
Subjective Date of Service: 11/01/18 Chief Complaint: Cellulitis of the lower extermites Subjective: Tolerating diet, Ambulating, Improving, Working w/ PT, Doing well Review of Systems 10-point ROS is otherwise unremarkable Physical Examination - Vital Signs Temperature: 97.1 F Blood Pressure: 112/62 Pulse: 96 Respirations: 14 Pulse Ox (%): 100 - Physical Exam General: Alert, In no apparent distress Respiratory: Clear to auscultation bilaterally, Normal air movement Cardiovascular: Regular rate/rhythm, Normal S1 S2 Gastrointestinal: Normal bowel sounds, No tenderness Musculoskeletal: Contractures, Erythema, Tenderness Integumentary: Skin lesion Neurological: Normal speech, Normal tone, Normal affect Lymphatics: No axilla or inguinal lymphadenopathy - Studies Microbiology Data (last 24 hrs): 10/28/18 18:45 Clean Catch Urine [place] Count - Final >100,000 CFU/ML. 10/28/18 18:45 Clean Catch Urine - Final Proteus Mirabilis Pseudomonas Aeruginosa Medications List Reviewed: Yes Assessment And Plan - Current Problems (Diagnosis) (1) Cellulitis Current Visit: Yes Status: Acute Plan: Left lower leg cellulites most likely secondary to cut noted on the ankle area vs chronic lymphedema -Now on IV vanc 4 and Levaquin 2/14 -wound customer care representative. Reccs in the chart -MRI of the foot negative for osteomyelitis -ID consulted. Appreciate recommendation -2 weeks IV Vanc 750mg daily and Levaquin PO Qualifiers: Site of cellulitis: extremity Site of cellulitis of extremity: lower extremity Laterality: left Qualified Code(s): L03.116 - Cellulitis of left lower limb (2) Complicated UTI (urinary tract infection) Onset Date: 07/06/18 Current Visit: No Status: Acute Plan: Patient with history of complicated UTI secondary to chronic straight catheterizing. -Urine culture + for proteus and Psuedo Sensitive to Levaquin. -On IV Vanc 414 and now on Levaquin 2/14 (3) Neurogenic dysfunction of the urinary bladder Onset Date: 07/06/18 Current Visit: No Status: Chronic (4) Spina bifida Current Visit: Yes Status: Chronic Qualifiers: Spinal region: unspecified Presence of hydrocephalus: unspecified hydrocephalus presence Qualified Code(s): Q05.9 - Spina bifida, unspecified - Plan Pending clinical Improvement. CM Consulted. HH arranged for IV vanc 750mg daily for 14 total days 11/01 today. PO levaquin 500mg Daily for 2 days as well. HH to come friday to the hospital for teaching and then Patient can be discharged once CM arrange for Abx at home.
[2018-11-01] MEDS: HYDROCODONE/APAP 10/325 TAB PO PRN (19:58)
[2018-11-01] MEDS: MIRTAZAPINE 15 MG TAB PO SCH (19:58)
[2018-11-02 05:34] LABS: BUN Blood Urea Nitrogen 4 mg/dL (7-18); Bicarbonate 27 mmol/L (21-32); Glucose Level 88 mg/dL (74-106); Phosphorus 2.5 mg/dL (2.5-4.9); Potassium 4.2 mmol/L (3.5-5.1); Sodium Level 145 mmol/L (136-145)
[2018-11-02] MEDS: NA CHLORIDE 0.9% 1,000 ML IV SCH (06:06)
[2018-11-02] MEDS: Levofloxacin 750mg IV 750 MG/150 ML BAG IV SCH (06:06)
[2018-11-02 08:06] VITALS: O2SAT 98
[2018-11-02] MEDS: POTASS/SODIUM PHOSPHATE 1 PKT POWD.PACK PO SCH ×3 (08:13→14:12)
[2018-11-02] MEDS: SILVER SULFADIAZINE 1% 50 GM TOP SCH (08:14)
[2018-11-02] MEDS: VANCOMYCIN 1.5 GM in NA CHLORIDE 0.9% 500 ML IVPB SCH (14:12)
[2018-11-02] MEDS ORDERED: POTASS/SODIUM PHOSPHATE 1 PKT POWD.PACK ONE (14:21)
[2018-11-02 14:23] VITALS: BP 138/84; TEMP 97.5
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
== END 2018-11-02 17:48 | disposition home health service (06) | DRG 602 ==
LOC: ER 13:45 → 2ND 14:53 → OBSVTOIN 10-30 13:40
PROVIDERS: ADMIT Family Medicine; ATTEND Family Medicine
PROC: 02HV33Z Insertion of Infusion Device into Superior Vena Cava, Percutaneous Approach (ICD-10-PCS; principal; 2018-10-30)
DX: L03.116 Cellulitis of left lower limb (principal); E43 Unspecified severe protein-calorie malnutrition; N39.0 Urinary tract infection, site not specified; Z68.43 Body mass index [BMI] 50.0-59.9, adult; B96.4 Proteus (mirabilis) (morganii) as the cause of diseases classified elsewhere; B96.5 Pseudomonas (aeruginosa) (mallei) (pseudomallei) as the cause of diseases classified elsewhere; N31.9 Neuromuscular dysfunction of bladder, unspecified; Q05.9 Spina bifida, unspecified; F41.8 Other specified anxiety disorders; D50.9 Iron deficiency anemia, unspecified; Z98.2 Presence of cerebrospinal fluid drainage device
CPT/HCPCS: 36415; 71045; 80048; 80053; 80202; 81003; 81015; 83605; 83735; 84100; 84145; 85025; 85610; 85730; 87040; 87070; 87077; 87086; 87088; 87186; 87205; 99285; A9577; G0378; J0713; J3475; J7030

== ENCOUNTER 2020-06-16 16:47 | Emergency (ER) | payer OTHER ==
--- OUTSIDE RECORDS SUMMARY | 2020-06-16 16:50 | XMS REPORT | Continuity of Care Document ---
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 Center ACUTE HEADACHE, Active 03/15/20 [place] PRESENCE OF Medical VENTRICULAR Center Spina bifida Resolved Problem 03/22/2017 [place] as (disorder) Medical Center Urinary tract Resolved Problem 03/22/2017 [place] infectious Medical disease Center (disorder) HEADACHE Active [facility] PRESENCE OF Active [facility] CEREBROSPINAL Medica l FLUID DRAINAGE Cente r Medications Medication Details Route Status Patient Ordering Order Source Instructions Provider Date heparin sodium, Notes: porcine No Longer [facility] porcine 2500 heparin Active 017 Medical UNT/ML Center Injectable Solution Ondansetron 4 4 mg = 1 tab, Active [facility] [place] MG Oral Tablet PO, Q8H, PRN 017 Medi felix [Zofran] Nausea/vomitin [place] g, # 42 tab, 0 Refill(s) Acetaminophen 1 tab, PO, [facility] / Q4H, PRN Pain, 017 Medical Codeine X 10 day, # 60 Center Phosphate 30 MG tab, 0 Oral Tablet Refill(s) [Tylenol with Codeine #3] Menthol 0.0044 Notes: (Same No Longer [facility] MG/MG / Zinc as: Active 017 Medical Oxide 0.2 MG/MG Calmoseptine) Ce nter Topical Ointment [Calmoseptine Ointment] Labetalol 20 mg, 4 mL, No Longer [facility] s Route: IVP, Active 017 Medical Drug form: Center INJ, Q15Min, Dosing Weight 77.273, kg, PRN Hypertension, Start date: 03/15/17 21:01:00 CDT, Duration: 3 doses or times, Stop date: 03/17/17 1:00:00 CDT Hydralazine Notes: (Same [place] as: Active 017 Medical Apresoline) Center Push over 5 minutes Saline Flush Notes: (Same No Longer [place] 0.9% as: BD Active 017 Medical Posiflush) Center sennosides, CORRECTION Notes: (Same No Longer [facility] as: Senokot) Active 017 Medical Center Docusate Notes: (Same No Longer [facility] as: Colace) Active 017 Medical (Do Not Crush) Center Regular 60 units) No Longer [facility] Insulin, Human WASTE: F/P - Active 017 Medi felix 100 UNT/ML Black; E - Center Injectable Municipal Solution Trash Bin Stable for 28 days at room temperature Expires in days from Date Dextrose 50% 12.5 gm, 25 [place] Longer [place] Syringe mL, Route: Active 017 Medical IVP, Drug Center Form: INJ, Dosing Weight 77.273, kg, PRN, PRN Abnormal Lab Result, Start date: 03/15/17 19:56:00 CDT, Duration: 30 day, Stop date: 04/14/17 19:55:00 CDT Saline Flush Notes: (Same No Longer [place] 0.9% as: BD Active 017 Medical Posiflush) Center Bisacodyl Notes: (Same [place] Longer [place] As: Dulcolax, Active 017 Medical Bisco-Lax) Center Acetaminophen Notes: Do not No Longer [facility] exceed 4 Active 017 Medical gm/day. (Same Center as: Tylenol) Morphine Notes: (Same No Longer [facility] as:MORPhine Active 017 Medical Sulfate) Center Acetaminophen Notes: (Same No Longer [facility] 325 MG / as: [place] Active 017 Medical Hydrocodone 325/5) Do not Cente r Bitartrate 5 MG exceed 4gm/day Oral Tablet of acetaminophen. sodium chloride 1,000 mL, No Longer [place] 0.9% 1000 ml Rate: 50 Active 017 Medical INJ 1,000 mL ml/hr, Infuse Cente r over: 20 hr, Route: IV, Dosing Weight 77.273 kg, Total Volume: 1,000, Start date: 03/15/17 19:56:00 CDT, Duration: 30 day, Stop date: 04/14/17 19:55:00 CDT Fentanyl Notes: (Same Inactive [facility] as: Sublimaze) [facility] Preservative Center free. Tylenol Notes: Do not Inactive [facility] exceed 4 017 Medical gm/day. (Same Center as: Tylenol) NS (Bolus) IV 1,000 mL, Inactive [facility] s 1,000 ml/hr, 017 Medical Infuse Over: 1 Center hr, Route: IV, 1,000, Drug form: INJ, ONCE, Priority: STAT, Dosing Weight 77.273 kg, Start date: 03/15/17 18:23:00 CDT, Duration: 1 doses or times, Stop date: 03/15/17 18:23:00 CDT Reglan Notes: (Same Inactive [facility] as: Reglan) [address] [place] [address] Allergies, Adverse Reactions, Alerts Substance Category Reaction Severity Reaction Status Date Comments S ource type Reported clindamycin Assertion Drug Active [facility] Immunizations No Data Provided for This Section Results Order Name Results Value Reference Date Interpretation Comments Ibeth rce Range BODY FLUIDS WBC CSF 3 0 - 53 03/16 [facility] BODY FLUIDS RBC CSF 4450 0 - 03 03/16 [facility] BODY FLUIDS Supernat CSF Colorless Colorless 03/16 [facility] (03/15/17 8:17 PM) [facility] BODY FLUIDS Clarity CSF Slight Clear 03/16 [place] *ABN* [facility] (03/15/17 8:17 PM) [place] BODY FLUIDS Color CSF Colorless Colorless 03/16 [place] (03/15/17 8:17 PM) [facility] BODY FLUIDS Comment CSF Differentia 03/16 [place] not Medical performed Center on WBC count of less than 5. BODY FLUIDS Tube Num CSF 1 03/16 [place] [facility] ELECTROLYTE AGAP 10.1 10.0 - 03/15 [place] S 20.0 [facility] ELECTROLYTE eGFR 129 03/15 Result MH Comment: The Medical eGFR is Center calculated using the CKD-EPI formula. In most young, healthy individuals the eGFR will be >90 mL/min/1.73m2 . The eGFR declines with age. An eGFR of 60-89 may be normal in some populations, particularly the elderly, for whom the CKD-EPI formula has not been extensively validated. Use of the eGFR is not recommended in the following populations:< br/>
Negra viduals with unstable creatinine concentration s, including patients and those with serious co-morbid conditions.<b r/>
Patie nts with extremes in muscle mass or diet.

The data above are obtained from the National Kidney Disease Education Program (NKDEP) which additionally recommends that when the eGFR is used in patients with extremes of body mass index for purposes of drug dosing, the eGFR should be multiplied by the estimated BMI. ELECTROLYTE CO2 24 24 - 32 03/15 [facility] ELECTROLYTE Calcium Lvl 8.2 8.5 - 10.5 03/15 [place] [facility] ELECTROLYTE Creatinine 0.42 0.50 - 03/15 [facility] Lvl 1.40 [facility] ELECTROLYTE Sodium Lvl 140 135 - 145 03/15 [facility] ELECTROLYTE Potassium 4.1 3.5 - 5.1 03/15 [facility] ELECTROLYTE BUN 11 7 - 22 03/15 [facility] ELECTROLYTE Chloride Lvl 110 95 - 109 03/15 [place] [facility] ELECTROLYTE Glucose Lvl 90 70 - 99 03/15 [facility] HEMATOLOGY Microcyte 2+ None Seen 03/15 *ABN* Medical (03/15/17 6:55 PM) Center HEMATOLOGY Eosinophils 0.1 0.0 - 0.5 03/15 [place] # [facility] HEMATOLOGY Eosinophils 1.9 0.0 - 4.0 03/15 a [facility] HEMATOLOGY Monocytes 6.3 2.0 - 12.0 03/15 2016 [facility] HEMATOLOGY Lymphocytes 28.3 20.0 - 03/15 [place] 40.0 [facility] HEMATOLOGY Segs-Bands # 3.7 1.5 - 8.1 03/15 [place] /2016 [facility] HEMATOLOGY Basophils 0.4 0.0 - 1.0 03/15 [facility] HEMATOLOGY Lymphocytes 1.6 1.0 - 5.5 03/15 [place] # /2016 [facility] HEMATOLOGY Monocytes # 0.4 0.0 - 0.8 03/15 [place] /2016 [facility] HEMATOLOGY Plt Morph Normal 03/15 [facility] (03/15/17 6:55 PM) /[address] [facility] HEMATOLOGY Segs 63.1 45.0 - 03/15 [place] 75.0 [facility] HEMATOLOGY MPV 7.6 7.4 - 10.4 03/15 [facility] HEMATOLOGY MCH 20.2 27.0 - 03/15 [place] 31.0 [facility] HEMATOLOGY MCHC 29.3 32.0 - 03/15 Result [facility] 36.0 Comment: [facility] rechecked [place] HEMATOLOGY RDW 18.6 11.5 - 03/15 [place] 14.5 [facility] HEMATOLOGY Platelet 199 133 - 450 03/15 [facility] HEMATOLOGY MCV 69.0 80.0 - 03/15 [place] 98.0 [facility] HEMATOLOGY RBC 4.28 4.20 - 03/15 [place] 5.40 /2016 [facility] HEMATOLOGY Hgb 8.7 12.0 - 03/15 [place] 16.0 [facility] HEMATOLOGY Hct 29.5 36.0 - 03/15 [place] 48.0 [facility] HEMATOLOGY WBC 5.8 3.7 - 10.4 03/15 [facility] HEMATOLOGY PT 12.9 12.0 - 03/15 [place] 14.7 [facility] HEMATOLOGY PTT 28.1 22.9 - 03/15 [place] 35.8 [facility] HEMATOLOGY INR 0.95 0.85 - 03/15 [place] 1.17 [facility] BLOOD BANK ABO/Rh O POS 03/15 [facility] RESULTS [facility] BLOOD BANK Antibody Negative 03/15 [facility] RESULTS Scrn (03/15/17 6:48 PM) [facility] Pathology Reports No Data Provided for This Section Diagnostic Reports Report Value Date Source Brain wo contrast CT EXAM: CT BRAIN WITHOUT CONTRAST 03/15/2017 [facility] Medical DATE: 03/15/2017 Center INDICATION: STEALTH PROTOCOL COMPARISON: Brain CT perform ed earlier of the same date at [facility] at 1253 hours TECHNIQUE: Multiple contiguous axial CT images of the brain with sagittal and coronal reformats, utilizing the STEALTH protocol IV contrast: None DISCUSSION: A right transparietal ventri cular catheter is again shown in place, unchanged in position as before. The ventricles remain decompressed, and are unchanged in size. No focal brain parenchymal abnormality is evident. Again, the cere bellar tonsils project below the plane of the foramen magnum, at the level of C1-C2. IMPRESSION: STEALTH protocol completed. No adverse interval change Stable size of the shunted ventricular system Cerebellar tonsillar ectopia Chest 1view DX EXAM: [facility]: [facility] 9:01 PM CDT Cent er INDICATION: - eval pre-op COMPARISON: 03/15/2017 outside radiograph. TECHNIQUE: AP chest FINDINGS: Lines, tubes and hardware: R ight upper quadrant surgical clips. Partially seen right ventricular shunt catheter. Lungs and pleura: The lungs are hypoinflated with bronchovascular crowding in the lung bases. There is no significant pleural effusion or pneumothorax. Heart and mediastinum: The h eart size is normal for technique. The mediastinal contours are normal. Bones: No acute bony abnormality is identified. Curvature of the spine is unchanged compared to prior imaging. IMPRESSION: No acute cardiopulmonary abnormality. Stable com pared to prior radiograph. [place] SECTION: ER Consultation Notes No Data Provided for This Section Discharge Summaries No Data Provided for This Section History and Physicals No Data Provided for This Section Vital Signs Vital Sign Value Date Comments Source Systolic (mm Hg) 123 03/19/2017 [facility] Diastolic (mm Hg) 85 03/19/2017 [facility] Respitory Rate 18 03/19/2017 [facility] Heart Rate 84 03/19/2017 [facility] Temperature Oral (F) 97.7 F 03/19/2017 [facility] Temperature Oral (F) 97.8 F 03/19/2017 [facility] Heart Rate 70 03/19/2017 [facility] Systolic (mm Hg) 124 03/19/2017 [facility] Diastolic (mm Hg) 86 03/19/2017 [facility] Respitory Rate 18 03/19/2017 [facility] [place] [facility] Heart Rate 69 03/19/2017 [facility] Temperature Oral (F) 97.1 F 03/19/2017 [facility] Systolic (mm Hg) 116 03/19/2017 [facility] (mm [facility]) 73 03/19/2017 [facility] 18 03/19/2017 [facility] Weight 77.409 03/16/2017 [facility] BMI Calculated 49.88 03/16/2017 [facility] Weight 77.273 03/16/2017 [facility] Height 124.46 cm 03/16/2017 [facility] Weight 77.273 03/15/2017 [facility] BMI Calculated 49.88 03/15/2017 [facility] Height 124.46 cm 03/15/2017 [facility] Encounters Location Location Encounter Encounter Reason Attending ADM DC Stat us Source Details Type Number For Provider Date Date Visit [facility] [id number] [place] 03/15 03/19 [facility] Naveed Lares /2016 [facility] Procedures Procedure Code Date Perfomer Comments Source Cholecystectomy [id number] [facility] Creation of 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 Alcohol Never Smoking Status Never smoker; Exposure to Tobacco Smoke None; Cigarette Smoking Last 365 Days No; Reg Smoking Cessation Counseling No Family History No Data Provided for This Section Advance Directives No Data Provided for This Section Functional Status No Data Provided for This Section
[2020-06-16] MEDS ORDERED: HYDROCODONE/APAP 5/325 MG TAB ONE (18:09)
--- NOTE | 2020-06-16 18:22 | RAD REPORT ---
EXAM DESCRIPTION: CT - Head Brain Wo Cont - 06/16/2020 6:07 pm CLINICAL HISTORY: Headache COMPARISON: 2017 TECHNIQUE: Computed axial tomography of the head was obtained. IV contrast was not requested. All CT scans are performed using dose optimization technique as appropriate and may include automated exposure control or mA/KV adjustment according to patient size. FINDINGS: An intracranial bleed is not seen . A ventricular shunt traverses the right lateral ventricle. The tip lies within the parenchyma of the right frontal lobe. It is unchanged in position. No hydrocephalus Cerebellar tonsillar ectopia is present. No extra-axial fluid collection is noted. Fluid within the sinuses/ mastoids is not seen. IMPRESSION: No acute intracranial abnormality is seen. If patient's symptoms persist MRI of the bra in would be recommended.
--- NOTE | 2020-06-16 18:35 | ER ---
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 Coronavirus screen: Client denies travel out of the [place] in the last 14 days. Ebola Screen: Patient negative for fever greater than or equal to 101.5 degrees Fahrenheit, and additional compatible Ebola Virus Disease symptoms Patient denies exposure to infectious person. Patient denies travel to an Ebola-affected area in the 21 days before illness onset. No symptoms or risks identified at this time. Initial Sepsis Screen: Does the patient meet any 2 criteria? No. Patient's initial sepsis screen is negative. Does the patient have a suspected source of infection? No. Patient's initial sepsis screen is negative. Risk Assessment: Do you want to hurt yourself or someone else? Patient reports no desire to harm self or others. Onset of symptoms was June 09, 2020. 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 - Social history:: Smoking status: Patient denies any tobacco usage or history of. Patient/guardian denies using alcohol, street drugs, The patient lives with family. - Family history:: not pertinent. Screenin:45 Abuse screen: Denies threats or abuse. Denies injuries from another. Nutritional ca1 screening: No deficits noted. Tuberculosis screening: No symptoms or risk factors identified. Fall Risk Gait- Impaired (20 pts.). Total Bradley Fall Scale indicates No Risk (0-24 pts). Assessment: 17:45 General: Appears in no apparent distress. comfortable, Behavior is calm, cooperative, ca1 appropriate for age. Pain: Complains of pain in top of head. Neuro: Level of Consciousness is awake, alert, obeys commands, Oriented to person, place, time, situation. Cardiovascular: Heart tones S1 S2 present Capillary refill < 3 seconds Patient's skin is warm and dry. Respiratory: Airway is patent Respiratory effort is even, unlabored, Respiratory pattern is regular, symmetrical. 18:33 Reassessment: Patient appears in no apparent distress at this time. Patient and/or ca1 family updated on plan of care and expected duration. Pain level reassessed. Patient is alert, oriented x 3, equal unlabored respirations, skin warm/dry/pink. Vital Signs: 17:30 BP 147 / 103; Pulse 77; Resp 18; Temp 98.1; Pulse Ox 98% on R/A; Weight 79.38 kg; em Height 4 ft. 1 in. (124.46 cm); Pain 10/10; 18:33 BP 146 / 91; Pulse 78; Resp 16 S; Pulse Ox 98% on R/A; ca1 17:30 Body Mass Index 51.24 (79.38 kg, 124.46 cm) em Phoenix Coma Score: 17:52 Eye Response: spontaneous(4). Verbal Response: oriented(5). Motor Response: obeys ma2 commands(6). Total: 15. ED Course: 16:48 Patient arrived in ED. as 17:33 Triage completed. em 17:35 Arm band placed on. em 17:36 Marina Lockett MD is Attending Physician. ma2 17:39 Kathy Hatch, THOM is Primary Nurse. ca1 17:45 Patient has correct armband on for positive identification. Bed in low position. Call ca1 light in reach. Side rails up X2. Adult w/ patient. Pulse ox on. NIBP on. Warm blanket given. 18:07 CT Head Brain wo Cont In Process Unspecified. EDMS 18:44 No provider procedures requiring assistance completed. Patient did not have IV access ca1 during this emergency room visit. Administered Medications: 17:57 Drug: Av[place] 5 mg-325 mg 1 tabs {Note: rass 0.} Route: PO; ca1 18:40 Follow up: Response: No adverse reaction; Pain is decreased; RASS: Alert and Calm (0) ca1 Outcome: 18:34 Discharge ordered by . earnest 18:44 Discharged to home via wheelchair, with family. ca1 18:44 Condition: stable 18:44 Discharge instructions given to patient, family, mother Instructed on discharge instructions, follow up and referral plans. medication usage, Demonstrated understanding of instructions, follow-up care, medications, Prescriptions given X 1. 18:45 Patient left the ED. ca1 Signatures: Dispatcher [employer] Kirby Lopez, RN RN Modesta Tinsley Mohammad, MD MD ma2 Acob, Cheryl RN RN ca1
--- NOTE | 2020-06-16 18:35 | EDPHYS ---
Physician Documentation [facility] Name: Luz Elena Pacheco Age: 44 yrs Sex: Female : 1975 Arrival Date: 06/16/2020 Time: 16:48 Bed 17 Private MD: ED Physician Marina Lockett HPI: 06/16 17:52 This 44 yrs old Female presents to ER via Wheelchair with complaints of ma2 Headache. 17:52 The patient complains of pain to the forehead. Onset: The symptoms/episode ma2 began/occurred gradually, 3 day(s) ago. Associated signs and symptoms: Pertinent negatives: fever, nausea, neck stiffness, paresthesias, vomiting. Severity of symptoms: At its worst the pain was mild, in the emergency department the pain is unchanged. has "scalp pain" on top of her head she felt a fainfull node on top of her head. no headache no vomiting or signs of increased icp, she has a gm/svp global publisher business shunt, gm/svp global publisher business shunt reservoir not painful or tender . 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 - Social history:: Smoking status: Patient denies any tobacco usage or history of. Patient/guardian denies using alcohol, street drugs, The patient lives with family. - Family history:: not pertinent. ROS: 17:52 Constitutional: Negative for fever, chills, and weight loss. ma2 17:52 All other systems are negative. Exam: 17:52 Constitutional: This is a well developed, well nourished patient who is awake, alert, ma2 and in no acute distress. Head/Face: scalp exam is unremarkable, gm/svp global publisher business resvoire is normally comressible and none tender, Normocephalic, atraumatic. Eyes: Pupils equal round and reactive to light, extra-ocular motions intact. Lids and lashes normal. Conjunctiva and sclera are non-icteric and not injected. Cornea within normal limits. Periorbital areas with no swelling, redness, or edema. ENT: Nares patent. No nasal discharge, no septal abnormalities noted. Tympanic membranes are normal and external auditory canals are clear. Oropharynx with no redness, swelling, or masses, exudates, or evidence of obstruction, uvula midline. Mucous membranes moist. Neck: Trachea midline, no thyromegaly or masses palpated, and no cervical lymphadenopathy. Supple, full range of motion without nuchal rigidity, or vertebral point tenderness. No Meningismus. Chest/axilla: Normal chest wall appearance and motion. Nontender with no deformity. No lesions are appreciated. Cardiovascular: Regular rate and rhythm with a normal S1 and S2. No gallops, murmurs, or rubs. Normal PMI, no JVD. No pulse deficits. Respiratory: Lungs have equal breath sounds bilaterally, clear to auscultation and percussion. No rales, rhonchi or wheezes noted. No increased work of breathing, no retractions or nasal flaring. Abdomen/GI: Soft, non-tender, with normal bowel sounds. No distension or tympany. No guarding or rebound. No evidence of tenderness throughout. Skin: Warm, dry with normal turgor. Normal color with no rashes, no lesions, and no evidence of cellulitis. MS/ Extremity: Pulses equal, no cyanosis. Neurovascular intact. Full, normal range of motion. Neuro: Awake and alert, GCS 15, oriented to person, place, time, and situation. Cranial nerves II-XII grossly intact. Motor strength 5/5 in all extremities. Sensory grossly intact. Cerebellar exam normal. Normal gait. Vital Signs: 17:30 BP 147 / 103; Pulse 77; Resp 18; Temp 98.1; Pulse Ox 98% on R/A; Weight 79.38 kg; em Height 4 ft. 1 in. (124.46 cm); Pain 10/10; 18:33 BP 146 / 91; Pulse 78; Resp 16 S; Pulse Ox 98% on R/A; ca1 17:30 Body Mass Index 51.24 (79.38 kg, 124.46 cm) em [place] Coma Score: 17:52 Eye Response: spontaneous(4). Verbal Response: oriented(5). Motor Response: obeys ma2 commands(6). Total: 15. MDM: 17:38 Patient medically screened. ma2 17:52 Differential diagnosis: sinusitis, subdural hematoma, tension headache, traumatic ma2 injuries. Data reviewed: vital signs, nurses notes. Counseling: I had a detailed discussion with the patient and/or guardian regarding: the historical points, exam findings, and any diagnostic results supporting the discharge/admit diagnosis, the presence of at least one elevated blood pressure reading (>120/80) during this emergency department visit, the need for outpatient follow up. Response to treatment: the patient's symptoms have markedly improved after treatment. 06/16 17:48 Order name: CT Head Brain wo Cont; Complete Time: 18:33 ma2 Administered Medications: 17:57 Drug: [place] 5 mg-325 mg 1 tabs {Note: rass 0.} Route: PO; ca1 18:40 Follow up: Response: No adverse reaction; Pain is decreased; RASS: Alert and Calm (0) ca1 Disposition: 06/16/20 18:34 Discharged to Home. Impression: Headache. - Condition is Stable. - Discharge Instructions: General Headache Without Cause. - Prescriptions for Diclofenac Sodium 75 mg Oral Tablet Sustained Release - take 1 tablet by ORAL route 2 times per day; 30 tablet. - Medication Reconciliation Form, Thank You Letter, Antibiotic Education, Prescription Opioid Use form. - Follow up: Private Physician; When: Tomorrow; Reason: Recheck today's complaints, Continuance of care. Signatures: Dispatcher [employer] Kirby Lopez RN RN em Alzahri, Mohammad, MD MD dc2 Kathy Hatch RN RN ca1 Corrections: (The following items were deleted from the chart) 18:45 18:34 06/16/2020 18:34 Discharged to Home. Impression: Headache. Condition is Stable. ca1 Prescriptions for Diclofenac Sodium 75 mg Oral Tablet Sustained Release - take 1 tablet by ORAL route 2 times per day; 30 tablet. and Forms are Medication Reconciliation Form, Thank You Letter, Antibiotic Education, Prescription Opioid Use. Follow up: Private Physician; When: Tomorrow; Reason: Recheck today's complaints, Continuance of care. ma2
[2020-06-16 20:42] VITALS: TEMP 98.1; O2SAT 98
[2020-06-16 20:44] VITALS: BP 146/91
== END 2020-06-16 18:45 | disposition home or self-care (01) ==
LOC: ER 16:47
DX: R51.9 Headache, unspecified (principal); Z88.1 Allergy status to other antibiotic agents
CPT/HCPCS: 70450; 99284

== ENCOUNTER 2020-08-07 14:41 | Emergency (ER) | payer OTHER ==
--- OUTSIDE RECORDS SUMMARY | 2020-08-07 14:53 | XMS REPORT | Continuity of Care Document ---
:1975 Author Organization [facility] Care Team Providers Name Role Phone [facility] Unavailable Un available Problems Problem Status Onset Classification Date Comments Sourc e Date Reported HANSEN WITH POSSIBLE Active 03/15/20 [facility] CALL CENTER ASSOCIATE SHUNT 17 Medical MALFUNCTION Center ACUTE HEADACHE, Active 03/15/20 [place] PRESENCE OF Medical VENTRICULAR Center Spina bifida Resolved Problem 03/22/2017 [place] as (disorder) Medical Center Urinary tract Resolved Problem 03/22/2017 [place] infectious Medical disease Center (disorder) HEADACHE Active [facility] PRESENCE OF Active [facility] CEREBROSPINAL Medica l FLUID DRAINAGE Cente r Medications Medication Details Route Status Patient Ordering Order Source Instructions Provider Date heparin sodium, Notes: porcine No Longer [facility] porcine 2500 heparin Active 017 Medical UNT/ML Center Injectable Solution Ondansetron 4 4 mg = 1 tab, Active [facility] [place] MG Oral Tablet PO, Q8H, PRN 017 Medi felix [Zofran] Nausea/vomitin [place] g, # 42 tab, 0 Refill(s) Acetaminophen 1 tab, PO, [facility] / Q4H, PRN Pain, 017 Medical Codeine X 10 day, # 60 Center Phosphate 30 MG tab, 0 Oral Tablet Refill(s) [Tylenol with Codeine #3] Menthol 0.0044 Notes: (Same No Longer [facility] MG/MG / Zinc as: Active 017 Medical Oxide 0.2 MG/MG Calmoseptine) Ce nter Topical Ointment [Calmoseptine Ointment] Labetalol 20 mg, 4 mL, No Longer [facility] s Route: IVP, Active 017 Medical Drug [...] BD Active 017 Medical Posiflush) Center sennosides, GROUP HOME Notes: (Same No Longer [facility] as: Senokot) Active 017 Medical Center Docusate Notes: (Same No Longer [facility] as: Colace) Active 017 Medical (Do Not Crush) Center Regular 60 units) No Longer [facility] Insulin, Human WASTE: F/P - Active [...] Center Acetaminophen Notes: Do not No Longer [facility] exceed 4 Active 017 Medical gm/day. (Same Center as: Tylenol) Morphine Notes: (Same No Longer [facility] as:MORPhine Active 017 Medical Sulfate) Center Acetaminophen Notes: (Same No Longer [facility] 325 MG / as: [place] Active 017 Medical Hydrocodone 325/5) Do not [...] 04/14/17 19:55:00 CDT Fentanyl Notes: (Same Inactive [facility] as: Sublimaze) 017 Medical Preservative Center free. Tylenol Notes: Do not Inactive [facility] exceed 4 017 Medical gm/day. (Same Center as: Tylenol) NS (Bolus) IV 1,000 mL, Inactive [facility] s 1,000 ml/hr, 017 Medical Infuse Over: 1 Center hr, Route: IV, 1,000, Drug form: INJ, ONCE, Priority: STAT, Dosing Weight 77.273 kg, Start date: 03/15/17 18:23:00 CDT, Duration: 1 doses or times, Stop date: 03/15/17 18:23:00 CDT Reglan Notes: (Same Inactive [facility] as: Reglan) [address] [place] [address] Allergies, Adverse Reactions, Alerts Substance Category Reaction Severity Reaction Status Date Comments S ource type Reported clindamycin Assertion Drug Active [facility] Immunizations No Data Provided for This Section Results Order Name Results Value Reference Date Interpretation Comments Ibeth rce Range BODY FLUIDS WBC CSF 3 0 - 53 03/16 [facility] BODY FLUIDS RBC CSF 4450 0 - 03 03/16 [facility] BODY FLUIDS Supernat CSF Colorless Colorless 03/16 [facility] (03/15/17 8:17 PM) [facility] BODY FLUIDS Clarity CSF Slight Clear 03/16 [place] *ABN* Medical (03/15/17 8:17 PM) [place] BODY FLUIDS Color CSF Colorless Colorless 03/16 [place] (03/15/17 8:17 PM) [facility] [place] BODY FLUIDS Comment CSF Differentia 03/16 [place] not Medical performed Center on WBC count of less than 5. BODY FLUIDS Tube Num CSF 1 03/16 [place] [facility] ELECTROLYTE AGAP 10.1 10.0 - 03/15 [place] S 20.0 [facility] ELECTROLYTE eGFR 129 03/15 Result [facility] Comment: [...] ELECTROLYTE CO2 24 24 - 32 03/15 [facility] ELECTROLYTE Calcium Lvl 8.2 8.5 - 10.5 03/15 [place] [facility] ELECTROLYTE Creatinine 0.42 0.50 - 03/15 [facility] Lvl 1.40 [facility] ELECTROLYTE Sodium Lvl 140 135 - 145 03/15 [facility] s S [facility] ELECTROLYTE Potassium 4.1 3.5 - 5.1 03/15 [facility] ELECTROLYTE BUN 11 7 - 22 03/15 [facility] ELECTROLYTE Chloride Lvl 110 95 - 109 03/15 [place] [facility] ELECTROLYTE Glucose Lvl 90 70 - 99 03/15 [facility] HEMATOLOGY Microcyte 2+ None Seen 03/15 *ABN* Medical (03/15/17 6:55 PM) Center HEMATOLOGY Eosinophils 0.1 0.0 - 0.5 03/15 [place] # [facility] HEMATOLOGY Eosinophils 1.9 0.0 - 4.0 03/15 [place] [facility] HEMATOLOGY Monocytes 6.3 2.0 - 12.0 03/15 2016 [facility] HEMATOLOGY Lymphocytes 28.3 20.0 - 03/15 [place] 40.0 [facility] HEMATOLOGY Segs-Bands # 3.7 1.5 - 8.1 03/15 [place] as /2016 [facility] HEMATOLOGY Basophils 0.4 0.0 - 1.0 03/15 [facility] HEMATOLOGY Lymphocytes 1.6 1.0 - 5.5 03/15 [place] # /2016 [facility] HEMATOLOGY Monocytes # 0.4 0.0 - 0.8 03/15 [place] /2016 [facility] HEMATOLOGY Plt Morph Normal 03/15 [facility] (03/15/17 6:55 PM) [facility] HEMATOLOGY Segs 63.1 45.0 - 03/15 [place] 75.0 [facility] HEMATOLOGY MPV 7.6 7.4 - 10.4 03/15 [facility] HEMATOLOGY MCH 20.2 27.0 - 03/15 [place] 31.0 [facility] HEMATOLOGY MCHC 29.3 32.0 - 03/15 Result [facility] 36.0 Comment: [facility] rechecked [place] HEMATOLOGY RDW 18.6 11.5 - 03/15 [place] 14.5 [facility] HEMATOLOGY Platelet 199 133 - 450 03/15 [facility] HEMATOLOGY MCV 69.0 80.0 - 03/15 [place] 98.0 [facility] HEMATOLOGY RBC 4.28 4.20 - 03/15 [place] 5.40 /2016 [facility] HEMATOLOGY Hgb 8.7 12.0 - 03/15 [place] 16.0 [facility] HEMATOLOGY Hct 29.5 36.0 - 03/15 [place] 48.0 [facility] HEMATOLOGY WBC 5.8 3.7 - 10.4 03/15 [facility] HEMATOLOGY PT 12.9 12.0 - 03/15 14.7 [facility] HEMATOLOGY PTT 28.1 22.9 - 03/15 [place] 35.8 [facility] HEMATOLOGY INR 0.95 0.85 - 03/15 [place] 1.17 [facility] BLOOD BANK ABO/Rh O POS 03/15 [facility] RESULTS [facility] BLOOD BANK Antibody Negative 03/15 [facility] RESULTS Scrn (03/15/17 6:48 PM) [facility] Pathology Reports No Data Provided for This Section Diagnostic Reports Report Value Date Source Brain wo contrast CT EXAM: CT BRAIN WITHOUT CONTRAST 03/15/2017 [facility] Medical DATE: 03/15/2017 Center INDICATION: STEALTH PROTOCOL COMPARISON: Brain CT perform ed earlier of the same date at [facility] at 1253 hours TECHNIQUE: Multiple contiguous axial [...] DX EXAM: XR CHEST [facility]: [facility]15[facility]2017 9:01 PM CDT [...] Comments Source Systolic (mm Hg) 123 03/19/2017 [facility] Diastolic (mm Hg) 85 03/19/2017 [facility] Respitory Rate 18 03/19/2017 [facility] Heart Rate 84 03/19/2017 [facility] Temperature Oral (F) 97.7 F 03/19/2017 [facility] Temperature Oral (F) 97.8 F 03/19/2017 [facility] Heart Rate 70 03/19/2017 [facility] Systolic (mm Hg) 124 03/19/2017 [facility] Diastolic (mm Hg) 86 03/19/2017 [facility] Respitory Rate 18 03/19/2017 [facility] Heart Rate 69 [facility] Temperature Oral (F) 97.1 F 03/19/2017 [facility] Systolic (mm Hg) 116 03/19/2017 [facility] Diastolic (mm Hg) 73 03/19/2017 [facility] Respitory Rate 18 03/19/2017 [facility] Weight 77.409 03/16/2017 [facility] BMI Calculated 49.88 03/16/2017 [facility] Weight 77.273 03/16/2017 [facility] Height 124.46 cm 03/16/2017 [facility] Weight 77.273 03/15/2017 [facility] BMI Calculated 49.88 03/15/2017 [facility] Height 124.46 cm 03/15/2017 [facility] Encounters Location Location Encounter Encounter Reason Attending ADM DC Stat us Source Details Type Number For Provider Date Date Visit [facility] [id number] [place] 03/15 03/19 [facility] Naveed [place]res /2016 [facility] Procedures Procedure Code Date Perfomer Comments Source Cholecystectomy [id number] [facility] Creation of CALL CENTER ASSOCIATE shunt [id number] [facility] Assessment and Plan No Data Provided for This Section Plan of Care No Data Provided for This Section Social History Social History Date Source Social History TypeResponse 03/16/2017 [facility] Substance Abuse Use: None. Alcohol Never Smoking Status Never smoker; Exposure to Tobacco Smoke None; Cigarette Smoking Last 365 Days No; Reg Smoking Cessation Counseling No Family History No Data Provided for This Section Advance Directives No Data Provided for This Section Functional Status No Data Provided for This Section
--- NOTE | 2020-08-07 15:02 | ER ---
Nurse's Notes [facility] Name: Luz Elena Pacheco Age: 44 yrs Sex: Female : 1975 Arrival Date: 08/07/2020 Time: 14:42 Bed 8 Private MD: Monse Garcia R Diagnosis: Bitten by rat Presentation: 08/07 14:47 Chief complaint: Parent and/or Guardian states: Rat bites on the R thigh and R leg ca1 since last night. 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 Coronavirus screen: Client denies travel out of the [place] in the last 14 days. At this time, the client does not indicate any symptoms associated with coronavirus-19. Ebola Screen: Patient negative for fever greater than or equal to 101.5 degrees Fahrenheit, and additional compatible Ebola Virus Disease symptoms Patient denies exposure to infectious person. Patient denies travel to an Ebola-affected area in the 21 days before illness onset. No symptoms or risks identified at this time. Initial Sepsis Screen: Does the patient meet any 2 criteria? No. Patient's initial sepsis screen is negative. Does the patient have a suspected source of infection? No. Patient's initial sepsis screen is negative. Risk Assessment: Do you want to hurt yourself or someone else? Patient reports no desire to harm self or others. Onset of symptoms was August 06, 2020. 14:47 Method Of Arrival: Wheelchair ca1 14:47 Acuity: ANASTASIIA 4 ca1 Triage Assessment: 15:00 General: Appears in no apparent distress. comfortable, Behavior is cooperative, bp appropriate for age, anxious. Pain: Complains of pain in right leg. EENT: No deficits noted. Neuro: No deficits noted. Cardiovascular: No deficits noted. Respiratory: No deficits noted. GI: No signs and/or symptoms were reported involving the gastrointestinal system. : No signs and/or symptoms were reported regarding the genitourinary system. Derm: No deficits noted. Musculoskeletal: No deficits noted. Injury Description: Bite sustained to right leg caused by a rat, is superficial, from animal, was sustained 6-12 hours ago. 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 - Social history:: Smoking status: Patient denies any tobacco usage or history of. Screenin:00 Abuse screen: Denies threats or abuse. Denies injuries from another. Nutritional bp screening: No deficits noted. Tuberculosis screening: No symptoms or risk factors identified. Fall Risk None identified. Assessment: 15:00 General: SEE TRIAGE NOTE. bp Vital Signs: 14:47 BP 147 / 87; Pulse 75; Resp 18 S; Temp 97.6(TE); Pulse Ox 98% on R/A; Weight 83.91 kg ca1 (R); Height 4 ft. (121.92 cm); Pain 0/10; 15:30 BP 132 / 79; Pulse 77; Resp 16; Temp 97.8; Pulse Ox 98% ; bp 14:47 Body Mass Index 56.45 (83.91 kg, 121.92 cm) ca1 14:47 no sensation from waist down ca1 ED Course: 14:42 Patient arrived in ED. ag5 14:42 Monse Garcia MD is Private Physician. ag5 14:49 Triage completed. ca1 14:50 Arm band placed on right wrist. ca1 14:53 Ynes Sotelo FNP-C is PHCP. kb 14:53 Juancarlos Loyd MD is Attending Physician. kb 15:00 Patient has correct armband on for positive identification. Bed in low position. Call bp light in reach. Side rails up X2. 15:01 Kalyan Decker, THOM is Primary Nurse. bp 15:30 Wound care: to RAT BITES located on right leg was cleaned with Betadine, dressed with bp Neosporin, Patient tolerated well. 15:48 No provider procedures requiring assistance completed. Patient did not have IV access bp during this emergency room visit. Administered Medications: 15:30 Drug: Doxycycline 100 mg Route: PO; bp 15:51 Follow up: Response: No adverse reaction bp 15:30 Drug: Bactrim (160 mg-800 mg (DS) 1 tablet Route: PO; bp 15:51 Follow up: Response: No adverse reaction bp 15:30 Drug: Tetanus-Diphtheria Toxoid Adult 0.5 ml {Herd Tester: [employer]. Exp: bp 11/04/2021. Lot #: [id number]. } Route: IM; Site: right deltoid; 15:51 Follow up: Response: No adverse reaction bp Outcome: 15:02 Discharge ordered by . lolita 15:52 Discharged to home via wheelchair, with family. bp 15:52 Condition: stable 15:52 Discharge instructions given to patient, family, Instructed on discharge instructions, follow up and referral plans. medication usage, wound care, Demonstrated understanding of instructions, follow-up care, medications, wound care, Prescriptions given X 2. 15:52 Patient left the ED. bp Signatures: Ynes Sotelo, Kalyan Moreira RN RN Kathy Bonilla RN RN [facility] Lavinia Rojas ag5 Corrections: (The following items were deleted from the chart) 15:49 14:30 Bactrim (160 mg-800 mg (DS) 1 tablet PO bp bp 15:49 14:30 Doxycycline 100 mg PO bp bp 15:50 14:30 Tetanus-Diphtheria Toxoid Adult 0.5 ml IM in right deltoid Herd Tester: [employer] bp Biologic Lot: [id number] Exp: 11/04/2021 bp
--- NOTE | 2020-08-07 15:02 | EDPHYS ---
Physician Documentation [facility] Name: Luz Elena Pacheco Age: 44 yrs Sex: Female : 1975 Arrival Date: 08/07/2020 Time: 14:42 Bed 8 Private MD: Monse Garcia R ED Physician Juancarlos Loyd HPI: 08/07 14:59 This 44 yrs old Female presents to ER via Wheelchair with complaints of Rat kb Bite. 15:00 The patient was bitten on the dorsum of right foot and lateral aspect of right knee and kb lateral aspect of right thigh, by a rat, in an unprovoked manner, at home. Onset: The symptoms/episode began/occurred last night. Animal information: Patient/Caregiver unable to provide information related to the animal. Secondary to the bite the patient reports an abrasion. Associated signs and symptoms: The patient has no apparent associated signs or symptoms. Severity of symptoms: At their worst the symptoms were moderate, in the emergency department the symptoms are unchanged. The patient has not experienced similar symptoms in the past. The patient has not recently seen a physician. Pt reports she was bit by a rat last night. States she didn't notice it was there until this morning. superficial bites to lateral aspect of right leg and right foot. No puncture wounds noted.. 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 - Social history:: Smoking status: Patient denies any tobacco usage or history of. ROS: 14:59 Constitutional: Negative for fever, chills, and weight loss, Cardiovascular: Negative kb for chest pain, palpitations, and edema, Respiratory: Negative for shortness of breath, cough, wheezing, and pleuritic chest pain, Abdomen/GI: Negative for abdominal pain, nausea, vomiting, diarrhea, and constipation. 14:59 Skin: Positive for rat bites. Exam: 14:59 Constitutional: This is a well developed, well nourished patient who is awake, alert, kb and in no acute distress. Head/Face: Normocephalic, atraumatic. Cardiovascular: Regular rate and rhythm with a normal S1 and S2. No gallops, murmurs, or rubs. Normal PMI, no JVD. No pulse deficits. Respiratory: Lungs have equal breath sounds bilaterally, clear to auscultation and percussion. No rales, rhonchi or wheezes noted. No increased work of breathing, no retractions or nasal flaring. Abdomen/GI: Soft, non-tender, with normal bowel sounds. No distension or tympany. No guarding or rebound. No evidence of tenderness throughout. 14:59 Skin: injury, bite(s), superficial, of the lateral aspect of right thigh, lateral aspect of right knee and dorsum of right foot. Vital Signs: 14:47 BP 147 / 87; Pulse 75; Resp 18 S; Temp 97.6(TE); Pulse Ox 98% on R/A; Weight 83.91 kg ca1 (R); Height 4 ft. (121.92 cm); Pain 0/10; 15:30 BP 132 / 79; Pulse 77; Resp 16; Temp 97.8; Pulse Ox 98% ; bp 14:47 Body Mass Index 56.45 (83.91 kg, 121.92 cm) ca1 14:47 no sensation from waist down ca1 MDM: 14:53 Patient medically screened. kb 14:59 Data reviewed: vital signs, nurses notes. Data interpreted: Pulse oximetry: on room air kb is 98 %. Interpretation: normal. Counseling: I had a detailed discussion with the patient and/or guardian regarding: the historical points, exam findings, and any diagnostic results supporting the discharge/admit diagnosis, the need for outpatient follow up, a family practitioner, to return to the emergency department if symptoms worsen or persist or if there are any questions or concerns that arise at home. 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 Exp: bp 11/04/2021. Lot #: [id number]. } Route: IM; Site: right deltoid; 15:51 Follow up: Response: No adverse reaction bp Disposition: 18:59 Co-signature as Attending Physician, Juancarlos Loyd MD I agree with the assessment and elias plan of care. Disposition: 08/07/20 15:02 Discharged to Home. Impression: Bitten by rat. - Condition is Stable. - Discharge Instructions: Animal Bite, [id number]. - Prescriptions for Doxycycline Hyclate 100 mg Oral Tablet - take 1 tablet by ORAL route every 12 hours; 20 tablet. Bactrim DS 800- 160 mg Oral Tablet - take 1 tablet by ORAL route every 12 hours for 10 days; 20 tablet. - Medication Reconciliation Form, Thank You Letter, Antibiotic Education, Prescription Opioid Use form. - Follow up: Private Physician; When: 2 - 3 days; Reason: Recheck today's complaints, Continuance of care, Re-evaluation by your physician. Follow up: Emergency Department; When: As needed; Reason: Worsening of condition. Signatures: Ynes Sotelo, SHAPER SETTER-C Juancarlos Perez MD MD cha Peltier, Brian, RN RN Kathy Bonilla RN RN ca1 Corrections: (The following items were deleted from the chart) 15:52 15:02 08/07/2020 15:02 Discharged to Home. Impression: Bitten by rat. Condition is bp Stable. Forms are Medication Reconciliation Form, Thank You Letter, Antibiotic Education, Prescription Opioid Use. Follow up: Private Physician; When: 2 - 3 days; Reason: Recheck today's complaints, Continuance of care, Re-evaluation by your physician. Follow up: Emergency Department; When: As needed; Reason: Worsening of condition. kb
[2020-08-07] MEDS ORDERED: SMZ./TMP. 800/160 MG TABLET ONE (15:24)
[2020-08-07] MEDS ORDERED: BACI/NEOMYCIN/POLY OINT 15GM TOP ONE (15:25)
[2020-08-07] MEDS ORDERED: DOXYCYCLINE 100 MG CAP PO ONE (15:25)
[2020-08-07] MEDS ORDERED: TETANUS & DIPHTHERIA TOX,ADULT 0.5 ML VIAL ONE (15:25)
[2020-08-07 16:02] VITALS: O2SAT 98
[2020-08-07 16:03] VITALS: BP 132/79; TEMP 97.8
== END 2020-08-07 15:52 | disposition home or self-care (01) ==
LOC: ER 14:41
DX: S91.351A Open bite, right foot, initial encounter (principal); S81.051A Open bite, right knee, initial encounter; S71.151A Open bite, right thigh, initial encounter; W53.11XA Bitten by rat, initial encounter; Y92.009 Unspecified place in unspecified non-institutional (private) residence as the place of occurrence of the external cause; Z23 Encounter for immunization
CPT/HCPCS: 90471; 90714; 99283

== ENCOUNTER 2021-07-30 12:58 | Inpatient (IN) | payer OTHER ==
[2021-07-30 14:01] LABS: Urine Blood Trace-intact (Negative); Urine Glucose Negative (Negative); Urine Protein 1+ (Negative); Urine Specific Gravity 1.015 (1.005-1.030)
--- NOTE | 2021-07-30 14:18 | RAD REPORT ---
EXAM DESCRIPTION: RAD - Chest Single View - 07/30/2021 1:55 pm CLINICAL HISTORY: COUGH Chest pain. COMPARISON: Chest Single View dated 10/30/2018; Chest Single View dated 10/28/2018; Chest Single View dated 07/06/2018; Chest Single View dated 07/04/2018 FINDINGS: Portable technique limits examination quality. Mild to moderate bilateral pulmonary opacities are present probably representing pulmonary infection/ viral infection. The heart is prominent in size. Right-sided shunt tubing is noted.
[2021-07-30 14:20] LABS: Absolute Lymphocytes (CBC) 1.1 K/uL (0.7-4.9); Hematocrit 44.4 % (36.0-45.0); Lymphocytes % 21.9 % (15.3-44.8); MPV 8.7 fL (7.6-11.3); RBC Red Blood Cell Count 6.03 M/uL (3.86-4.86)
[2021-07-30] MEDS ORDERED: NA CHLORIDE 0.9% 1,000 ML ONE (14:22)
[2021-07-30] MEDS ORDERED: CEFTRIAXONE 1000 MG/VIAL ONE (14:22)
[2021-07-30 14:28] LABS: Urine Amorphous Sediment 2+ /HPF (NONE SEEN); Urine Bacteria LOADED /HPF (<20); Urine Mucus HEAVY /HPF (NONE SEEN)
--- NOTE | 2021-07-30 15:14 | ER ---
Nurse's Notes [facility] [place], [place] Name: Luz Elena Pacheco Age: 45 yrs Sex: Female : 1975 Arrival Date: 07/30/2021 Time: 12:59 Bed 27 Private MD: Diagnosis: UTI/ Urinary tract infection, site not specified;Pneumonia, unspecified organism;Hypotension, unspecified Presentation: 07/30 13:08 Chief complaint: Patient states: Pt presents to ED via EMS for c/o cough, congestion, ab2 lethargy and decreased appetite. Pt states everyone at home is also sick. Denies any pain. Pt has hx spino bifida and is paralyzed from the waist down. Pt self caths at home. Coronavirus screen: Vaccine status: Patient reports receiving the 2nd dose of the covid vaccine. Client denies travel out of the [place] in the last 14 days. Client presents with at least one sign or symptom that may indicate coronavirus-19. Standard/surgical mask placed on the client. Provider contacted for isolation considerations. Ebola Screen: Patient negative for fever greater than or equal to 101.5 degrees Fahrenheit, and additional compatible Ebola Virus Disease symptoms Patient denies exposure to infectious person. Patient denies travel to an Ebola-affected area in the 21 days before illness onset. No symptoms or risks identified at this time. Initial Sepsis Screen: Does the patient meet any 2 criteria? No. Patient's initial sepsis screen is negative. Does the patient have a suspected source of infection? No. Patient's initial sepsis screen is negative. Risk Assessment: Do you want to hurt yourself or someone else? Patient reports no desire to harm self or others. Onset of symptoms is unknown. 13:08 Method Of Arrival: EMS: [facility] ab2 13:08 Acuity: ANASTASIIA 3 ab2 Triage Assessment: 13:12 General: Appears in no apparent distress. obese, unkempt, Behavior is calm, ab2 cooperative, appropriate for age. Pain: Denies pain. EENT: Reports nasal congestion nasal discharge. Neuro: No deficits noted. Level of Consciousness is awake, alert, Oriented to person, place, time, situation, Appropriate for age Paralysis. Cardiovascular: No deficits noted. Reports None Denies chest pain, shortness of breath, Heart tones S1 S2 present Patient's skin is warm and dry. Chest pain is denied. Respiratory: Reports shortness of breath cough that is Airway is patent Breath sounds are clear bilaterally. GI: Abdomen is obese, Bowel sounds present X 4 quads. Abdomen is tender to palpation in right upper quadrant and right lower quadrant Reports intolerance of fluids, intolerance of food. : Reports Self catherization for urine at home twice a day. :. Derm: No deficits noted. No signs and/or symptoms reported regarding the dermatologic system. Musculoskeletal: No deficits noted. No signs and/or symptoms reported regarding the musculoskeletal system. 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 - Social history:: Smoking status: Patient denies any tobacco usage or history of. - Family history:: not pertinent. - Hospitalizations: : No recent hospitalization is reported. Screenin:15 Abuse screen: Denies threats or abuse. Denies injuries from another. Nutritional ab2 screening: No deficits noted. Tuberculosis screening: No symptoms or risk factors identified. Fall Risk No fall in past 12 months (0 pts). Secondary diagnosis (15 points) No IV (0 pts). Ambulatory Aid- None/Bed Rest/Nurse Assist (0 pts). Gait- Normal/Bed Rest/Wheelchair (0 pts) Mental Status- Oriented to own ability (0 pts). Total Bradley Fall Scale indicates No Risk (0-24 pts). Assessment: 13:17 Reassessment: No changes from previously documented assessment. General: Appears in no ab2 apparent distress. obese, unkempt, Behavior is calm, cooperative, appropriate for age. Pain: Denies pain. Cardiovascular: Heart tones S1 S2 present Patient's skin is warm and dry. Respiratory: Airway is patent Breath sounds are clear. GI: No deficits noted. No signs and/or symptoms were reported involving the gastrointestinal system. Abdomen is obese. : No deficits noted. No signs and/or symptoms were reported regarding the genitourinary system. EENT: No deficits noted. No signs and/or symptoms were reported regarding the EENT system. Derm: No deficits noted. No signs and/or symptoms reported regarding the dermatologic system. Musculoskeletal: No deficits noted. No signs and/or symptoms reported regarding the musculoskeletal system. Vital Signs: 13:08 BP 92 / 60; Pulse 100; Resp 17; Temp 97.8(O); Pulse Ox 100% on R/A; Weight 95.25 kg; ab2 Height 5 ft. 2 in. (157.48 cm); Pain 0/10; 14:14 BP 114 / 79; Pulse 78; Resp 17; Pulse Ox 98% on 2 lpm NC; ab2 15:27 BP 105 / 72; Pulse 96; Resp 17; Pulse Ox 100% on 2 lpm NC; Pain 0/10; ab2 16:54 BP 93 / 75; Pulse 85; Resp 16; Pulse Ox 99% on 2 lpm NC; ab2 17:30 BP 109 / 77; Pulse 98; Resp 16; Pulse Ox 100% on 2 lpm NC; Pain 0/10; ab2 18:45 BP 101 / 81; Pulse 97; Resp 16; Pulse Ox 98% on 2 lpm NC; Pain 0/10; ab2 19:21 BP 109 / 79; Pulse 100; Resp 16; Pulse Ox 100% on 2 lpm NC; Pain 0/10; ab2 20:00 BP 101 / 63; Pulse 95; Resp 18; Pulse Ox 99% on 2 lpm NC; Pain 0/10; ab2 21:00 BP 101 / 86; Pulse 96; Resp 16; Pulse Ox 97% on 2 lpm NC; Pain 0/10; ab2 21:44 BP 105 / 94; Pulse 96; Resp 18; Pulse Ox 100% on 2 lpm NC; Pain 0/10; ab2 13:08 Body Mass Index 38.41 (95.25 kg, 157.48 cm) ab2 ED Course: 12:59 Patient arrived in ED. ds1 13:01 Bill Quiroz is Primary Nurse. ab2 13:03 Yevgeniy Nicole MD is Attending Physician. rn 13:11 Triage completed. ab2 13:15 Arm band placed on right wrist. ab2 13:16 Patient has correct armband on for positive identification. Bed in low position. Call ab2 light in reach. Side rails up X2. Adult w/ patient. Family notified that patient is in ED. Mother at bedside. 13:16 No provider procedures requiring assistance completed. ab2 13:47 Straight cath inserted, using sterile technique, Returned Patient tolerated well. ab2 13:54 XRAY Chest (1 view) In Process Unspecified. EDMS 14:01 COVID-19/FLU A+B (Document "Date of Onset" if Symptomatic) Sent. ab2 14:02 Urine Culture Sent. ab2 14:02 Urine Microscopic Only Sent. ab2 14:10 Inserted saline lock: 20 gauge in left hand, using aseptic technique. Blood collected. ic1 14:12 CBC with Automated Diff Sent. ab2 14:12 COVID-19/FLU A+B (Document "Date of Onset" if Symptomatic) Sent. ab2 14:12 Lactate Sent. ab2 14:12 Procalcitonin Sent. ab2 14:12 Blood Culture Adult (2) Sent. ab2 14:12 Urine Culture Sent. ab2 14:12 Urine Microscopic Only Sent. ab2 14:12 CBC with Diff Sent. ab2 14:12 Basic Metabolic Panel Sent. ab2 15:12 Spencer Nicole MD is Hospitalizing Provider. rn 21:50 Report given to Pasquale TOMAS on [employer]. ab2 Administered Medications: 14:13 CANCELLED (Duplicate Order): NS 0.9% 1000 ml IV at 1000 ml once rn 14:26 Drug: NS 0.9% 1000 ml Route: IV; Rate: 1000 ml; Site: left hand; ab2 14:26 Drug: Rocephin (cefTRIAXone) 1 grams Route: IV; Rate: calculated rate; Site: right hand;ab2 Outcome: 15:13 Decision to Hospitalize by Provider. rn 21:59 Patient left the ED. ab2 Signatures: Dispatcher [facility] Marla Bates ds1 Yevgeniy Nicole MD MD rn Creggett, Iesha, RN RN ic1 Bill Quiroz ab2 Corrections: (The following items were deleted from the chart) 21:01 15:27 BP 105 / 72; Pulse 96bpm; Resp 17bpm; Pulse Ox 100% RA; Pain 0/10; ab2 ab2 21:01 16:54 BP 93 / 75; Pulse 85bpm; Resp 16bpm; Pulse Ox 99% RA; ab2 ab2 21:01 17:30 BP 109 / 77; Pulse 98bpm; Resp 16bpm; Pulse Ox 100% RA; Pain 0/10; ab2 ab2 21:01 18:45 BP 101 / 81; Pulse 97bpm; Resp 16bpm; Pulse Ox 98% RA; Pain 0/10; ab2 ab2
--- NOTE | 2021-07-30 15:14 | EDPHYS ---
Physician Documentation [facility] Name: Luz Elena Pacheco Age: 45 yrs Sex: Female : 1975 Arrival Date: 07/30/2021 Time: 12:59 Bed 27 Private MD: ED Physician Yevgeniy Nicole HPI: 07/30 13:15 This 45 yrs old Female presents to ER via EMS with complaints of Nausea and generalized rn weakness. 13:15 Patient reports he got sick recently, they got better but she has not. Reports rn generalized weakness and fatigue, nausea but no vomiting. Positive for diarrhea. Negative for abdominal pain. Reports has spina bifida and has to self cath twice a day. Denies history of recurrent urine infections.. Onset: The symptoms/episode began/occurred 1 week(s) ago. Severity of symptoms: At their worst the symptoms were moderate in the emergency department the symptoms are unchanged. The patient has not experienced similar symptoms in the past. The patient has not recently seen a physician. 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 - Social history:: Smoking status: Patient denies any tobacco usage or history of. - Family history:: not pertinent. - Hospitalizations: : No recent hospitalization is reported. ROS: 13:15 Constitutional: Positive for subjective fever and chills Eyes: Negative for injury, rn pain, redness, and discharge, Neck: Negative for injury, pain, and swelling, Cardiovascular: Negative for chest pain, palpitations, and edema, Respiratory: Negative for shortness of breath, wheezing, and pleuritic chest pain, Abdomen/GI: Positive for nausea, negative for abdominal pain : Negative for injury, bleeding, discharge, and swelling, MS/Extremity: Negative for injury and deformity, Skin: Negative for injury, rash, and discoloration, Neuro: Negative for headache, numbness, tingling, and seizure. Exam: 13:15 Constitutional: This is a well developed, well nourished patient who is awake, alert, rn and in no acute distress. Head/Face: Normocephalic, atraumatic. Eyes: Periorbital areas with no swelling, redness, or edema. ENT: Dry mucous membranes Neck: Trachea midline, no masses palpated, no meningismus Cardiovascular: Regular rate and rhythm. No pulse deficits. Respiratory: Speaking full sentences, unlabored. No increased work of breathing, no retractions or nasal flaring. Abdomen/GI: Soft, non-tender, nondistended Skin: Warm, weeping bilateral lower ext. MS/ Extremity: Pulses equal, no cyanosis. Neurovascular intact. Full, normal range of motion. Equal circumference. Neuro: Awake and alert, GCS 15, oriented to person, place, time, and situation. Vital Signs: 13:08 BP 92 / 60; Pulse 100; Resp 17; Temp 97.8(O); Pulse Ox 100% on R/A; Weight 95.25 kg; ab2 Height 5 ft. 2 in. (157.48 cm); Pain 0/10; 14:14 BP 114 / 79; Pulse 78; Resp 17; Pulse Ox 98% on 2 lpm NC; ab2 15:27 BP 105 / 72; Pulse 96; Resp 17; Pulse Ox 100% on 2 lpm NC; Pain 0/10; ab2 16:54 BP 93 / 75; Pulse 85; Resp 16; Pulse Ox 99% on 2 lpm NC; ab2 17:30 BP 109 / 77; Pulse 98; Resp 16; Pulse Ox 100% on 2 lpm NC; Pain 0/10; ab2 18:45 BP 101 / 81; Pulse 97; Resp 16; Pulse Ox 98% on 2 lpm NC; Pain 0/10; ab2 19:21 BP 109 / 79; Pulse 100; Resp 16; Pulse Ox 100% on 2 lpm NC; Pain 0/10; ab2 20:00 BP 101 / 63; Pulse 95; Resp 18; Pulse Ox 99% on 2 lpm NC; Pain 0/10; ab2 21:00 BP 101 / 86; Pulse 96; Resp 16; Pulse Ox 97% on 2 lpm NC; Pain 0/10; ab2 21:44 BP 105 / 94; Pulse 96; Resp 18; Pulse Ox 100% on 2 lpm NC; Pain 0/10; ab2 13:08 Body Mass Index 38.41 (95.25 kg, 157.48 cm) ab2 MDM: 13:03 Patient medically screened. rn 15:12 Differential Diagnosis sepsis, flu, COVID, UTI, dehydration. Data reviewed: vital rn signs, nurses notes, lab test result(s), EKG, radiologic studies, plain films, and as a result, I will admit patient. Counseling: I had a detailed discussion with the patient and/or guardian regarding: the historical points, exam findings, and any diagnostic results supporting the discharge/admit diagnosis, lab results, radiology results, the need for further work-up and treatment in the hospital. Medical screen evaluation completed. EMTALA emergency medical condition absent. Response to treatment: the patient's symptoms have mildly improved after treatment, and as a result, I will admit patient. Admission orders: after a detailed discussion of the patient's condition and case, the admit orders are written by me. 07/30 13:10 Order name: CBC with Diff 07/30 13:10 Order name: Basic Metabolic Panel 07/30 13:10 Order name: Urine Culture 07/30 13:10 Order name: Urine Microscopic Only; Complete Time: 15:11 07/30 13:10 Order name: Blood Culture Adult (2) 07/30 13:10 Order name: Procalcitonin; Complete Time: 08:16 07/30 13:10 Order name: Lactate; Complete Time: 15:11 07/30 13:10 Order name: COVID-19/FLU A+B (Document "Date of Onset" if Symptomatic); Complete Time: rn 15:48 07/30 13:10 Order name: CBC with Automated Diff; Complete Time: 15:11 [facility] 07/30 13:11 Order name: XRAY Chest (1 view); Complete Time: 14:21 07/30 14:01 Order name: Urine Dipstick-Ancillary; Complete Time: 14:06 [facility] 07/30 16:27 Order name: Chest Abdomen Pelvis W Cont [facility] 07/30 16:27 Order name: Head Brain Wo Cont [facility] 07/30 13:10 Order name: IV Start; Complete Time: 14:12 07/30 13:10 Order name: Urine Dipstick-Ancillary (obtain specimen); Complete Time: 14:02 07/30 14:27 Order name: Labs - recollect needed: BMP, procal; Complete Time: 16:08 07/30 16:28 Order name: CONS Physician Consult EDMS Administered Medications: 14:13 CANCELLED (Duplicate Order): NS 0.9% 1000 ml IV at 1000 ml once rn 14:26 Drug: NS 0.9% 1000 ml Route: IV; Rate: 1000 ml; Site: left hand; ab2 14:26 Drug: Rocephin (cefTRIAXone) 1 grams Route: IV; Rate: calculated rate; Site: right hand;ab2 Disposition Summary: 07/30/21 15:13 Hospitalization Ordered Hospitalization Status: Inpatient Admission rn Provider: Spencer Nicole rn Location: Telemetry/MedSurg (Inpatient) rn Condition: Stable rn Problem: new rn Symptoms: have improved rn Bed/Room Type: Standard rn Room Assignment: [id number](07/30/21 19:53) cg Diagnosis - UTI/ Urinary tract infection, site not specified rn - Pneumonia, unspecified organism rn - Hypotension, unspecified rn Forms: - Medication Reconciliation Form rn - SBAR form rn Signatures: Dispatcher [employer] EDMariely Ramos RN RN Yevgeniy Nicole MD MD rn Garcia, Cindy, RN RN Bill Quiroz ab2 Corrections: (The following items were deleted from the chart) 14:13 14:06 NS 0.9% 1000 ml IV at 1000 ml once ordered. rn rn 16:25 13:15 Constitutional: This is a well developed, well nourished patient who is awake, rn alert, and in no acute distress. Head/Face: Normocephalic, atraumatic. Eyes: Periorbital areas with no swelling, redness, or edema. ENT: Dry mucous membranes Neck: Trachea midline, no masses palpated, no meningismus Cardiovascular: Regular rate and rhythm. No pulse deficits. Respiratory: Speaking full sentences, unlabored. No increased work of breathing, no retractions or nasal flaring. Abdomen/GI: Soft, non-tender, nondistended Skin: Warm, dry with normal turgor. Normal color with no rashes, no lesions, and no evidence of cellulitis. MS/ Extremity: Pulses equal, no cyanosis. Neurovascular intact. Full, normal range of motion. Equal circumference. Neuro: Awake and alert, GCS 15, oriented to person, place, time, and situation. rn 19:53 15:13 rn
[2021-07-30 15:31] LABS: SARS-COV-2 RT PCR POSITIVE (NEGATIVE)
--- NOTE | 2021-07-30 16:38 | P.HP ---
Certification for Inpatient Patient admitted to: Inpatient With expected LOS: >2 Midnights Practitioner: I am a practitioner with admitting privileges, knowledge of patient current condition, hospital course, and medical plan of care. Services: Services provided to patient in accordance with Admission requirements found in Title 42 Section 412.3 of the Code of Federal Regulations Patient History Date of Service: 07/30/21 Reason for admission: COVID-19 pneumonia, UTI History of Present Illness: 45yo F, PMH: Spina bifida s/p DIRECTOR OF CAMPUS RECREATION shunt, Chronic Lymphedema, urinary incontinence who straight caths at home. Presents to ED due to 1 week of feeling ill. She has been feeling very tired/sleepy, having some diarrhea, febrile to 102 last night, with associated cough, shortness of breath, abdominal pain. She says her whole family and that she lives with have been having similar symptoms, however they all improved, while she has been getting worse. Family member at the bedside states that she became concerned due to the amount of sleepiness. Patient is currently awake/alert/oriented x3. Patient also reports 2 months of progressively worsening right breast pain. She reports significant swelling 2 months ago, and that has improved, however she feels the right/lateral side is sick, the entire breast has been tender, and she has had a few days of nipple discharge. She re ports abdominal pain for a few days as well, feels pain all over, nothing in particular seems to worsen or alleviate this pain. In the ED, she was found to have bacteriuria, chest x-ray showed bilateral opacities. She was found to be Covid positive. ER physician requested admission for further management of her COVID-19 pneumonia and UTI. Received [employer] summer 2020 Allergies Clindamycin Allergy (Mild, Uncoded 07/05/18 00:05) Hives/Rash Home Medications: Mirtazapine [Remeron*] 1 tab PO BEDTIME 10/28/18 Ferrous Sulfate [Iron] 325 mg PO BID #60 tablet 11/02/18 Folic Acid 1 mg PO DAILY #90 tablet 11/02/18 Levofloxacin [Levaquin] 500 mg PO DAILY #11 tablet 11/02/18 Silver Sulfadiazine Crm [Silvadene*] 1 appl TOP DAILY #1 jar 11/02/18 Vancomycin HCl in Dextrose 5 % [Vancomycin 1.5 Gram/250 ml-D5w] 1.5 gm IV Q18H 10 Days plast..bag 11/02/18 - Past Medical/Surgical History Diabetic: No -: spina bifida -: depression -: shunts -: back surgery (spina bifida) -: bilateral leg surgery - Family History Father -: Heart disease, Hypertension, Diabetes - Social History Smoking Status: Never smoker Alcohol use: No CD- Drugs: No Caffeine use: Yes Place of Residence: Home Review of Systems 10-point ROS is otherwise unremarkable Physical Examination - Physical Exam General: Alert, In no apparent distress, Oriented x3 HEENT: Mucous membr. moist/pink, Sclerae nonicteric Respiratory: Diminished (on 4L NC), Crackles/rales Cardiovascular: Regular rate/rhythm, Edema (b/l 2+) Capillary refill: <2 Seconds Gastrointestinal: Soft and benign, Non-distended, Tenderness (diffuse) Integumentary: Rash(es) (R breast intertrigo), Tenderness/swelling (R breast, tender with palpation throughout, lateral breast with thickening, tender, no erythema, no nipple discharge noted), Other (Bilateral chronic lymphedema with drainage, R>L ) Neurological: Normal affect, Other (Spina bifida) - Studies Laboratory Data (last 24 hrs) 07/30/21 14:00: WBC 5.20, Hgb 12.8, Hct 44.4, Plt Count 134 L Assessment and Plan - Advance Directives Does patient have a Living Will: No Does patient have a Durable POA for Healthcare: Yes Physician Review Additional Text: Problem list Acute hypoxemic respiratory failure secondary to COVID-19 pneumonia UTI, history of urinary incontinence, straight caths Spina bifida, h/o DIRECTOR OF CAMPUS RECREATION shunt Right breast swelling/tenderness Right breast intertrigo Abdominal pain Steroids, oxygen supplementation, pulmonology consults for COVID-19 pneumonia Rocephin given in ED, follow-up urine cultures, blood cultures. Patient does not appear septic. Is lownormal blood pressure, responded well to IV fluids Minimize IV fluid usage given significant bilateral lower extremity lymphedema Consult wound care CT head/chest/abdomen/pelvis, evaluate DIRECTOR OF CAMPUS RECREATION shunt, right breast, abdominal pain Denies any recent worsening of GERD/heartburn Right breast: Concern for cancer vs infectious, however no significant erythema. No family history of breast cancer Topical antifungal for intertrigo Drake catheter placement for accurate I's and O's VTE: Lovenox Code full Dispo: Anticipate hospitalization 3-4 days, dc home Time Spent Managing Pts Care (In Minutes): 60
[2021-07-30] MEDS ORDERED: ONDANSETRON 4 MG/2 ML VIAL IV PRN (21:52)
[2021-07-30] MEDS: NYSTATIN PWDR 100000 UNIT/GM TOP SCH (21:52)
[2021-07-30] MEDS ORDERED: ALBUTEROL 2.5 MG/3 ML NEB SOL NEB PRN (21:52)
[2021-07-30] MEDS: METHYLPREDNISOLONE 40 MG INJ IV SCH (23:19)
[2021-07-30 23:41] VITALS: BMI 38.4
[2021-07-31] MEDS ORDERED: RIVAROXABAN 10 MG TABLET PO SCH (04:29)
[2021-07-31 07:15] LABS: ALT/SGPT 11 U/L (12-78); AST/SGOT 23 U/L (15-37); Albumin 2.4 g/dL (3.4-5.0); Alkaline Phosphatase 76 U/L (45-117); BUN Blood Urea Nitrogen 18 mg/dL (7-18); Bicarbonate 25 mmol/L (21-32); Bilirubin Total 0.3 mg/dL (0.2-1.0); C-Reactive Protein 26.1 mg/L (<3.00); Ferritin 30.5 ng/mL (8-388); Glucose Level 103 mg/dL (74-106); Potassium 4.4 mmol/L (3.5-5.1); Protein, Total 6.7 g/dL (6.4-8.2); Sodium Level 138 mmol/L (136-145)
[2021-07-31 07:44] LABS: Absolute Lymphocytes (CBC) 0.5 K/uL (0.7-4.9); Hematocrit 43.9 % (36.0-45.0); Lymphocytes % 7.6 % (15.3-44.8); MPV 8.7 fL (7.6-11.3); RBC Red Blood Cell Count 5.88 M/uL (3.86-4.86)
[2021-07-31] MEDS ORDERED: INFLUENZA VACCINE (for 6+ mo) 0.5 ML DOSE IMVAC ONE (08:00)
--- NOTE | 2021-07-31 08:49 | RAD REPORT ---
EXAM DESCRIPTION: CT - Head Brain Wo Cont - 07/31/2021 7:36 am CLINICAL HISTORY: EVAL THERAPEUTIC MENTOR SHUNT Headache, drowsiness COMPARISON: Head Brain Wo Cont dated 06/16/2020; Head Brain Wo Cont dated 03/15/2017 TECHNIQUE: All CT scans are performed using dose optimization technique as appropriate and may inclu de automated exposure control or mA/KV adjustment according to patient size. FINDINGS: Right-sided THERAPEUTIC MENTOR shunt is again seen terminating in the right frontal lobe region, unchanged since study. Configuration and size of the ventricles appears essentially stable as well since and 2016 prior studies.No acute bleed, midline shift or other acute abnormalities. Posterior f adrián fullness with effacement of the basal cisterns remains unchanged. Mild fluid is present in the sphenoid sinuses. The paranasal sinuses and mastoids are otherwise clear . Right-sided calvarial defect again seen. IMPRESSION: No significant interval change has occurred since 2019 comparative examination. No hydr ocephalus or acute process seen.
[2021-07-31] MEDS ORDERED: ENOXAPARIN 40 MG/0.4 ML SQ SCH (09:00)
--- NOTE | 2021-07-31 09:09 | RAD REPORT ---
EXAM DESCRIPTION: CT - Chest Abd Pelvis Wo Con - 07/31/2021 7:29 am CLINICAL HISTORY: Chest and abdomen pain. UTI COMPARISON: No comparisons TECHNIQUE: Limited noncontrast study was performed. All CT scans are performed using dose optimization technique as appropriate and may include automated exposure control or mA/KV adjustment according to patient size. FINDINGS: Moderate bilateral pulmonary opacities are present which may represent pulmonary edema or pneumonia.Small bilateral pleural effusions are present, slightly greater on the right.No intrathorac ic adenopathy. The liver, spleen, pancreas, adrenal glands and right kidney are within normal limits. Highly atrophi c left kidney with 12 mm stone present. WET PROCESS MILLER HEAD ASSISTANT shunt is present in the abdomen and coils in the pelvis with mild free fluid present. Mild anasarc a also noted. No pathologic lymphadenopathy in the abdomen or pelvis. Quite severe scoliosis noted. IMPRESSION: Bilateral pulmonary opacities may represent pulmonary edema/ volume overload or underlyi ng pulmonary infection.
[2021-07-31 09:39] LABS: Anisocytosis 1+; Blood Morphology Comment NOTED (NOT SEEN); Hypochromasia 1+; Platelet Estimate ADEQ; Poikilocytosis SLIGHT; Polychromasia SLIGHT
[2021-07-31] MEDS: CEFTRIAXONE 1,000 MG in NA CHLORIDE 0.9% 50 ML IVPB SCH (09:55)
[2021-07-31] MEDS: METHYLPREDNISOLONE 40 MG INJ IV SCH ×2 (09:55→20:15)
[2021-07-31] MEDS: NYSTATIN PWDR 100000 UNIT/GM TOP SCH ×2 (09:58→20:16)
[2021-07-31] MEDS: RIVAROXABAN 20 MG TABLET PO SCH (17:16)
--- NOTE | 2021-07-31 17:59 | P.PN ---
Subjective Date of Service: 07/31/21 Chief Complaint: COVID-19 pneumonia, UTI Complaining of intermittent shortness of breath. Afebrile. SaO2 is 100% on 1 L oxygen by nasal cannula. Physical Examination - Vital Signs Temperature: 97.4 F Blood Pressure: 116/77 Pulse: 110 Respirations: 16 Pulse Ox (%): 98 - Physical Exam General: Alert, In no apparent distress, Oriented x3, Obese HEENT: Mucous membr. moist/pink Neck: JVD not distended Respiratory: Other (Nonlabored breathing) Cardiovascular: Edema (Bilateral legs, right breast.) Gastrointestinal: Soft and benign, Non-distended, No tenderness Integumentary: Rash(es) (Erythematous rash under right breast.) Neurological: Normal speech, Normal strength at 5/5 x4 extr Lymphatics: Other (Bilateral lower extremity lymphedema) - Studies Laboratory Data (last 24 hrs) 07/30/21 14:00: Sodium Cancelled, Potassium Cancelled, BUN Cancelled, Creatinine Cancelled, Glucose Cancelled Assessment And Plan - Plan Problem list Acute hypoxemic respiratory failure secondary to COVID-19 pneumonia UTI, history of urinary incontinence, straight caths Spina bifida, h/o ORGAN TEACHER shunt Right breast swelling/tenderness Right breast intertrigo Abdominal pain Continue steroids, oxygen supplementation. Patient with 100% FiO2 on 1 L oxygen by nasal cannula. I believe she can be weaned off oxygen. Rocephin given in ED. urine culture is pending. Blood cultures: No growth. Patient blood pressure is soft. Consult wound care input appreciated. Lymphedema wrap applied to both legs. CT head/chest/abdomen/pelvis, evaluate ORGAN TEACHER shunt, right breast: Unremarkable. Right breast swelling likely secondary to edema. She has erythema under the left breast-could be fungal infection versus cellulitis. Topical antifungal for intertrigo Drake catheter placement for accurate I's and O's. Treat edema with Lasix.
[2021-08-01] MEDS ORDERED: NA CHLORIDE 0.9% 250 ML IV ONE (06:14)
[2021-08-01 06:15] LABS: Absolute Lymphocytes (CBC) 0.5 K/uL (0.7-4.9); Hematocrit 42.1 % (36.0-45.0); Lymphocytes % 9.6 % (15.3-44.8); MPV 8.5 fL (7.6-11.3); RBC Red Blood Cell Count 5.63 M/uL (3.86-4.86)
[2021-08-01 06:59] LABS: White Blood Cell Scan OK (OK)
[2021-08-01 07:00] LABS: Anisocytosis 1+; Blood Morphology Comment NOTED (NOT SEEN)
[2021-08-01 07:01] LABS: Hypochromasia 1+
[2021-08-01 07:03] LABS: Platelet Estimate DECR
[2021-08-01] MEDS: CEFTRIAXONE 1,000 MG in NA CHLORIDE 0.9% 50 ML IVPB SCH (08:12)
[2021-08-01] MEDS: METHYLPREDNISOLONE 40 MG INJ IV SCH ×2 (08:14→20:10)
[2021-08-01] MEDS: NYSTATIN PWDR 100000 UNIT/GM TOP SCH ×2 (08:14→20:10)
[2021-08-01 08:40] LABS: ALT/SGPT 11 U/L (12-78); Albumin 2.4 g/dL (3.4-5.0); Alkaline Phosphatase 72 U/L (45-117); BUN Blood Urea Nitrogen 17 mg/dL (7-18); Bicarbonate 23 mmol/L (21-32); Bilirubin Total 0.4 mg/dL (0.2-1.0); Glucose Level 130 mg/dL (74-106); Protein, Total 6.4 g/dL (6.4-8.2); Sodium Level 139 mmol/L (136-145)
[2021-08-01 08:47] LABS: Potassium 5.1 mmol/L (3.5-5.1)
[2021-08-01 08:48] LABS: AST/SGOT 24 U/L (15-37)
[2021-08-01] MEDS: SILVER SULFADIAZINE 1% 50 GM TOP SCH (09:00)
--- NOTE | 2021-08-01 16:10 | P.PN ---
Subjective Date of Service: 08/01/21 Chief Complaint: COVID-19 pneumonia, UTI Patient has no new complaints. She has been afebrile. She feels her right breast swelling is improving. Physical Examination - Vital Signs Temperature: 97 F Blood Pressure: 114/72 Pulse: 103 Respirations: 18 Pulse Ox (%): 96 - Physical Exam General: In no apparent distress, Oriented x3 HEENT: Mucous membr. moist/pink Neck: JVD not distended Respiratory: Clear to auscultation bilaterally, Other (Nonlabored breathing) Cardiovascular: No edema, Normal S1 S2, Other (Tachycardia) Gastrointestinal: Soft and benign, Non-distended, No tenderness Musculoskeletal: No swelling Integumentary: No cyanosis Neurological: Other (No focal motor deficit.) Assessment And Plan - Plan Problem list Acute hypoxemic respiratory failure secondary to COVID-19 pneumonia UTI, history of urinary incontinence, straight caths Spina bifida, h/o MECHANICAL INSPECTOR shunt Right breast swelling/tenderness Right breast intertrigo Abdominal pain Continue steroids, oxygen supplementation. High SaO2 on 1 L oxygen by nasal cannula. She can be weaned off oxygen. Rocephin given in ED. UA suggest UTI . Follow urine culture. Blood cultures: No growth. Continue IV Rocephin. Patient blood pressure is soft. Patient briefly hypotensive this morning and given 250 mill bolus normal saline. Hold Lasix Wound care input appreciated. Lymphedema wrap applied to both legs. CT head/chest/abdomen/pelvis, evaluate MECHANICAL INSPECTOR shunt, right breast: Unremarkable. Right breast swelling likely secondary to edema. She has erythema under the left breast-could be fungal infection versus cellulitis. Topical antifungal for intertrigo Drake catheter placement for accurate I's and O's. Physician Review Additional Text: Problem list Acute hypoxemic respiratory failure secondary to COVID-19 pneumonia UTI, history of urinary incontinence, straight caths Spina bifida, h/o MECHANICAL INSPECTOR shunt Right breast swelling/tenderness Right breast intertrigo Abdominal pain Steroids, oxygen supplementation, pulmonology consults for COVID-19 pneumonia Rocephin given in ED, follow-up urine cultures, blood cultures. Patient does not appear septic. Is lownormal blood pressure, responded well to IV fluids Minimize IV fluid usage given significant bilateral lower extremity lymphedema Consult wound care CT head/chest/abdomen/pelvis, evaluate MECHANICAL INSPECTOR shunt, right breast, abdominal pain Denies any recent worsening of GERD/heartburn Right breast: Concern for cancer vs infectious, however no significant erythema. No family history of breast cancer Topical antifungal for intertrigo Drake catheter placement for accurate I's and O's VTE: Lovenox Code full Dispo: Anticipate hospitalization 3-4 days, dc home
[2021-08-01] MEDS: RIVAROXABAN 20 MG TABLET PO SCH (16:33)
[2021-08-02 04:22] LABS: Absolute Lymphocytes (CBC) 0.4 K/uL (0.7-4.9); MPV 8.5 fL (7.6-11.3); RBC Red Blood Cell Count 5.56 M/uL (3.86-4.86)
[2021-08-02 04:38] LABS: BUN Blood Urea Nitrogen 15 mg/dL (7-18); Bicarbonate 29 mmol/L (21-32); Glucose Level 141 mg/dL (74-106); Potassium 4.3 mmol/L (3.5-5.1); Sodium Level 138 mmol/L (136-145)
[2021-08-02] MEDS: METHYLPREDNISOLONE 40 MG INJ IV SCH ×2 (09:20→21:49)
[2021-08-02] MEDS: CEFTRIAXONE 1,000 MG in NA CHLORIDE 0.9% 50 ML IVPB SCH (09:20)
[2021-08-02] MEDS: NYSTATIN PWDR 100000 UNIT/GM TOP SCH ×2 (09:33→21:00)
[2021-08-02] MEDS: VANCOMYCIN 1.75 GM in NA CHLORIDE 0.9% 500 ML IVPB SCH ×2 (11:00→21:49)
--- NOTE | 2021-08-02 13:59 | P.PN ---
Subjective Date of Service: 08/02/21 Chief Complaint: COVID-19 pneumonia, UTI Patient was drowsy yesterday but very much awake today, oriented x4. She has been afebrile. Physical Examination - Vital Signs Temperature: 96.9 F Blood Pressure: 115/76 Pulse: 95 Respirations: 18 Pulse Ox (%): 97 - Physical Exam General: Alert, In no apparent distress, Oriented x3 HEENT: Mucous membr. moist/pink Neck: JVD not distended Respiratory: Clear to auscultation bilaterally, Normal air movement Cardiovascular: Other (Lymphedema bilateral legs), Edema (Right breast.) Gastrointestinal: Soft and benign, Non-distended Musculoskeletal: Swelling (Bilateral legs) Integumentary: Other (Erythematous papular rash beneath right breast.) Neurological: Other (Moves all limbs) Assessment And Plan - Plan Problem list Acute hypoxemic respiratory failure secondary to COVID-19 pneumonia UTI, history of urinary incontinence, straight caths Spina bifida, h/o METAL TRADES INSTRUCTOR shunt Right breast swelling/tenderness Right breast intertrigo Abdominal pain Continue steroids, oxygen supplementation. Wean off oxygen. Follow urine culture- GNR and coagulase positive staph. Blood cultures: No growth. Continue IV Rocephin. Added IV vancomycin. Patient blood pressure has improved and currently stable. Patient briefly hypotensive and given 250 mill bolus normal saline. Wound care input appreciated. Lymphedema wrap applied to both legs. CT head/chest/abdomen/pelvis to evaluate METAL TRADES INSTRUCTOR shunt and right breast: Unremarkable. Right breast swelling likely secondary to edema. She has erythema under the left breast-could be fungal infection versus cellulitis. Topical antifungal for intertrigo Drake catheter placement for accurate I's and O's. Obtain CT head to further assess her V-P shunt given a transient episode of drowsiness.
[2021-08-02] MEDS: SILVER SULFADIAZINE 1% 50 GM TOP SCH (14:00)
--- NOTE | 2021-08-02 15:32 | RAD REPORT ---
EXAM DESCRIPTION: CT - Head Brain Wo Cont - 08/02/2021 3:16 pm CLINICAL HISTORY: AMS. Spina bifida, h/o MARKET RESEARCH EXECUTIVE shunt COMPARISON: Head Brain Wo Cont dated 07/31/2021; Head Brain Wo Cont dated 06/16/2020 TECHNIQUE: All CT scans are performed using dose optimization technique as appropriate and may inclu de automated exposure control or mA/KV adjustment according to patient size. FINDINGS: No intracranial hemorrhage, hydrocephalus or extra-axial fluid collection.No areas of brai n edema or evidence of midline shift. Right parietal ventriculostomy. The tip terminates in the front al horn of the right lateral ventricle. This is unchanged. Ventricular configuration is unchanged. The paranasal sinuses and mastoids are clear. The calvarium is intact. IMPRESSION: No acute intracranial abnormality. Right parietal ventriculostomy with similar ventricu lar configuration. No hydrocephalus.
[2021-08-02] MEDS ORDERED: VANCOMYCIN 1 GM in NA CHLORIDE 0.9% 250 ML IVPB SCH (21:00)
[2021-08-02] MEDS: MIRTAZAPINE 15 MG TAB PO SCH (21:49)
[2021-08-03 06:19] LABS: Absolute Lymphocytes (CBC) 0.3 K/uL (0.7-4.9); Hematocrit 38.9 % (36.0-45.0); Lymphocytes % 8.1 % (15.3-44.8); MPV 8.2 fL (7.6-11.3); RBC Red Blood Cell Count 5.22 M/uL (3.86-4.86)
[2021-08-03 06:38] LABS: BUN Blood Urea Nitrogen 20 mg/dL (7-18); Bicarbonate 28 mmol/L (21-32); Glucose Level 125 mg/dL (74-106); Potassium 4.3 mmol/L (3.5-5.1); Sodium Level 142 mmol/L (136-145)
[2021-08-03 09:50] LABS: Anisocytosis 1+; Blood Morphology Comment NOTED (NOT SEEN); Platelet Estimate DECR
[2021-08-03 09:51] LABS: Hypochromasia 1+; Ovalocytes 1+; Polychromasia 1+
[2021-08-03] MEDS: METHYLPREDNISOLONE 40 MG INJ IV SCH ×2 (10:49→22:12)
[2021-08-03] MEDS: FOLIC ACID 1 MG TABLET PO SCH (10:49)
[2021-08-03] MEDS: MIRTAZAPINE 15 MG TAB PO SCH ×2 (10:49→22:12)
[2021-08-03] MEDS: CEFTRIAXONE 1,000 MG in NA CHLORIDE 0.9% 50 ML IVPB SCH (10:49)
[2021-08-03] MEDS: NYSTATIN PWDR 100000 UNIT/GM TOP SCH ×2 (10:51→21:00)
[2021-08-03] MEDS: SILVER SULFADIAZINE 1% 50 GM TOP SCH (10:51)
[2021-08-03] MEDS: VANCOMYCIN 1.75 GM in NA CHLORIDE 0.9% 500 ML IVPB SCH ×2 (10:59→22:12)
--- NOTE | 2021-08-03 12:15 | P.PN ---
Subjective Date of Service: 08/03/21 Chief Complaint: COVID-19 pneumonia, UTI The patient is a 45-year-old female with a past medical history of spina bifida, chronic lipidemia, and urinary incontinence who straight caths at home who presented to the emergency department secondary to feeling unwell. History difficult to obtain from patient as such all history obtained via chart review. Per chart review the patient had been feeling unwell for about a week prior to admission. Associated symptoms included fatigue, cough, shortness of breath, abdominal pain, diarrhea, and temperatures up to 102. Patient tested positive for COVID-19 at our facility, per patient she is vaccinated. She is currently requiring 2 L of oxygen via nasal cannula. Blood cultures showed no growth at 24 hours, urine culture positive for MRSA and E. coli. Patient empirically placed on vancomycin and Rocephin. Review of Systems 10-point ROS is otherwise unremarkable Physical Examination - Vital Signs Temperature: 97.0 F Blood Pressure: 115/69 Pulse: 95 Respirations: 20 Pulse Ox (%): 97 - Physical Exam General: Alert, In no apparent distress, Obese HEENT: Atraumatic, Normocephalic Neck: Supple, 2+ carotid pulse no bruit Respiratory: Clear to auscultation bilaterally, Normal air movement Cardiovascular: Regular rate/rhythm, Normal S1 S2 Gastrointestinal: Soft and benign, Non-distended Integumentary: Other (Bilateral lower extremity lymphedema) - Studies Microbiology Data (last 24 hrs): 07/30/21 14:00 Catheterized Urine [place] Count - Final >100,000 CFU/ML. 07/30/21 14:00 Catheterized Urine - Final Escherichia Coli Escherichia Coli#2 Meth Resistant Staph Aureus Assessment And Plan - Plan Antibiotics: Rocephin Start: 07/24 Vancomycin Start: 07/24 Assessment/plan UTI Urinary culture growing MRSA and E. coli both sensitive to Bactrim. Recommend discontinuing IV Rocephin and IV vancomycin and switching to monotherapy with oral Bactrim. Continue to monitor renal function COVID-19 Continue oxygen supplementation. Continue steroid therapy. Pancytopenia Recommend hematology consultation. -Medical management per primary team Plan of care discussed with Dr. Esparza To go for consultation Physician Review Additional Text: Problem list Acute hypoxemic respiratory failure secondary to COVID-19 pneumonia UTI, history of urinary incontinence, straight caths Spina bifida, h/o PAINTER FOREMAN shunt Right breast swelling/tenderness Right breast intertrigo Abdominal pain Steroids, oxygen supplementation, pulmonology consults for COVID-19 pneumonia Rocephin given in ED, follow-up urine cultures, blood cultures. Patient does not appear septic. Is lownormal blood pressure, responded well to IV fluids Minimize IV fluid usage given significant bilateral lower extremity lymphedema Consult wound care CT head/chest/abdomen/pelvis, evaluate PAINTER FOREMAN shunt, right breast, abdominal pain Denies any recent worsening of GERD/heartburn Right breast: Concern for cancer vs infectious, however no significant erythema. No family history of breast cancer Topical antifungal for intertrigo Drake catheter placement for accurate I's and O's VTE: Lovenox Code full Dispo: Anticipate hospitalization 3-4 days, dc home
--- NOTE | 2021-08-03 15:28 | P.DS ---
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 Presents to ED due to 1 week of feeling ill. She has been feeling very tired/sleepy, having some diarrhea, febrile to 102 last night, with associated cough, shortness of breath, abdominal pain. She says her whole family and that she lives with have been having similar symptoms, however they all improved, while she has been getting worse. Family member at the bedside states that she became concerned due to the amount of sleepiness. Patient is currently awake/alert/oriented x3. Patient also reports 2 months of progressively worseni ng right breast pain. She reports significant swelling 2 months ago. In the ED, she was found to have bacteriuria, chest x-ray showed bilateral opacities. She was found to be Covid positive. Patient admitted for further management. Hospital Course: Problem list Acute hypoxemic respiratory failure secondary to COVID-19 pneumonia UTI, history of urinary incontinence, straight caths Spina bifida, h/o AUTO GLASS TECHNICIAN shunt Right breast swelling/tenderness Right breast intertrigo Abdominal pain Patient admitted to the medical floor and treated for COVID-pneumonia with steroids. Current oxygen saturation was high on 1 L oxygen by nasal cannula. Patient tolerated room air with good oxygen saturation Her urine culture grew MRSA and E. coli all sensitive to Bactrim. Patient received 4 days of IV vancomycin and Rocephin which the organisms were sensitive to. Seen by infectious disease and monotherapy with Bactrim recommended. Patient is discharged with 10 days of Bactrim. Patient blood pressure was soft. Had an episode of hypotension which responded to 250 mill bolus normal saline. She was normotensive the rest of the hospital stay. Wound care saw patient and applied lymphedema wrap to both legs. CT head/chest/abdomen/pelvis to evaluate AUTO GLASS TECHNICIAN shunt and right breast: Unremarkable. Right breast swelling likely secondary to edema. She has erythema under the left breast-could be fungal infection versus cellulitis. The erythematous rash almost resolved with antibiotics and topical nystatin. Drake catheter placed for accurate I's and O's. Serial CT head to assess her V-P shunt given transient episode of drowsiness was unremarkable. Vital Signs/Physical Exam: Temp Pulse Resp BP Pulse Ox 97.0 F 95 H 20 115/69 97 08/03/21 12:15 08/03/21 12:15 08/03/21 12:15 08/03/21 12:15 08/03/21 12:15 General: In no apparent distress HEENT: Mucous membr. moist/pink Neck: JVD not distended Respiratory: Crackles/rales (Mild bibasilar Rales) Cardiovascular: Regular rate/rhythm, Normal S1 S2 Gastrointestinal: Soft and benign, Non-distended Musculoskeletal: Other (Bilateral lower extremity lymphedema) Integumentary: Other (Dependent edema right breast) Neurological: Other (Moves extremities spontaneously) Laboratory Data at Discharge: WBC 3.70 K/uL (4.3-10.9) L 08/03/21 05:49 Hgb 10.9 g/dL (12.0-15.0) L 08/03/21 05:49 Hct 38.9 % (36.0-45.0) 08/03/21 05:49 Plt Count 102 K/uL (152-406) L 08/03/21 05:49 Sodium 142 mmol/L (136-145) 08/03/21 05:49 Potassium 4.3 mmol/L (3.5-5.1) 08/03/21 05:49 BUN 20 mg/dL (7-18) H 08/03/21 05:49 Creatinine 0.39 mg/dL (0.55-1.3) L 08/03/21 05:49 Glucose 125 mg/dL (74-106) H 08/03/21 05:49 Phosphorus 3.0 mg/dL (2.5-4.9) 07/31/21 06:48 Magnesium 2.0 mg/dL (1.8-2.4) 07/31/21 06:48 Total Bilirubin 0.4 mg/dL (0.2-1.0) 08/01/21 07:50 AST 24 U/L (15-37) 08/01/21 07:50 ALT 11 U/L (12-78) L 08/01/21 07:50 Alkaline Phosphatase 72 U/L (45-117) 08/01/21 07:50 Home Medications: Mirtazapine [Remeron*] 1 tab PO BID 10/28/18 Folic Acid 1 mg PO DAILY #90 tablet 11/02/18 Nystatin Powder [Mycostatin (Powder)*] 1 appl TOP BID #1 btl 08/03/21 Silver Sulfadiazine Crm [Silvadene*] 1 appl TOP DAILY #1 jar 08/03/21 Smz./Tmp. [Bactrim Ds 800 MG/160 MG] 1 tab PO BID #20 tab 08/03/21 predniSONE [Deltasone] 20 mg PO BID #15 tab 08/03/21 New Medications: Smz./Tmp. [Bactrim Ds 800 MG/160 MG] 1 tab PO BID #20 tab Nystatin Powder [Mycostatin (Powder)*] 1 appl TOP BID #1 btl predniSONE [Deltasone] 20 mg PO BID #15 tab Silver Sulfadiazine Crm [Silvadene*] 1 appl TOP DAILY #1 jar Diet: AHA Activity: Fall precautions Followup: OYAMILA MARES [Primary Care Provider] - 1-2 Weeks
--- NOTE | 2021-08-03 16:15 | RAD REPORT ---
EXAM DESCRIPTION: [employer] Single [facility]08/03/2021 4:01 pm CLINICAL HISTORY: Chest pain COMPARISON: July 31, 2021 FINDINGS: Mild worsening in moderate diffuse bilateral pulmonary opacities. The heart is mildly enla rged. Small right pleural effusion IMPRESSION: Mild worsening in diffuse moderate bilateral pulmonary opacities likely pneumonia
--- NOTE | 2021-08-03 17:14 | P.PN ---
Subjective Date of Service: 08/03/21 Chief Complaint: COVID-19 pneumonia, UTI Was more awake and interactive in the morning but now appears to be disoriented. She is complaining of pain in both upper extremities. Both upper extremities are edematous. She has been afebrile. Physical Examination - Vital Signs Temperature: 97.0 F Blood Pressure: 131/95 Pulse: 108 Respirations: 18 Pulse Ox (%): 83 - Physical Exam General: In no apparent distress, Confused HEENT: PERRLA, Mucous membr. moist/pink, EOMI Neck: Supple, JVD not distended Respiratory: Crackles/rales (Mild bibasilar crackles) Cardiovascular: Regular rate/rhythm, Normal S1 S2 Gastrointestinal: Normal bowel sounds, Soft and benign, Non-distended, No tenderness Musculoskeletal: Swelling (Bilateral upper extremities) Neurological: Other (Patient moves all extremities.) - Studies Microbiology Data (last 24 hrs): 07/30/21 14:00 Catheterized Urine [place] Count - Final >100,000 CFU/ML. 07/30/21 14:00 Catheterized Urine - Final Escherichia Coli Escherichia Coli#2 Meth Resistant Staph Aureus Assessment And Plan - Plan Problem list Acute hypoxemic respiratory failure secondary to COVID-19 pneumonia UTI, history of urinary incontinence, straight caths Spina bifida, h/o TRIM ATTACHER shunt Right breast swelling/tenderness Right breast intertrigo Abdominal pain AMS Anasarca Continue steroids. Patient is tolerating room air. Urine culture- MRSA and E. coli. Blood cultures: No growth. Antibiotics scaled down to oral Bactrim. Patient blood pressure has improved and currently stable. Patient briefly hypotensive and given 250 mill bolus normal saline. Wound care input appreciated. Lymphedema wrap applied to both legs. CT head/chest/abdomen/pelvis to evaluate TRIM ATTACHER shunt and right breast: Unremarkable. Right breast swelling likely secondary to edema. Erythema under the left breast-could be fungal infection versus cellulitis- almost resolved. Continue topical nystatin for intertrigo. Drake catheter placement for accurate I's and O's. AMS: Differential diagnosis-UTI versus COVID encephalopathy. Need to rule out structural pathology given the presence of V-P shunt. MRI of the brain with contrast ordered. Neurology consult. Start IV Lasix for anasarca.
[2021-08-03] MEDS: FUROSEMIDE 40 MG/4 ML VIAL IV SCH (17:48)
[2021-08-03] MEDS: ASPIRIN EC 81 MG TAB PO SCH (17:49)
[2021-08-04 06:03] LABS: Absolute Lymphocytes (CBC) 0.3 K/uL (0.7-4.9); Hematocrit 40.6 % (36.0-45.0); Lymphocytes % 9.8 % (15.3-44.8); MPV 8.3 fL (7.6-11.3); RBC Red Blood Cell Count 5.43 M/uL (3.86-4.86)
[2021-08-04 06:29] LABS: ALT/SGPT 11 U/L (12-78); AST/SGOT 9 U/L (15-37); Albumin 2.7 g/dL (3.4-5.0); Alkaline Phosphatase 59 U/L (45-117); BUN Blood Urea Nitrogen 16 mg/dL (7-18); Bicarbonate 31 mmol/L (21-32); Bilirubin Total 0.5 mg/dL (0.2-1.0); Glucose Level 114 mg/dL (74-106); Potassium 3.6 mmol/L (3.5-5.1); Protein, Total 6.4 g/dL (6.4-8.2); Sodium Level 142 mmol/L (136-145)
[2021-08-04] MEDS: FOLIC ACID 1 MG TABLET PO SCH (10:07)
[2021-08-04] MEDS: ASPIRIN EC 81 MG TAB PO SCH (10:07)
[2021-08-04] MEDS: SMZ./TMP. 800/160 MG TABLET PO SCH ×2 (10:07→21:31)
[2021-08-04] MEDS: MIRTAZAPINE 15 MG TAB PO SCH ×2 (10:07→21:31)
[2021-08-04] MEDS: FUROSEMIDE 40 MG/4 ML VIAL IV SCH ×2 (10:08→17:42)
[2021-08-04] MEDS: METHYLPREDNISOLONE 40 MG INJ IV SCH ×3 (10:08→21:31)
[2021-08-04] MEDS: SILVER SULFADIAZINE 1% 50 GM TOP SCH (10:09)
[2021-08-04] MEDS: NYSTATIN PWDR 100000 UNIT/GM TOP SCH ×2 (10:09→21:00)
--- NOTE | 2021-08-04 14:29 | P.PN ---
Subjective Date of Service: 08/04/21 Chief Complaint: COVID-19 pneumonia, UTI Patient still looks confused. She has been afebrile. Right upper extremity swelling has improved. Physical Examination - Vital Signs Temperature: 97.2 F Blood Pressure: 114/80 Pulse: 111 Respirations: 18 Pulse Ox (%): 94 - Physical Exam General: In no apparent distress, Confused HEENT: Mucous membr. moist/pink Neck: JVD not distended Respiratory: Clear to auscultation bilaterally, Normal air movement Cardiovascular: Normal S1 S2, Other (Tachycardia), Edema (Bilateral upper extremity edema improving. Bilateral lower extremity lymphedema) Gastrointestinal: Soft and benign, Non-distended, No tenderness Musculoskeletal: No tenderness Integumentary: No cyanosis Neurological: Other (Confused) - Studies Microbiology Data (last 24 hrs): 07/30/21 14:00 Blood - Blood Aerobic Blood Culture - Final No growth in 5 days. 07/30/21 14:00 Blood - Blood Anaerobic Blood Culture - Final No growth in 5 days. 07/30/21 14:00 Catheterized Urine [place] Count - Final >100,000 CFU/ML. 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 Patient is tolerating room air. Urine culture- MRSA and E. coli. Blood cultures: No growth. Antibiotics scaled down to oral Bactrim. Patient briefly hypotensive and given 250 mill bolus normal saline. Patient blood pressure has improved and currently stable. Wound care input appreciated. Lymphedema wrap applied to both legs. CT head/chest/abdomen/pelvis to evaluate POTATO CHIP COOKER MACHINE shunt and right breast: Unremarkable. Right breast swelling likely secondary to edema. Erythema under the left breast-could be fungal infection versus cellulitis- almost resolved. Continue topical nystatin for intertrigo. Drake catheter placement for accurate I's and O's. AMS: Differential diagnosis-UTI versus COVID encephalopathy. I suspect AMS likely secondary to COVID encephalopathy. MRI of the brain with contrast ordered. Neurology consulted. Neurology also recommended EEG. Continue IV Lasix for anasarca.
[2021-08-04] MEDS: predniSONE 20 MG TAB PO SCH (23:11)
[2021-08-05 06:10] LABS: Absolute Lymphocytes (CBC) 0.3 K/uL (0.7-4.9); Hematocrit 40.8 % (36.0-45.0); Lymphocytes % 8.4 % (15.3-44.8); MPV 8.2 fL (7.6-11.3); RBC Red Blood Cell Count 5.55 M/uL (3.86-4.86)
[2021-08-05 06:19] LABS: BUN Blood Urea Nitrogen 14 mg/dL (7-18); Bicarbonate 32 mmol/L (21-32); Glucose Level 101 mg/dL (74-106); Potassium 3.9 mmol/L (3.5-5.1); Sodium Level 143 mmol/L (136-145)
[2021-08-05] MEDS: ASPIRIN EC 81 MG TAB PO SCH (09:00)
[2021-08-05] MEDS: MIRTAZAPINE 15 MG TAB PO SCH ×2 (09:00→21:20)
[2021-08-05] MEDS: FOLIC ACID 1 MG TABLET PO SCH (09:00)
[2021-08-05] MEDS: predniSONE 20 MG TAB PO SCH ×2 (09:00→21:00)
[2021-08-05] MEDS ORDERED: POTASSIUM CL SA 10 MEQ TAB PO ONE ×2 (09:00→13:00)
[2021-08-05] MEDS: NYSTATIN PWDR 100000 UNIT/GM TOP SCH ×2 (09:00→10:00)
[2021-08-05] MEDS: SMZ./TMP. 800/160 MG TABLET PO SCH ×2 (09:00→21:19)
[2021-08-05] MEDS: SILVER SULFADIAZINE 1% 50 GM TOP SCH (10:00)
--- NOTE | 2021-08-05 14:04 | P.PN ---
Subjective Date of Service: 08/05/21 Chief Complaint: COVID-19 pneumonia, UTI Patient doing much better today. She is awake and alert, pleasant and asking when she can go home. She has been afebrile. Bilateral upper extremity swelling have improved. Physical Examination - Vital Signs Temperature: 97.8 F Blood Pressure: 129/87 Pulse: 113 Respirations: 18 Pulse Ox (%): 98 - Physical Exam General: Alert, In no apparent distress, Oriented x3 HEENT: Mucous membr. moist/pink Neck: JVD not distended Respiratory: Clear to auscultation bilaterally, Normal air movement Cardiovascular: Normal S1 S2, Other (Bilateral lower extremity lymphedema, tachycardia.) Gastrointestinal: Soft and benign, Non-distended Musculoskeletal: No tenderness Integumentary: No cyanosis - Studies Microbiology Data (last 24 hrs): 07/30/21 14:00 Blood - Blood Aerobic Blood Culture - Final No growth in 5 days. 07/30/21 14:00 Blood - Blood Anaerobic Blood Culture - Final No growth in 5 days. Assessment And Plan - Plan Problem list Acute hypoxemic respiratory failure secondary to COVID-19 pneumonia UTI, history of urinary incontinence, straight caths Spina bifida, h/o HEAD CONTROL CLERK shunt Right breast swelling/tenderness Right breast intertrigo Abdominal pain AMS Anasarca Continue steroids. Patient is tolerating room air. Urine culture- MRSA and E. coli. Blood cultures: No growth. Antibiotics scaled down to oral Bactrim. Patient briefly hypotensive and given 250 mill bolus normal saline. Patient blood pressure has improved and currently stable. Wound care input appreciated. Lymphedema wrap applied to both legs. CT head/chest/abdomen/pelvis to evaluate HEAD CONTROL CLERK shunt and right breast: Unremarkable. Right breast swelling likely secondary to edema. Erythema under the left breast-could be fungal infection versus cellulitis- almost resolved. Continue topical nystatin for intertrigo. Drake catheter placement for accurate I's and O's. AMS: Differential diagnosis-UTI versus COVID encephalopathy. Patient mental status back to baseline. He is interacting meaningfully and pleasant. MRI of the brain with contrast ordered. Neurology consulted for AMS. Neurology also recommended EEG. Anasarca improved. IV Lasix discontinued.
[2021-08-05] MEDS ORDERED: predniSONE 10 MG TAB ONE (21:03)
[2021-08-06 07:41] LABS: Absolute Lymphocytes (CBC) 0.3 K/uL (0.7-4.9); Hematocrit 39.8 % (36.0-45.0); Lymphocytes % 6.9 % (15.3-44.8); MPV 8.6 fL (7.6-11.3); RBC Red Blood Cell Count 5.46 M/uL (3.86-4.86)
[2021-08-06 07:48] LABS: BUN Blood Urea Nitrogen 18 mg/dL (7-18); Bicarbonate 32 mmol/L (21-32); Glucose Level 100 mg/dL (74-106); Potassium 4.2 mmol/L (3.5-5.1); Sodium Level 142 mmol/L (136-145)
[2021-08-06] MEDS: MIRTAZAPINE 15 MG TAB PO SCH ×2 (08:53→21:00)
[2021-08-06] MEDS: POTASSIUM CL SA 10 MEQ TAB PO SCH (08:53)
[2021-08-06] MEDS: SMZ./TMP. 800/160 MG TABLET PO SCH ×2 (08:54→21:00)
[2021-08-06] MEDS: predniSONE 20 MG TAB PO SCH ×2 (08:54→21:00)
[2021-08-06] MEDS: FOLIC ACID 1 MG TABLET PO SCH (08:54)
[2021-08-06] MEDS: ASPIRIN EC 81 MG TAB PO SCH (08:54)
[2021-08-06 08:59] LABS: Platelet Estimate DECR
[2021-08-06 09:00] LABS: Anisocytosis SLIGHT; Basophilic Stippling 1+; Blood Morphology Comment NOTED (NOT SEEN); Hypochromasia 1+
[2021-08-06] MEDS: SILVER SULFADIAZINE 1% 50 GM TOP SCH (09:00)
--- NOTE | 2021-08-06 17:24 | P.PN ---
Subjective Date of Service: 08/06/21 Chief Complaint: COVID-19 pneumonia, UTI Patient's mental status appears to wax and wane. She is more sleepy today. Was at baseline, more awake and interactive yesterday. Physical Examination - Vital Signs Temperature: 98.8 F Blood Pressure: 132/74 Pulse: 104 Respirations: 20 Pulse Ox (%): 100 - Physical Exam General: Alert HEENT: Mucous membr. moist/pink Neck: JVD not distended Respiratory: Clear to auscultation bilaterally Cardiovascular: Other (Lymphedema bilateral lower extremities), Edema Gastrointestinal: Soft and benign, Non-distended Musculoskeletal: No tenderness Neurological: Other (Slow to respond, occasionally stares, confused today.) Assessment And Plan - Plan Problem list Acute hypoxemic respiratory failure secondary to COVID-19 pneumonia UTI, history of urinary incontinence, straight caths Spina bifida, h/o TENNIS COACH shunt Right breast swelling/tenderness Right breast intertrigo Abdominal pain AMS Anasarca COVID encephalopathy Continue steroids. Patient is tolerating room air. Urine culture- MRSA and E. coli. Blood cultures: No growth. Antibiotics scaled down to oral Bactrim. Continue oral Bactrim. Patient briefly hypotensive and status post 250 mill bolus normal saline. Blood pressure has been stable. Wound care input appreciated. Lymphedema wrap applied to both legs. CT head/chest/abdomen/pelvis to evaluate TENNIS COACH shunt and right breast: Unremarkable. Right breast swelling likely secondary to edema. Erythema under the left breast-could be fungal infection versus cellulitis- almost resolved. Continue topical nystatin for intertrigo. Drake catheter placement for accurate I's and O's. AMS: Differential diagnosis-UTI versus COVID encephalopathy. Patient mental status back to baseline. He is interacting meaningfully and pleasant. MRI of the brain with contrast ordered pending. EEG done. Neurology-Dr. Shin suspect COVID encephalopathy leading to waxing and waning altered mental status. Anasarca improved. IV Lasix discontinued. Diet as tolerated. Patient may need disposition to skilled rehab. Physician Review Additional Text: Problem list Acute hypoxemic respiratory failure secondary to COVID-19 pneumonia UTI, history of urinary incontinence, straight caths Spina bifida, h/o TENNIS COACH shunt Right breast swelling/tenderness Right breast intertrigo Abdominal pain Steroids, oxygen supplementation, pulmonology consults for COVID-19 pneumonia Rocephin given in ED, follow-up urine cultures, blood cultures. Patient does not appear septic. Is lownormal blood pressure, responded well to IV fluids Minimize IV fluid usage given significant bilateral lower extremity lymphedema Consult wound care CT head/chest/abdomen/pelvis, evaluate TENNIS COACH shunt, right breast, abdominal pain Denies any recent worsening of GERD/heartburn Right breast: Concern for cancer vs infectious, however no significant erythema. No family history of breast cancer Topical antifungal for intertrigo Drake catheter placement for accurate I's and O's VTE: Lovenox Code full Dispo: Anticipate hospitalization 3-4 days, dc home
[2021-08-06] MEDS ORDERED: LIDOCAINE 1% MPF 5 ML VIAL ONE (18:28)
--- NOTE | 2021-08-06 19:51 | CON ---
Reason For Consultation: Consultation called because of history of hydrocephalus, status post ventri culoperitoneal shunt and spina bifida, chronic lymphedema with urinary incontinence, and straight cat heterization from her home, comes to [facility] with fever to 102 with lethargy, shortness o f breath, abdominal pain, and general failure to thrive. The patient was evaluated in [facility] and found to have significant swelling in the extremities. Her workup revealed she is positive for COVID with COVID, likely bilateral pulmonary opacification representing viral infection such as COVID pneumonia. There is a right-sided shunt tubing noted to be in place. Chest x-ray from the 14t h showed mild worsening diffuse pneumonia pattern. She was treated with prednisone, Bactrim DS 800 m g twice daily, also aspirin 81 mg daily, folic acid. Remeron, and nebulizers. She is now in a COVID floor. Since hospitalization, she did not have seizure-like activity or any new focal deficits, but she has very poor responsiveness to verbal interaction. Her white blood cell count is 4.7, hemoglob in 11.5, platelets 91, neutrophils were 86. Her electrolyte pattern showed low calcium of 8.4, creat inine 0.27. Liver function studies essentially unremarkable except for mildly low numbers. Urinalys is did show she was loaded with bacteria, greater than 50 white blood cells, positive nitrite, 2+ est erase, 1+ protein. COVID-19 test is positive by RT-PCR. Past Medical History: As noted. Allergies: CLINDAMYCIN. Medications: Remeron daily, iron 325 mg twice daily, folic acid 1 mg daily, Levaquin 500 mg daily, S ilvadene apply topically daily. Vancomycin 1.5 g every 18 hours. Past Medical History: Depression, spina bifida as noted above. Surgical History: Ventriculoperitoneal shunt, back surgery for spina bifida, bilateral leg surgery. Family History: Positive for diabetes, hypertension, heart disease in father. Social History: No alcohol, tobacco, or IV drug use. Patient lives at home with family. Review of Systems: Unable to perform any reliable review of systems. The patient is not responding except very slowly, d id show thumbs up with the left-sided with pain, less movement noted on the right. Physical Examination: Vital Signs: Blood pressure 132/74, pulse of 104, respiratory rate 16 to 20, temperature 98.8, oxyge n saturation 100% on 2 L. Weight 210 pounds, height 5 feet 2 inches, BMI 38.4. GENERAL: Ms. Pacheco is resting comfortably. She is on oxygen by nasal cannula. She is in no signi ficant distress. HEENT: She is normocephalic, atraumatic. Sclerae appear anicteric. Pulmonary: She is clear with movement of airway, decreased breath sounds bilaterally. Abdomen: Obese, but soft. Extremities: No significant edema. Neurological: Unable to fully assess. She is slow to move the left arm but did give a thumbs-up sign , did attempt to move the right and move the legs and the feet fairly weakly, otherwise, unable to fu lly assess. She does have slightly increased tone in the extremities. She will be ambulated with ph ysical therapy. Assessment: Ms. Pacheco is a 45-year-old patient with likely COVID encephalopathy in addition to to xic encephalopathy from her urinary tract infection and superimposed long history of hydrocephalus wi th ventriculoperitoneal shunt, contributing to confusion. She does have COVID pneumonia from x-ray a nd positive COVID testing. Plan: Continue with supportive care for COVID pneumonia. Continue with a ntibiotics for urinary tract infection. The CT scan of the head does not show any abnormalities with the shunt. At this point, there is no evidence of any hydrocephalus and the right ventricular with a ventriculoperitoneal shunt is in place since this is compared to scans done 3 days ago a nd from June 16, 2020 that is more than a year and 2 months ago. The patient may be ambulated gi ngerly with physical therapy and she may eventually benefit from physical therapy once over the acute phase of her COVID i nfection. LB/MODL Voice ID: [id number] Report ID: [id number]
[2021-08-07 05:46] LABS: Absolute Lymphocytes (CBC) 0.3 K/uL (0.7-4.9); Hematocrit 37.9 % (36.0-45.0); Lymphocytes % 7.6 % (15.3-44.8); MPV 8.5 fL (7.6-11.3); RBC Red Blood Cell Count 5.15 M/uL (3.86-4.86)
[2021-08-07 06:01] LABS: BUN Blood Urea Nitrogen 20 mg/dL (7-18); Bicarbonate 34 mmol/L (21-32); Glucose Level 126 mg/dL (74-106); Potassium 4.3 mmol/L (3.5-5.1); Sodium Level 141 mmol/L (136-145)
--- NOTE | 2021-08-07 06:33 | P.PN ---
Date of Service: 08/07/21 Subjective: Reports having a mild headache Similar to prior/chronic headaches No acute events overnight, feeling better. Intermittent confusion over the last 2 days ROS: 10 point ROS as noted above, otherwise negative Physical exam GEN: Alert, oriented, NAD HEENT: Normal conjunctiva, sclera anicteric CV: Regular rate and rhythm, b/l chronic lymphedema Pulm: Nonlabored respiration on 2L NC ABD: Soft, nontender, nondistended Integumentary: Bilateral lower extremity lymphedema, wrapped in [place] bandages, no erythema/rash under right breast Neuro: Normal speech, normal affect Problem list Acute hypoxemic respiratory failure secondary to COVID-19 pneumonia UTI, history of urinary incontinence, straight caths Spina bifida, 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 Wean oxygen as tolerated Urine culture- MRSA and E. coli. Blood cultures: No growth. Antibiotics scaled down to oral Bactrim. Continue oral Bactrim. Blood pressure has been stable. Wound care input appreciated. Lymphedema wrap applied to both legs. CT head/chest/abdomen/pelvis to evaluate AGRICULTURAL PRODUCTION ENGINEER shunt and right breast: Unremarkable. Right breast swelling likely secondary to edema. Continue topical nystatin for intertrigo. Drake catheter placement for accurate I's and O's. straight cath's at home AMS: Differential diagnosis-UTI versus COVID encephalopathy. Patient mental status seems back to baseline this morning, some confusion yesterday MRI of the brain with contrast ordered pending. EEG done. Neurology-Dr. Shin suspect COVID encephalopathy leading to waxing and waning altered mental status. Anasarca improved. IV Lasix discontinued. Diet as tolerated. Patient may need disposition to skilled rehab. VTE: Lovenox Code: Full Dispo: Anticipate hospitalization 1-2 days Time Spent Managing Pts Care (In Minutes): 35
[2021-08-07] MEDS: FOLIC ACID 1 MG TABLET PO SCH (08:13)
[2021-08-07] MEDS: POTASSIUM CL SA 10 MEQ TAB PO SCH (08:13)
[2021-08-07] MEDS: MIRTAZAPINE 15 MG TAB PO SCH ×2 (08:13→20:06)
[2021-08-07] MEDS: predniSONE 20 MG TAB PO SCH ×2 (08:13→20:03)
[2021-08-07] MEDS: ASPIRIN EC 81 MG TAB PO SCH (08:13)
[2021-08-07] MEDS: SMZ./TMP. 800/160 MG TABLET PO SCH ×2 (08:13→20:02)
[2021-08-07] MEDS: SILVER SULFADIAZINE 1% 50 GM TOP SCH (09:23)
[2021-08-07] MEDS: ACETAMINOPHEN 500 MG TAB PO PRN (10:12)
--- NOTE | 2021-08-07 12:27 | RAD REPORT ---
EXAM DESCRIPTION: MRI - Brain Wo Cont - 08/07/2021 11:34 am CLINICAL HISTORY: V-P Shunt with AMS COMPARISON: No comparisons TECHNIQUE: Sagittal T1-weighted images were obtained along with PD/heavily T2-weighted and T2-FLAIR images. Axial DWI and ADC mapping sequences were also obtained along with coronal heavily T2-weighted images were obtained. FINDINGS: Some sequences are degraded by motion. No intracranial hemorrhage, mass or acute infarction. There is no edema or shift of midline structure s. No extra-axial fluid collections. Signal voids are seen as a normal finding in the major intracran ial vessels. No significant white matter disease. Right parietal ventriculostomy. Similar asymmetric dilatation of the right occipital horn of the lateral ventricle. Chiari 1 malformation noted. Minimal paranasal sinus thickening. IMPRESSION: No acute intracranial abnormality. Similar configuration of the ventricular system with asymmetric enlargement of the right occipital horn of the lateral ventricle. No findings to suggest a cute hydrocephalus. Chiari 1 malformation again noted.
[2021-08-07] MEDS: ENSURE HIGH PROTEIN 237 ML CAN PO SCH (20:03)
[2021-08-08 05:09] LABS: Absolute Lymphocytes (CBC) 0.2 K/uL (0.7-4.9); Hematocrit 38.6 % (36.0-45.0); Lymphocytes % 6.4 % (15.3-44.8); MPV 8.2 fL (7.6-11.3); RBC Red Blood Cell Count 5.22 M/uL (3.86-4.86)
[2021-08-08 06:16] LABS: Albumin 2.7 g/dL (3.4-5.0); BUN Blood Urea Nitrogen 21 mg/dL (7-18); Bicarbonate 36 mmol/L (21-32); Glucose Level 128 mg/dL (74-106); Potassium 5.1 mmol/L (3.5-5.1); Sodium Level 138 mmol/L (136-145)
[2021-08-08 06:20] LABS: ALT/SGPT 13 U/L (12-78); AST/SGOT 5 U/L (15-37); Alkaline Phosphatase 62 U/L (45-117); Bilirubin Total 0.4 mg/dL (0.2-1.0); Protein, Total 6.1 g/dL (6.4-8.2)
--- NOTE | 2021-08-08 06:47 | P.PN ---
Date of Service: 08/08/21 Subjective: improving, oxygen weaned down more alert/oriented, not as confused more energy/ more appetite ROS: 10 point ROS as noted above, otherwise negative Physical exam GEN: Alert, oriented, NAD HEENT: Normal conjunctiva, sclera anicteric CV: Regular rate and rhythm, b/l chronic lymphedema Pulm: Nonlabored respiration on RA ABD: Soft, nontender, nondistended Integumentary: Bilateral lower extremity lymphedema, wrapped in [place] bandages, no erythema/rash under right breast Neuro: Normal speech, normal affect Problem list Acute hypoxemic respiratory failure secondary to COVID-19 pneumonia UTI, history of urinary incontinence, straight caths Spina bifida, h/o [employer] shunt Right breast swelling/tenderness Right breast intertrigo, resolved Abdominal pain AMS Anasarca COVID encephalopathy pancytopenia Continue steroids. Wean oxygen as tolerated Urine culture- MRSA and E. coli. Blood cultures: No growth. Antibiotics scaled down to oral Bactrim. Continue oral Bactrim. Blood pressure has been stable. Wound care input appreciated. Lymphedema wrap applied to both legs. CT head/chest/abdomen/pelvis to evaluate [employer]OR [employer] shunt and right breast: Unremarkable. Right breast swelling likely secondary to edema. Continue topical nystatin for intertrigo. Drake catheter placement for accurate I's and O's. straight cath's at home AMS: Differential diagnosis-UTI versus COVID encephalopathy. Patient mental status seems back to baseline this morning, some confusion yesterday MRi ok. EEG done. Neurology-Dr. Shin suspect COVID encephalopathy leading to waxing and waning altered mental status. Anasarca improved. IV Lasix discontinued. Diet as tolerated. pancytopenic - with slowly decreasing thrombocytopenia, discussed with pulm, likely from COVID, repeat in AM VTE: Lovenox Code: Full Dispo: Anticipate dc home in ~1 day Time Spent Managing Pts Care (In Minutes): 35
[2021-08-08] MEDS: ENSURE HIGH PROTEIN 237 ML CAN PO SCH ×2 (09:00→20:41)
--- NOTE | 2021-08-08 09:04 | RAD REPORT ---
EXAM DESCRIPTION: RAD - Chest Single View - 08/08/2021 8:47 am CLINICAL HISTORY: hypoxia, f/u covid COMPARISON: Chest Single View dated 08/03/2021; Chest Single View dated 07/30/2021; Chest Single View dated 10/30/2018; Chest Single View dated 10/28/2018 FINDINGS: Lines: SALES PROGRAM COORDINATOR shunt tubing Lungs: Widespread bilateral airspace disease without significant change compared 08/03/2021. Low lung volumes. Pleural: No significant pleural effusions or pneumothorax. Cardiac: Cardiomegaly. Bones: No acute fractures. Other: IMPRESSION: Moderate to severe bilateral airspace opacities that may reflect multifocal pneumonia an d is unchanged.
[2021-08-08] MEDS: SMZ./TMP. 800/160 MG TABLET PO SCH ×2 (09:40→20:37)
[2021-08-08] MEDS: ASPIRIN EC 81 MG TAB PO SCH (09:40)
[2021-08-08] MEDS: SILVER SULFADIAZINE 1% 50 GM TOP SCH (09:40)
[2021-08-08] MEDS: POTASSIUM CL SA 10 MEQ TAB PO SCH (09:40)
[2021-08-08] MEDS: predniSONE 20 MG TAB PO SCH ×2 (09:40→20:37)
[2021-08-08] MEDS: MIRTAZAPINE 15 MG TAB PO SCH ×2 (09:40→20:38)
[2021-08-08] MEDS: FOLIC ACID 1 MG TABLET PO SCH (09:40)
[2021-08-08] MEDS: ACETAMINOPHEN 500 MG TAB PO PRN (20:38)
[2021-08-09 03:36] VITALS: O2SAT 95
[2021-08-09] MEDS: SMZ./TMP. 800/160 MG TABLET PO SCH (08:44)
[2021-08-09] MEDS: ASPIRIN EC 81 MG TAB PO SCH (08:44)
[2021-08-09] MEDS: predniSONE 20 MG TAB PO SCH (08:45)
[2021-08-09] MEDS: FOLIC ACID 1 MG TABLET PO SCH (08:45)
[2021-08-09] MEDS: POTASSIUM CL SA 10 MEQ TAB PO SCH (08:45)
[2021-08-09] MEDS: MIRTAZAPINE 15 MG TAB PO SCH (08:45)
[2021-08-09 08:46] LABS: Absolute Lymphocytes (CBC) 0.4 K/uL (0.7-4.9); Hematocrit 37.1 % (36.0-45.0); Lymphocytes % 9.2 % (15.3-44.8); MPV 8.7 fL (7.6-11.3); RBC Red Blood Cell Count 5.11 M/uL (3.86-4.86)
[2021-08-09] MEDS: ENSURE HIGH PROTEIN 237 ML CAN PO SCH (08:46)
[2021-08-09] MEDS: SILVER SULFADIAZINE 1% 50 GM TOP SCH (08:46)
[2021-08-09 09:19] LABS: Anisocytosis 1+; Blood Morphology Comment NOTED (NOT SEEN); Hypochromasia 1+; Ovalocytes 1+; Platelet Estimate DECR
--- NOTE | 2021-08-09 12:38 | P.DS ---
Admission Date: 07/30/21 Discharge Date: 08/09/21 Disposition: ROUTINE DISCHARGE Discharge Condition: FAIR Reason for Admission: COVID-19 pneumonia, UTI Consultations: Neurology - Dr. Aleida VALERA - Dr. Esparza Pulm - Dr. Kothari Procedures: CXR (07/30): Mild to moderate bilateral pulmonary opacities are present probably representing pulmonary infection/viral infection. The heart is prominent in size. Right-sided shunt tubing is noted. CT Head (07/31): IMPRESSION: No significant interval change has occurred since 2019 comparative examination. No hydrocephalus or acute process seen. CT Abd/pelvis (07/31): FINDINGS: Moderate bilateral pulmonary opacities are present which may represent pulmonary edema or pneumonia.Small bilateral pleural effusions are present, slightly greater on the right.No intrathoracic adenopathy. The liver, spleen, pancreas, adrenal glands and right kidney are within normal limits. Highly atrophic left kidney with 12 mm stone present. UNDERCOVER OPERATOR shunt is present in the abdomen and coils in the pelvis with mild free fluid present. Mild anasarca also noted. No pathologic lymphadenopathy in the abdomen or pelvis. Quite severe scoliosis noted. IMPRESSION: Bilateral pulmonary opacities may represent pulmonary edema/ volume overload or underlying pulmonary infection. CT Head (08/02): FINDINGS: No intracranial hemorrhage, hydrocephalus or extra-axial fluid collection.No areas of brain edema or evidence of midline shift. Right parietal ventriculostomy. The tip terminates in the frontal horn of the right lateral ventricle. This is unchanged. Ventricular configuration is unchanged. The paranasal sinuses and mastoids are clear. The calvarium is intact. IMPRESSION: No acute intracranial abnormality. Right parietal ventriculostomy with similar ventricular configuration. No hydrocephalus. CXR (08/03): IMPRESSION: Mild worsening in diffuse moderate bilateral pulmonary opacities likely pneumonia MRI Brain (08/07): IMPRESSION: No acute intracranial abnormality. Similar configuration of the ventricular system with asymmetric enlargement of the right occipital horn of the lateral ventricle. No findings to suggest acute hydrocephalus. Chiari 1 malformation again noted. CXR (08/08): FINDINGS: Lines: UNDERCOVER OPERATOR shunt tubing Lungs: Widespread bilateral airspace disease without significant change compared 08/03/2021. Low lung volumes. Pleural: No significant pleural effusions or pneumothorax. Cardiac: Cardiomegaly. Bones: No acute fractures. IMPRESSION: Moderate to severe bilateral airspace opacities that may reflect multifocal pneumonia and is unchanged. Problem list Acute hypoxemic respiratory failure secondary to COVID-19 pneumonia UTI, history of urinary incontinence, straight caths Spina bifida, h/o UNDERCOVER OPERATOR shunt Right breast swelling/tenderness Right breast intertrigo, resolved Abdominal pain Anasarca COVID encephalopathy pancytopenia secondary to COVID infection Brief History of Present Illness: 45yo F, PMH: Spina bifida s/p UNDERCOVER OPERATOR shunt, Chronic Lymphedema, urinary incontinence who straight caths at home. Presents to ED due to 1 week of feeling ill. She has been feeling very tired/sleepy, having some diarrhea, febrile to 102 last night, with associated cough, shortness of breath, abdominal pain. She says her whole family and that she lives with have been having similar symptoms, however they all improved, while she has been getting worse. Family member at the bedside states that she became concerned due to the amount of sleepiness. Patient is currently awake/alert/oriented x3. Patient also reports 2 months of progressively worsening right breast pain. She reports significant swelling 2 months ago, and that has improved, however she feels the right/lateral side is sick, the entire breast has been tender, and she has had a few days of nipple discharge. She reports abdominal pain for a few days as well, feels pain all over, nothing in particular seems to worsen or alleviate this pain. In the ED, she was found to have bacteriuria, chest x-ray showed bilateral opacities. She was found to be Covid positive. ER physician requested admission for further management of her COVID-19 pneumonia and UTI. Received [facility] summer 2020 Hospital Course: UTI Urine grew E.coli and MRSA. ID was consulted and empiric antibiotics were de- escalated to PO Bactrim after review of sensitivities. COVID-19 pneumonia CXR with mild-moderate b/l opacities. She was treated with steroids and oxygen supplementation. She was weaned down to 1L NC Discharged home to continue steroids and oxygen supplementation to maintain SpO2 > 90-92% Patient was noted to have some intermittent confusion neurology was consulted. UNDERCOVER OPERATOR shunt was again evaluated and found to be ok They felt her symptoms were likely to COVID-19 encephalopathy B/l chronic lymphedema / Anasarca She was noted to have moderate serous drainage from b/l legs, in lower extremities, R breast, and arms. She did receive 1 1/2 days of IV lasix. On day of discharge her swelling had improved Wound care nursing was consulted and recommended wound dressings ancillary services manager was consulted to assist in setting up home health patient is bed bound, requires max assist to be lifted into wheelchair, nonambulatory R breast intertrigo resolved with nystatin topical powder Pancytopenia patient noted to have pancytopenia. microcytic anemia WBC and Hgb remained stable, however platelets slowly downtrended and stabilized 70-80s. Rare, but possibly due to Bactrim. Discussed with pulmonology, suspects this is secondary to COVID-19 pneumonia Recommended close follow up with PCP and repeat blood work Vital Signs/Physical Exam: Physical exam GEN: Alert, oriented, NAD HEENT: Normal conjunctiva, sclera anicteric CV: Regular rate and rhythm, b/l chronic lymphedema Pulm: Nonlabored respiration on 1L NC ABD: Soft, nontender, nondistended Integumentary: Bilateral lower extremity lymphedema, wrapped in [place] bandages, no erythema/rash under right breast Neuro: Normal speech, normal affect Temp Pulse Resp BP Pulse Ox 97.1 F 105 H 18 127/82 91 08/09/21 08:00 08/09/21 08:00 08/09/21 08:00 08/09/21 08:00 08/09/21 08:00 Laboratory Data at Discharge: WBC 4.10 K/uL (4.3-10.9) L D 08/09/21 08:20 Hgb 11.0 g/dL (12.0-15.0) L 08/09/21 08:20 Hct 37.1 % (36.0-45.0) 08/09/21 08:20 Plt Count 78 K/uL (152-406) L* 08/09/21 08:20 Sodium 138 mmol/L (136-145) 08/08/21 04:45 Potassium 5.1 mmol/L (3.5-5.1) 08/08/21 04:45 BUN 21 mg/dL (7-18) H 08/08/21 04:45 Creatinine 0.40 mg/dL (0.55-1.3) L 08/08/21 04:45 Glucose 128 mg/dL (74-106) H 08/08/21 04:45 Phosphorus 3.0 mg/dL (2.5-4.9) 07/31/21 06:48 Magnesium 2.0 mg/dL (1.8-2.4) 08/08/21 04:45 Total Bilirubin 0.4 mg/dL (0.2-1.0) 08/08/21 04:45 AST 5 U/L (15-37) L 08/08/21 04:45 ALT 13 U/L (12-78) 08/08/21 04:45 Alkaline Phosphatase 62 U/L (45-117) 08/08/21 04:45 Home Medications: Mirtazapine [Remeron*] 1 tab PO BID 10/28/18 Folic Acid 1 mg PO DAILY #90 tablet 11/02/18 Nystatin Powder [Mycostatin (Powder)*] 1 appl TOP BID #1 btl 08/03/21 Silver Sulfadiazine Crm [Silvadene*] 1 appl TOP DAILY #1 jar 08/03/21 Smz./Tmp. [Bactrim Ds 800 MG/160 MG] 1 tab PO BID #20 tab 08/03/21 predniSONE [Deltasone] 20 mg PO BID #15 tab 08/03/21 New Medications: Smz./Tmp. [Bactrim Ds 800 MG/160 MG] 1 tab PO BID #20 tab Nystatin Powder [Mycostatin (Powder)*] 1 appl TOP BID #1 btl predniSONE [Deltasone] 20 mg PO BID #15 tab Silver Sulfadiazine Crm [Silvadene*] 1 appl TOP DAILY #1 jar Physician Discharge Instructions: Found to have a urinary tract infection and mild COVID pneumonia. You improved with antibiotics and steroids. Discharged home to continue with these medications. You have 5 more days left of antibiotics. Follow up with your PCP in 1 week Follow up with Dr. Kothari (Pulmonology) in ~1 week You are discharged with oxygen as well, recommend using oxygen as needed to maintain your oxygen saturation >90-92% Your platelets were noted to be lower than your normal baseline. Suspect this is secondary to your COVID infection. Recommend repeat blood work in 1-2 weeks. ancillary services manager was consulted to assist in setting up home health - to assist with leg dressing changes Diet: AHA Activity: Fall precautions Followup: Klaus Kothari MD [ACTIVE - CAN ADMIT] - 1 Week (Call to schedule an appointment) OOT,OOT [Primary Care Provider] - 1-2 Weeks (CAll to schedule an appointment) Time spent managing pt's care (in minutes): 45
[2021-08-09 12:43] VITALS: BP 129/85; TEMP 97.5
[2021-08-09] MEDS: ACETAMINOPHEN 500 MG TAB PO PRN (15:52)
[2021-08-09 15:54] LABS: BUN Blood Urea Nitrogen 29 mg/dL (7-18); Bicarbonate 31 mmol/L (21-32); Glucose Level 129 mg/dL (74-106); Potassium 5.5 mmol/L (3.5-5.1); Sodium Level 140 mmol/L (136-145)
== END 2021-08-09 16:59 | disposition home health service (06) | DRG 177 ==
LOC: ER 12:58 → ERHOLD 16:44 → 4TH 21:20
PROVIDERS: ADMIT Hospitalist; ATTEND Hospitalist
DX: U07.1 COVID-19 (principal); J12.82 Pneumonia due to coronavirus disease 2019; J96.01 Acute respiratory failure with hypoxia; G92.9 Unspecified toxic encephalopathy; N39.0 Urinary tract infection, site not specified; G93.49 Other encephalopathy; D61.818 Other pancytopenia; B96.20 Unspecified Escherichia coli [E. coli] as the cause of diseases classified elsewhere; B95.62 Methicillin resistant Staphylococcus aureus infection as the cause of diseases classified elsewhere; R32 Unspecified urinary incontinence; Q05.9 Spina bifida, unspecified; L30.4 Erythema intertrigo; R10.9 Unspecified abdominal pain; R60.1 Generalized edema; I89.0 Lymphedema, not elsewhere classified; Z98.2 Presence of cerebrospinal fluid drainage device
CPT/HCPCS: 0240U; 36415; 51702; 70450; 70551; 71045; 71250; 74176; 80048; 80053; 80202; 81003; 81015; 82728; 83605; 83735; 83880; 84100; 84145; 85025; 85379; 86140; 87040; 87077; 87086; 87088; 87186; 94760; 95816; 96374; 97161; 99251; 99284; J1940; J2920; J3370; J7030; J7040; J7050; J7512

== ENCOUNTER 2021-09-28 11:40 | Inpatient (IN) | payer OTHER ==
[2021-09-28] MEDS ORDERED: FUROSEMIDE 100 MG/10 ML VIAL IV ONE (12:13)
[2021-09-28 12:38] LABS: Absolute Lymphocytes (CBC) 1.4 K/uL (0.7-4.9); Hematocrit 44.1 % (36.0-45.0); Lymphocytes % 12.8 % (15.3-44.8); MPV 7.4 fL (7.6-11.3); RBC Red Blood Cell Count 5.86 M/uL (3.86-4.86)
[2021-09-28 12:40] LABS: Protime INR 1.16
--- NOTE | 2021-09-28 12:50 | RAD REPORT ---
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 Lungs: Widespread bilateral airspace opacities. Pleural: No significant pleural effusions or pneumothorax. Cardiac: Cardiomegaly. Bones: No acute fractures. Other: IMPRESSION: Severe bilateral airspace disease could reflect multifocal pneumonia and/or pulmonary ed milena.
[2021-09-28 12:58] LABS: Albumin 2.9 g/dL (3.4-5.0); Bilirubin Direct 0.3 mg/dL (0-0.2); Bilirubin Total 0.7 mg/dL (0.2-1.0); Magnesium 2.1 mg/dL (1.8-2.4); Potassium 4.8 mmol/L (3.5-5.1); Troponin High Sensitivity 55.3 pg/mL (<58.9)
[2021-09-28 13:39] LABS: Anisocytosis 2+; Blood Morphology Comment NOTED (NOT SEEN); Platelet Estimate ADEQ; White Blood Cell Scan OK (OK)
[2021-09-28 13:40] LABS: Hypochromasia 1+; Polychromasia 1+
--- NOTE | 2021-09-28 13:40 | EDPHYS ---
Physician Documentation [facility] Name: Luz Elena Pacheco Age: 46 yrs Sex: Female : 1975 Arrival Date: 09/28/2021 Time: 11:46 Bed 14 Private MD: ED Physician Conrado Santillan HPI: 09/28 13:29 This 46 yrs old Female presents to ER via EMS with complaints of Shortness of jr8 breath/Swelling. 13:29 The patient has shortness of breath at rest. Onset: The symptoms/episode began/occurred jr8 gradually. Duration: The symptoms are continuous, and are steadily getting worse. The patient's shortness of breath is aggravated by light activity. Associated signs and symptoms: Pertinent positives: edema. Severity of symptoms: At their worst the symptoms were moderate in the emergency department the symptoms are unchanged. It is unknown whether or not the patient has had similar symptoms in the past. The patient has not recently seen a physician. This is a 46-year-old female that presented to the emergency room with increasing shortness of breath. Patient stated that since this past July after having Covid she has had problems with breathing with any sort of activity and increase in swelling. Patient stated over the last several days both have become increasingly worse. Patient was in the 80s room air upon EMS arrival.. 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 - Social history:: Smoking status: Patient denies any tobacco usage or history of. ROS: 13:29 Eyes: Negative for injury, pain, redness, and discharge, ENT: Negative for injury, jr8 pain, and discharge, Neck: Negative for injury, pain, and swelling, Cardiovascular: Negative for chest pain, palpitations, and edema, Abdomen/GI: Negative for abdominal pain, nausea, vomiting, diarrhea, and constipation, Back: Negative for injury and pain, MS/Extremity: Negative for injury and deformity, Skin: Negative for injury, rash, and discoloration, Neuro: Negative for headache, weakness, numbness, tingling, and seizure. 13:29 Respiratory: Positive for orthopnea, shortness of breath. Exam: 13:29 Constitutional: This is a well developed, well nourished patient who is awake, alert, jr8 and in no acute distress. 13:29 Abdomen/GI: Soft, non-tender, with normal bowel sounds. No distension or tympany. No guarding or rebound. No evidence of tenderness throughout. MS/ Extremity: Pulses equal, no cyanosis. Neurovascular intact. Full, normal range of motion. Neuro: Awake and alert, GCS 15, oriented to person, place, time, and situation. Cranial nerves II-XII grossly intact. Sensory grossly intact. Paraplegic 13:29 Cardiovascular: Rate: tachycardic, Rhythm: regular, Pulses: Pulses are 2+ in right radial artery and left radial artery. Heart sounds: normal, normal S1and S2, no S3 or S4, no murmur, no rub, no gallop, Edema: 3+ edema to level of right upper arm, right elbow, right forearm, right wrist, left midcalf, left ankle, left foot, left toes, right midcalf, right ankle, right foot and right toes. 13:29 Respiratory: the patient does not display signs of respiratory distress, Respirations: normal, symetrical, no use of accessory muscles, no grunting, no evidence of nasal flaring, no appreciated paradoxical movements, no prolonged exhalations, no pursed lip breathing, no retractions, no shallow respirations, no splinting, no tachypnea, Breath sounds: rales, that are mild, are heard diffusely. 13:29 Skin: Appearance: Color: dusky, Temperature: cool. Vital Signs: 12:04 BP 109 / 81; Pulse 105; Resp 20; Temp 98.0(TE); Pulse Ox 87% on R/A; ll1 12:06 Pulse Ox 95% on 2 lpm NC; ll1 14:03 Pulse 109; Pulse Ox 97% on 2 lpm NC; ll1 14:27 BP 114 / 88; Pulse 104; Resp 20; Pulse Ox 98% on 2 lpm NC; ll1 15:07 BP 107 / 73; Pulse 105; Resp 20; Pulse Ox 99% on 2 lpm NC; ll1 16:31 BP 108 / 81; Pulse 108; Resp 20; Pulse Ox 96% on 2 lpm NC; ll1 MDM: 11:47 Patient medically screened. [facility] 13:29 Data reviewed: vital signs, nurses notes, lab test result(s), EKG, radiologic studies, [facility] plain films. Data interpreted: Pulse oximetry: on room air is 87 %. Interpretation: hypoxia. Counseling: I had a detailed discussion with the patient and/or guardian regarding: the historical points, exam findings, and any diagnostic results supporting the discharge/admit diagnosis, lab results, radiology results, the need for further work-up and treatment in the hospital. 09/28 11:47 Order name: Basic Metabolic Panel; Complete Time: 12:58 [facility] 09/28 11:47 Order name: CBC with Diff; Complete Time: 13:40 [facility] 09/28 11:47 Order name: LFT's; Complete Time: 12:58 [facility] 09/28 11:47 Order name: Magnesium; Complete Time: 12:58 [facility] 09/28 11:47 Order name: NT PRO-BNP; Complete Time: 12:58 [facility] 09/28 11:47 Order name: PT-INR; Complete Time: 12:57 [facility] 09/28 11:47 Order name: Troponin HS; Complete Time: 12:58 [facility] 09/28 11:47 Order name: XRAY Chest (1 view); Complete Time: 12:57 [facility] 09/28 11:47 Order name: Blood Culture Adult (2) [facility] 09/28 11:47 Order name: Lactate; Complete Time: 12:57 [facility] 09/28 12:40 Order name: CBC Smear Scan; Complete Time: 13:40 [facility] 09/28 15:13 Order name: SARS-COV-2 RT PCR; Complete Time: 16:13 [facility] 09/28 11:47 Order name: EKG; Complete Time: 11:48 [facility] 09/28 11:47 Order name: Cardiac monitoring; Complete Time: 12:39 [facility] 09/28 11:47 Order name: EKG - Nurse/Tech; Complete Time: 12:28 [facility] 09/28 11:47 Order name: IV Saline Lock; Complete Time: 12:06 [facility] 09/28 11:47 Order name: Labs collected and sent; Complete Time: 12:06 [facility] 09/28 11:47 Order name: O2 Per Protocol; Complete Time: 12:06 [facility] 09/28 11:47 Order name: O2 Sat Monitoring; Complete Time: 12:06 jr8 Administered Medications: 12:36 Drug: Lasix (furosemide) 60 mg Route: IVP; Site: left antecubital; ll1 15:07 Follow up: Response: No adverse reaction ll1 Disposition Summary: 09/28/21 13:39 Hospitalization Ordered Hospitalization Status: Inpatient Admission jr8 Provider: Nitish Harman jr Condition: Stable jr8 Problem: new jr8 Symptoms: have improved jr8 Bed/Room Type: Standard [facility] Location: Telemetry/MedSurg (Inpatient)(09/28/21 19:33) mw Room Assignment: 201(09/28/21 20:43) mw Diagnosis - Acute systolic (congestive) heart failure jr8 - Respiratory failure, unspecified with hypoxia jr8 - Anasarca jr8 Forms: - Medication Reconciliation Form jr8 - SBAR form jr8 Addendum: 10/11/2021 07:33 Co-signature as Attending Physician, Conrado Santillan MD I agree with the assessment and k dr plan of care. Signatures: Dispatcher [employer] EDAL Bree Mixon RN RN Conrado Sweeney MD MD [facility], [facility] em1 Anand Cheng PA PA 8 Wilder Gutiérrez RN RN ll1 Corrections: (The following items were deleted from the chart) 09/28 15:13 14:58 COVID 19 CPL+BRZ ordered. EDAL EDMS 17:01 13:39 Telemetry/MedSurg (Inpatient) jr8 em1 17:01 13:39 jr8 em1 19:33 17:01 [facility] ER HOLD em1 mw 19:33 17:01 ERHOLD- em1 mw 20:43 19:33 mw mw
--- NOTE | 2021-09-28 13:40 | ER ---
Nurse's Notes [facility] Name: Luz Elena Pacheco Age: 46 yrs Sex: Female : 1975 Arrival Date: 09/28/2021 Time: 11:46 Bed 14 Private MD: Diagnosis: Acute systolic (congestive) heart failure;Respiratory failure, unspecified with hypoxia;Anasarca Presentation: 09/28 11:50 Chief complaint: Patient states: SOB started today. Using home O2 off/on since covid ll1 diagnosis. Coronavirus screen: Vaccine status: Patient reports receiving the 2nd dose of the covid vaccine. Client denies travel out of the [place] in the last 14 days. difficulty breathing, shortness of breath. Ebola Screen: Patient denies travel to an Ebola-affected area in the 21 days before illness onset. Initial Sepsis Screen: Does the patient meet any 2 criteria? HR > 90 bpm. No. Patient's initial sepsis screen is negative. Does the patient have a suspected source of infection? Yes: Productive cough/pneumonia. Risk Assessment: Do you want to hurt yourself or someone else? Patient reports no desire to harm self or others. Onset of symptoms was September 28, 2021. 11:50 Method Of Arrival: EMS: [facility] 1 11:50 Acuity: ANASTASIIA 3 ll1 Triage Assessment: 11:53 General: Appears ill, Behavior is calm, cooperative, appropriate for age. Pain: Denies ll1 pain. Neuro: No deficits noted. Cardiovascular: No deficits noted. Respiratory: Reports shortness of breath Airway is patent Trachea midline Respiratory effort is even, unlabored, Respiratory pattern is regular, Breath sounds with rales bilaterally. the patient has moderate shortness of breath. 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 - Social history:: Smoking status: Patient denies any tobacco usage or history of. Screenin:02 Abuse screen: Denies threats or abuse. Nutritional screening: No deficits noted. ll1 Tuberculosis screening: No symptoms or risk factors identified. Fall Risk IV access (20 points). Total Bradley Fall Scale indicates No Risk (0-24 pts). Assessment: 13:00 Reassessment: No changes from previously documented assessment. Patient and/or family ll1 updated on plan of care and expected duration. Pain level reassessed. Patient is alert, oriented x 3, equal unlabored respirations, skin warm/dry/pink. 14:00 Reassessment: No changes from previously documented assessment. Patient and/or family ll1 updated on plan of care and expected duration. Pain level reassessed. Patient is alert, oriented x 3, equal unlabored respirations, skin warm/dry/pink. 15:00 Reassessment: No changes from previously documented assessment. Patient and/or family ll1 updated on plan of care and expected duration. Pain level reassessed. Patient is alert, oriented x 3, equal unlabored respirations, skin warm/dry/pink. 16:00 Reassessment: No changes from previously documented assessment. Patient and/or family ll1 updated on plan of care and expected duration. Pain level reassessed. Patient is alert, oriented x 3, equal unlabored respirations, skin warm/dry/pink. 19:44 Reassessment: Patient appears in no apparent distress at this time. Patient and/or lg3 family updated on plan of care and expected duration. Pain level reassessed. Patient is alert, oriented x 3, equal unlabored respirations, skin warm/dry/pink. pt quietly sleeping at this time. Vital Signs: 12:04 BP 109 / 81; Pulse 105; Resp 20; Temp 98.0(TE); Pulse Ox 87% on R/A; ll1 12:06 Pulse Ox 95% on 2 lpm NC; ll1 14:03 Pulse 109; Pulse Ox 97% on 2 lpm NC; ll1 14:27 BP 114 / 88; Pulse 104; Resp 20; Pulse Ox 98% on 2 lpm NC; ll1 15:07 BP 107 / 73; Pulse 105; Resp 20; Pulse Ox 99% on 2 lpm NC; ll1 16:31 BP 108 / 81; Pulse 108; Resp 20; Pulse Ox 96% on 2 lpm NC; ll1 ED Course: 11:46 Patient arrived in ED. jr8 11:47 Anand Cheng PA is PHCP. jr8 11:47 Conrado Santillan MD is Attending Physician. jr8 11:51 Triage completed. ll1 11:51 Arm band placed on Patient placed in an exam room, on a stretcher. ll1 12:00 Patient has correct armband on for positive identification. Bed in low position. Call ll1 light in reach. Side rails up X 1. 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 Pulse ox on. NIBP on. 12:04 Wilder Gutiérrez, RN is Primary Nurse. ll1 12:27 Inserted saline lock: 22 gauge in left antecubital area, using aseptic technique. Blood tp1 collected. 12:27 Missed attempt(s): 20 gauge in left breast . Bleeding controlled, band aid applied, tp1 catheter tip intact. 12:28 EKG done, by ED staff. tp1 12:35 XRAY Chest (1 view) In Process Unspecified. EDMS 13:39 Nitish Harman is Hospitalizing Provider. jr8 14:02 No provider procedures requiring assistance completed. ll1 20:55 Patient admitted, IV remains in place. intact, No redness/swelling at site. Oxygen lg3 administration via nasal cannula \T\ 2L/min. Administered Medications: 12:36 Drug: Lasix (furosemide) 60 mg Route: IVP; Site: left antecubital; ll1 15:07 Follow up: Response: No adverse reaction ll1 Outcome: 13:39 Decision to Hospitalize by Provider. jr8 20:54 Admitted to Med/surg accompanied by tech, via stretcher, room 201, Report called to lg3 stacy 20:54 Condition: good 20:54 Instructed on the need for admit. 21:50 Patient left the ED. 3 Signatures: Dispatcher [employer] EDMS Anand Cheng PA PA jr8 Jamee Wood, RN RN lg3 Wilder Gutiérrez, RN RN ll1 Aicha Murillo tp1 Corrections: (The following items were deleted from the chart) 12:40 12:04 BP 109 / 81; Pulse 105bpm; Resp 20bpm; Pulse Ox 87% RA; ll1 ll1 16:30 11:53 Respiratory: Reports shortness of breath ll1 ll1
--- NOTE | 2021-09-28 16:32 | P.HP ---
Certification for Inpatient Patient admitted to: Inpatient With expected LOS: >2 Midnights Practitioner: I am a practitioner with admitting privileges, knowledge of patient current condition, hospital course, and medical plan of care. Services: Services provided to patient in accordance with Admission requirements found in Title 42 Section 412.3 of the Code of Federal Regulations Patient History Date of Service: 09/28/21 Reason for admission: Hypoxia History of Present Illness: 46-year-old woman with a history of spina bifida, paraplegia, bedbound, recent Covid infection with Covid encephalopathy was brought to the emergency department due to progressive shortness of breath. According to the mother patient was discharged to home which oxygen therapy after his hospitalization for Covid infection. Since then patient has been requiring oxygen on and off for intermittent hypoxia. Mother called EMS because patient was complaining of shortness of breath and turning dusky. EMS found him with oxygen saturation of 80%. Patient complaining of increased edema of the right upper extremity. She has lymphedema of both lower extremities. She usually lay on her right side. Patient was placed on oxygen therapy and given a dose of IV Lasix in the ED. No recent cardiac work-up. Patient is hospitalized for further management. Allergies Clindamycin Allergy (Mild, Uncoded 07/05/18 00:05) Hives/Rash Home Medications: Mirtazapine [Remeron*] 1 tab PO BID 10/28/18 Folic Acid 1 mg PO DAILY #90 tablet 11/02/18 Nystatin Powder [Mycostatin (Powder)*] 1 appl TOP BID #1 btl 08/03/21 Silver Sulfadiazine Crm [Silvadene*] 1 appl TOP DAILY #1 jar 08/03/21 Smz./Tmp. [Bactrim Ds 800 MG/160 MG] 1 tab PO BID #20 tab 08/03/21 predniSONE [Deltasone] 20 mg PO BID #15 tab 08/03/21 - Past Medical/Surgical History Diabetic: No -: spina bifida -: depression -: shunts -: back surgery (spina bifida) -: bilateral leg surgery - Family History Father -: Heart disease, Hypertension, Diabetes - Social History Alcohol use: No CD- Drugs: No Caffeine use: Yes Review of Systems Other: Patient denies any chest pain. She denies any palpitations. Except as documented, all other systems reviewed and negative. Physical Examination - Physical Exam General: Alert, In no apparent distress, Oriented x3, Obese HEENT: Mucous membr. moist/pink Neck: Supple, JVD not distended Respiratory: Diminished (Bilateral), Crackles/rales (Mild bibasilar crackles) Cardiovascular: Regular rate/rhythm, Normal S1 S2, No murmurs, Edema (Bilateral legs and right upper extremity) Capillary refill: <2 Seconds Gastrointestinal: Normal bowel sounds, Soft and benign, Non-distended, No tenderness Musculoskeletal: Swelling (Bilateral lower extremities) Integumentary: Other (Bilateral venous stasis dermatitis) Neurological: Other (Paraplegia) Lymphatics: Other (Bilateral lymphedema) - Studies Laboratory Data (last 24 hrs) 09/28/21 12:22: PT 12.8 H, INR 1.16 09/28/21 12:22: WBC 10.70, Hgb 12.8, Hct 44.1, Plt Count 283 09/28/21 12:22: Sodium 131 L, Potassium 4.8, BUN 52 H, Creatinine 1.01, Glucose 102, Magnesium 2.1, Total Bilirubin 0.7, AST 16, ALT 14, Alkaline Phosphatase 126 H Assessment and Plan - Problems (Diagnosis) (1) Anasarca Current Visit: Yes Status: Acute (2) Acute diastolic heart failure Current Visit: Yes Status: Acute (3) Acute respiratory failure with hypoxia Current Visit: Yes Status: Acute (4) Neurogenic dysfunction of the urinary bladder Onset Date: 07/06/18 Current Visit: No Status: Chronic (5) Spina bifida Current Visit: No Status: Chronic Qualifiers: Spinal region: unspecified Presence of hydrocephalus: unspecified hydrocephalus presence Qualified Code(s): Q05.9 - Spina bifida, unspecified - Plan Admit patient to the medical floor. Start IV Lasix. Monitor intake and output Daily weight Watch blood pressure IV Lasix Monitor renal function Obtain echocardiogram. Nutritional consult. Supplemental oxygen as needed. Reconcile and continue other home medications. - Advance Directives Does patient have a Living Will: No Does patient have a Durable POA for Healthcare: No
[2021-09-28] MEDS ORDERED: ONDANSETRON 4 MG/2 ML VIAL IV PRN (22:02)
[2021-09-28] MEDS ORDERED: ACETAMINOPHEN 500 MG TAB PO PRN (22:02)
[2021-09-28] MEDS: FUROSEMIDE 40 MG/4 ML VIAL IV SCH (23:11)
[2021-09-29] MEDS: MIRTAZAPINE 15 MG TAB PO SCH ×3 (00:36→21:33)
[2021-09-29] MEDS ORDERED: INFLUENZA VACCINE (for 6+ mo) 0.5 ML DOSE IMVAC ONE (08:00)
[2021-09-29] MEDS: FUROSEMIDE 40 MG/4 ML VIAL IV SCH ×2 (08:28→16:32)
[2021-09-29] MEDS: FOLIC ACID 1 MG TABLET PO SCH (08:29)
[2021-09-29] MEDS: ENOXAPARIN 40 MG/0.4 ML SQ SCH (08:29)
[2021-09-29] MEDS ORDERED: FUROSEMIDE 20 MG TABLET PO SCH (09:00)
--- NOTE | 2021-09-29 11:58 | P.PN ---
Subjective Date of Service: 09/29/21 Chief Complaint: Hypoxia No new complaint. She is awake and alert. She states her right upper extremity swelling is improving. Also states she is eating better. Physical Examination - Vital Signs Temperature: 97.2 F Blood Pressure: 100/51 Pulse: 88 Respirations: 18 Pulse Ox (%): 100 - Physical Exam General: Alert, In no apparent distress, Obese HEENT: Mucous membr. moist/pink Neck: JVD not distended Respiratory: Clear to auscultation bilaterally, Diminished (Diminished breath sounds bilaterally) Cardiovascular: Regular rate/rhythm, Normal S1 S2, Edema (Edema right upper ex tremity and bilateral lower extremities) Gastrointestinal: Normal bowel sounds, Soft and benign, Non-distended Musculoskeletal: No tenderness, Swelling (Bilateral lower extremity swelling) Integumentary: Other (Bilateral venous stasis dermatitis of lower extremities) Neurological: Other (Paraplegia) Lymphatics: Other (Bilateral lower extremity lymphedema wrap) - Studies Laboratory Data (last 24 hrs) 09/28/21 12:22: PT 12.8 H, INR 1.16 09/28/21 12:22: WBC 10.70, Hgb 12.8, Hct 44.1, Plt Count 283 09/28/21 12:22: Sodium 131 L, Potassium 4.8, BUN 52 H, Creatinine 1.01, Glucose 102, Magnesium 2.1, Total Bilirubin 0.7, AST 16, ALT 14, Alkaline Phosphatase 126 H Assessment And Plan - Current Problems (Diagnosis) (1) Anasarca Current Visit: Yes Status: Acute (2) Acute diastolic heart failure Current Visit: Yes Status: Acute (3) Acute respiratory failure with hypoxia Current Visit: Yes Status: Acute (4) Neurogenic dysfunction of the urinary bladder Onset Date: 07/06/18 Current Visit: No Status: Chronic (5) Spina bifida Current Visit: No Status: Chronic Qualifiers: Spinal region: unspecified Presence of hydrocephalus: unspecified hydrocephalus presence Qualified Code(s): Q05.9 - Spina bifida, unspecified - Plan Continue IV Lasix. Monitor intake and output Daily weight Watch blood pressure IV Lasix Monitor renal function Echocardiogram is pending. Nutritional consult. Supplemental oxygen as needed. continue other home medications.
[2021-09-29 14:18] LABS: Hematocrit 39.1 % (36.0-45.0); Lymphocytes % 7.7 % (15.3-44.8); MPV 8.2 fL (7.6-11.3); RBC Red Blood Cell Count 5.27 M/uL (3.86-4.86)
[2021-09-29 14:44] LABS: Potassium 4.5 mmol/L (3.5-5.1)
[2021-09-29 14:45] LABS: Albumin 2.7 g/dL (3.4-5.0); Bilirubin Total 0.6 mg/dL (0.2-1.0); Magnesium 1.8 mg/dL (1.8-2.4); Protein, Total 6.1 g/dL (6.4-8.2)
[2021-09-29 15:05] LABS: Anisocytosis 2+; Blood Morphology Comment NOTED (NOT SEEN); Hypochromasia 1+; Platelet Estimate ADEQ; Polychromasia SLIGHT; White Blood Cell Scan OK (OK)
--- NOTE | 2021-09-29 21:56 | RAD REPORT ---
EXAM DESCRIPTION: RAD - Chest Single View - 09/29/2021 9:44 pm CLINICAL HISTORY: PICC line Placement COMPARISON: Chest Single View dated 09/28/2021; Chest Single View dated 08/08/2021; Chest Single View dated 08/03/2021; Chest Single View dated 07/30/2021 FINDINGS: Portable chest was obtained following placement of a left upper extremity PICC line. The c atheter tip projects over the right subclavian vein. This would indicate the suboptimal tip placement and repositioning is suggested.
[2021-09-29] MEDS ORDERED: NA CHLORIDE 0.9% 1,000 ML IV ONE (23:22)
[2021-09-30] MEDS ORDERED: FUROSEMIDE 20 MG/ 2ML VIAL IV ONE (03:23)
[2021-09-30] MEDS ORDERED: ALBUMIN HUM 5% 250 ML IV SCH (05:00)
[2021-09-30 06:20] LABS: Absolute Lymphocytes (CBC) 1.1 K/uL (0.7-4.9); Hematocrit 38.2 % (36.0-45.0); MPV 7.5 fL (7.6-11.3); RBC Red Blood Cell Count 4.96 M/uL (3.86-4.86)
[2021-09-30 06:41] LABS: Potassium 4.4 mmol/L (3.5-5.1)
[2021-09-30] MEDS ORDERED: HYDROCORTISONE SUC 100 MG INJ ONE (07:14)
[2021-09-30] MEDS ORDERED: HYDROCORTISONE SUC 100 MG INJ IV ONE (07:22)
[2021-09-30] MEDS ORDERED: Levofloxacin500mg IV 500 MG/100 ML BAG IV SCH (08:00)
[2021-09-30] MEDS: FUROSEMIDE 40 MG/4 ML VIAL IV SCH (09:00)
[2021-09-30] MEDS: FOLIC ACID 1 MG TABLET PO SCH (09:00)
[2021-09-30] MEDS: MIRTAZAPINE 15 MG TAB PO SCH ×2 (09:00→21:00)
[2021-09-30] MEDS ORDERED: NA CHLORIDE 0.9% 250 ML IV ONE (09:46)
[2021-09-30] MEDS: ALBUMIN HUMAN 25% 200 ML IV ONE ×2 (10:05)
[2021-09-30] MEDS: ENOXAPARIN 40 MG/0.4 ML SQ SCH (10:08)
--- NOTE | 2021-09-30 10:13 | EKG ---
Test Date: 2021-09-28 Test Time: 12:29:45 [employer] Portal Developer: MYRA MEASUREMENT RESULTS: Intervals: Rate: 94 NM: 120 QRSD: 70 QT: 332 QTc: 415 Duarte: P: 48 NM: 120 QRS: 120 T: 44 INTERPRETIVE STATEMENTS: Normal sinus rhythm Left posterior fascicular block Nonspecific T wave abnormality Abnormal ECG Compared to ECG 03/15/2017 14:18:10 Left posterior fascicular block now present T-wave abnormality now present Electronically Signed On 09-30-21 10:11:54 CDT by Wu Argueta
[2021-09-30] MEDS ORDERED: RSI MEDICATION KIT IV ONE (10:51)
[2021-09-30] MEDS: MIDAZOLAM HCL 2 MG/2 ML INJ ONE ×2 (11:20)
--- NOTE | 2021-09-30 11:33 | RAD REPORT ---
EXAM DESCRIPTION: RAD - Chest Single View - 09/30/2021 11:22 am CLINICAL HISTORY: intubation COMPARISON: Chest Single View dated 09/30/2021; Chest Single View dated 09/29/2021; Chest Single View dated 09/28/2021; Chest Single View dated 08/08/2021 FINDINGS: Several chest radiographs performed. The first radiograph showed complete collapse of the left lung likely due to right mainstem bronchus intubation. The endotracheal tube was subsequently re tracted. The tube is near the ishmael, possibly still angulated toward the right mainstem bronchus. IMPRESSION: Recommend retraction of the endotracheal tube by 2 cm. The tip is at the ishmael and stil l angulated towards the right mainstem bronchus.
[2021-09-30] MEDS ORDERED: ALBUTEROL 2.5 MG/3 ML NEB SOL ONE (11:44)
[2021-09-30] MEDS ORDERED: IPRATROPIUM BROM 0.5MG/2.5ML ONE (11:44)
[2021-09-30] MEDS: NOREPINEPHRINE 4 MG in D5W 250 ML IV SCH ×2 (12:10→23:53)
[2021-09-30] MEDS ORDERED: MIDAZOLAM HCL 2 MG/2 ML INJ IV PRN (12:10)
[2021-09-30] MEDS ORDERED: FENTANYL CITR 100 MCG/2 ML IV PRN (12:21)
[2021-09-30] MEDS ORDERED: HALOPERIDOL LACT 5 MG/ML INJ IV PRN (12:21)
[2021-09-30] MEDS ORDERED: LORazepam 2 MG/ML VIAL IV PRN (12:21)
[2021-09-30 12:32] LABS: Arterial Blood Carboxyhemoglob 1.7 % (0-1.5); Blood Gas Oxyhemoglobin 94.4 % (94-97); Blood O2 Saturation 97.5 % (92-98.5)
--- NOTE | 2021-09-30 12:36 | P.PN ---
Subjective Date of Service: 09/30/21 Chief Complaint: Hypoxia Per report patient became unresponsive early this morning. Arterial blood gas revealed CO2 retention. Patient placed on BiPAP, and mental status became worse. She also developed hypotension and given boluses of normal saline and albumin infusions. Patient did not respond to intervention and was subsequently intubated. Much resistance to bag noted. ET position after initial intubation noted to be in the right bronchus.ET position adjusted multiple times with serial chest x-ray. Patient transferred to the ICU. She was more awake after intubation. Blood pressure initially improved with IV normal saline resuscitation and albumin infusion but patient became hypotensive again. Physical Examination - Vital Signs Temperature: 97 F Blood Pressure: 66/44 Pulse: 96 Respirations: 18 Pulse Ox (%): 98 - Physical Exam General: Obese, Other (Awake) HEENT: Other (Intubated) Neck: Other (Short neck) Respiratory: Diminished (Bilateral), Other (Clear to auscultation) Cardiovascular: Other (Tachycardia), Edema (Generalized edema more pronounced on the right upper extremity, trunk and lower extremities) Gastrointestinal: Normal bowel sounds, No tenderness, Other (Looks distended) Musculoskeletal: Swelling (Bilateral legs) Integumentary: Other (Bilateral venous stasis dermatitis) Neurological: Other (Awake on the vent and obey commands. Paraplegia) Assessment And Plan - Current Problems (Diagnosis) (1) Acute respiratory failure with hypoxia and hypercapnia Current Visit: Yes Status: Acute (2) Anasarca Current Visit: Yes Status: Acute (3) Acute diastolic heart failure Current Visit: Yes Status: Acute (4) Neurogenic dysfunction of the urinary bladder Onset Date: 07/06/18 Current Visit: No Status: Chronic (5) Spina bifida Current Visit: No Status: Chronic Qualifiers: Spinal region: unspecified Presence of hydrocephalus: unspecified hydrocephalus presence Qualified Code(s): Q05.9 - Spina bifida, unspecified - Plan Continue mechanical ventilation. Pulmonary consult Hold Lasix IV albumin infusion Levophed for low blood pressure. Slow IV fluid. Monitor intake and output. Careful sedation on the vent-intermittent Versed IV push versus Precedex drip. Antibiotics. NG tube to suction Serial blood gas. Daily weight Monitor renal function Echocardiogram is pending. N.p.o.
[2021-09-30 12:37] LABS: Arterial Blood Carboxyhemoglob 1.8 % (0-1.5); Blood Gas Oxyhemoglobin 88.9 % (94-97); Blood O2 Saturation 92.1 % (92-98.5)
--- NOTE | 2021-09-30 13:23 | RAD REPORT ---
EXAM DESCRIPTION: RAD - Chest Single View - 09/30/2021 1:15 pm CLINICAL HISTORY: Verify ETT placement COMPARISON: Chest Single View dated 09/30/2021; Chest Single View dated 09/30/2021; Chest Single View dated 09/29/2021; Chest Single View dated 09/28/2021 FINDINGS: Endotracheal tube remains angled towards the right mainstem bronchus. Recommend retraction by 2 cm. Enteric tube overlying the stomach. Left subclavian approach PICC with tip overlying the pr oximal SVC. IMPRESSION: ET tube angled toward the right mainstem bronchus. Recommend retraction by 2 cm.
[2021-09-30] MEDS ORDERED: DEXMEDETOMIDINE HCL 200 MCG in NA CHLORIDE 0.9% 98 ML IV SCH ×2 (14:00→16:00)
[2021-09-30 16:10] LABS: Arterial Blood Carboxyhemoglob 1.9 % (0-1.5); Blood Gas Oxyhemoglobin 89.7 % (94-97); Blood O2 Saturation 92.9 % (92-98.5)
--- NOTE | 2021-09-30 16:13 | RAD REPORT ---
EXAM DESCRIPTION: RAD - Chest Single View - 09/30/2021 3:53 pm CLINICAL HISTORY: ETT retracted 1.5cm COMPARISON: Chest Single View dated 09/30/2021; Chest Single View dated 09/30/2021; Chest Single View dated 09/30/2021; Chest Single View dated 09/29/2021; Head Brain Wo Cont dated 07/31/2021 FINDINGS: Endotracheal tube retracted. The aortic arch is difficult to appreciate. The ishmael is als o difficult to identify. The tube should be above the ishmael. The left lung is nearly completely cons olidated. Widespread airspace disease in the right lung. CLIENT STRATEGIST shunt. Left subclavian approach PICC. NG tube overlying the stomach. IMPRESSION: Slight retraction of the endotracheal tube. The tip of the tube is near the ishmael. The left lung remains collapsed. Consider retracting by another 1 cm. Unless there is mucus plugging, the left lung should have re-expanded. Widespread right-sided airspace disease noted, possibly edema and/or infiltrate.
[2021-09-30] MEDS ORDERED: DEXMEDETOMIDINE HCL 1,000 MCG in NA CHLORIDE 0.9% 490 ML IV SCH (17:00)
--- NOTE | 2021-09-30 17:32 | P.PN ---
Date of Service: 09/30/21 Critical care time spent managing patient's acute respiratory failure and hypovolemic shock was about 48 minutes.
[2021-09-30] MEDS ORDERED: FAMOTIDINE 20 MG/2 ML VIAL IV SCH (21:00)
[2021-10-01 04:52] LABS: Absolute Lymphocytes (CBC) 0.8 K/uL (0.7-4.9); Hematocrit 39.2 % (36.0-45.0); Lymphocytes % 2.9 % (15.3-44.8); MPV 7.6 fL (7.6-11.3); RBC Red Blood Cell Count 5.31 M/uL (3.86-4.86)
[2021-10-01] MEDS: NOREPINEPHRINE 4 MG in D5W 250 ML IV SCH ×3 (05:02→12:02)
[2021-10-01 05:09] LABS: Potassium 4.6 mmol/L (3.5-5.1)
[2021-10-01 05:11] VITALS: BMI 65.1
[2021-10-01 05:15] LABS: Arterial Blood Carboxyhemoglob 1.6 % (0-1.5); Blood Gas Oxyhemoglobin 96.6 % (94-97); Blood O2 Saturation 99.3 % (92-98.5)
[2021-10-01 05:36] LABS: Anisocytosis 2+; Blood Morphology Comment NOTED (NOT SEEN); Hypochromasia 1+; Platelet Estimate ADEQ; Polychromasia 1+
[2021-10-01 06:39] VITALS: TEMP 96.7
[2021-10-01] MEDS: ALBUTEROL 2.5 MG/3 ML NEB SOL NEB SCH ×2 (08:22→14:00)
--- NOTE | 2021-10-01 08:24 | P.CNS ---
Date of Consult: 10/01/21 Reason for Consult: Respiratory failure Chief Complaint: Respiratory failure hypotension History of Present Illness: Patient is 46 years of age spina bifida paraplegic Covid infection Covid encephalopathy admitted with progressive dyspnea he was discharged with oxygen mated with dyspnea respiratory failure had to be emergently intubated transferred here to the ICU on maximum vasopressors high concentrations of oxygen Allergies clindamycin Allergy (Verified 09/28/21 23:19) Hives/Rash Home Medications: Folic Acid 1 mg PO DAILY 09/28/21 Furosemide [Lasix] 20 mg PO DAILY 09/28/21 Mirtazapine [Remeron] 15 mg PO BID 09/28/21 - Past Medical/Surgical History Diabetic: No -: spina bifida -: depression -: shunts -: back surgery (spina bifida) -: bilateral leg surgery - Family History Father Medical History: Heart disease, Hypertension, Diabetes - Social History Alcohol use: No CD- Drugs: No Caffeine use: No Place of Residence: Home Review of Systems is unable to be obtained Physical Examination Temp Pulse Resp BP Pulse Ox 96.7 F L 78 23 H 93/69 97 10/01/21 04:00 10/01/21 06:15 10/01/21 03:45 10/01/21 06:15 10/01/21 06:15 General: Unresponsive Respiratory: Expiratory wheezes Cardiovascular: No edema, Normal S1 S2 (Atrophic extremities) - Problems (1) Acute respiratory failure with hypoxia Current Visit: Yes Status: Acute Plan: Patient is 46 years of age history of spinal bifida recent Covid admitted with respiratory failure tube was adjusted however there is no repeat chest x-ray which have ordered patient has complete atelectasis on the left side maximum vasopressor therapy start on IV steroids continue with levofloxacin blood cultures are negative on 80% FiO2 white count elevated bolus with some more fluids sputum cultures maintenance fluids nebulizers
--- NOTE | 2021-10-01 08:44 | RAD REPORT ---
EXAM DESCRIPTION: RAD - Chest Single View - 10/01/2021 8:37 am CLINICAL HISTORY: Respiratory failure Chest pain. COMPARISON: Chest Single View dated 09/30/2021; Chest Single View dated 09/30/2021; Chest Single View dated 09/30/2021; Chest Single View dated 09/30/2021 FINDINGS: Portable technique limits examination quality. Tip of the endotracheal tube is at the level of the aortic arch. Extensive bilateral pulmonary opacit ies, greater on the right noted with right pleural effusion suspected, unchanged. Heart size is mildl y enlarged. Enteric tube descends into the stomach. Right-sided venous catheter unchanged in position .
[2021-10-01] MEDS ORDERED: PIPER TAZO 3.375 GM in NA CHLORIDE 0.9% 100 ML IV SCH (09:00)
[2021-10-01] MEDS: NA CHLORIDE 0.9% 1,000 ML IV SCH ×2 (09:00→12:10)
[2021-10-01] MEDS ORDERED: METHYLPREDNISOLONE 125 MG INJ IV SCH (09:00)
[2021-10-01] MEDS ORDERED: VANCOMYCIN 2 GM in NA CHLORIDE 0.9% 500 ML IVPB SCH (09:00)
[2021-10-01] MEDS: ALBUMIN HUMAN 25% 100 ML IV SCH ×2 (10:13→11:55)
--- NOTE | 2021-10-01 10:28 | P.PN ---
Subjective Date of Service: 10/01/21 Chief Complaint: Respiratory failure hypotension Patient with pink frothy secretions coming out of the endotracheal tube. Reviewed chest x-ray and showing whiteout of the right lung. Secretions likely secondary to pulmonary edema. Blood pressure fluctuates but overall low on Levophed. Patient is sedated, looks very edematous and hypoxic on the vent. Physical Examination - Vital Signs Temperature: 96.7 F Blood Pressure: 93/69 Pulse: 78 Respirations: 23 Pulse Ox (%): 97 - Physical Exam General: Unresponsive, Obese, Other (Generalized edema) HEENT: Other (ET tube) Neck: Supple, No Thyromegaly Respiratory: Diminished (Bilateral), Other (Upper airway transmitted sounds) Cardiovascular: No murmurs, Edema (Massive generalized edema, tachycardia) Gastrointestinal: Soft and benign, No tenderness, Other (Abdominal wall edema), Distended Musculoskeletal: Swelling (Bilateral lower extremities) Integumentary: Other (Bilateral lower extremity venous stasis dermatitis) Neurological: Other (Unresponsive, withdraws both upper extremities to pain, paraplegia) Assessment And Plan - Current Problems (Diagnosis) (1) Acute respiratory failure with hypoxia and hypercapnia Current Visit: Yes Status: Acute (2) Anasarca Current Visit: Yes Status: Acute (3) Acute diastolic heart failure Current Visit: Yes Status: Acute (4) Neurogenic dysfunction of the urinary bladder Onset Date: 07/06/18 Current Visit: No Status: Chronic (5) Spina bifida Current Visit: No Status: Chronic Qualifiers: Spinal region: unspecified Presence of hydrocephalus: unspecified hydrocephalus presence Qualified Code(s): Q05.9 - Spina bifida, unspecified - Plan Continue mechanical ventilation. Pulmonary-Dr. Kothari input appreciated Not able to give diuresis due to hypotension on vasopressor. Serum creatinine is trending up. Poor urine output. Pulmonary edema present. Nephrology consulted We will give IV albumin infusions to improve blood pressure and oncotic pressure. Continue Levophed. Slow IV fluid. Monitor intake and output. Sedation with intermittent Versed Leukocytosis trended up to 29,000. Change antibiotics to IV vancomycin and Zosyn. Zosyn to cover aspiration p neumonia NG tube to suction General surgery consulted for arterial line and central line Daily weight Monitor renal function Echocardiogram is pending. N.p.o. I called patient mother and discussed updates of her clinical condition. Poor prognosis.
[2021-10-01] MEDS ORDERED: D50W 25 GM/50 ML SYRINGE IV ONE (12:37)
[2021-10-01] MEDS ORDERED: EPINEPHrine 1 MG/10 ML SYR IV ONE (12:37)
[2021-10-01 13:02] VITALS: BP 88/48
--- NOTE | 2021-10-01 13:31 | RAD REPORT ---
EXAM DESCRIPTION: RAD - Chest Single View - 09/30/2021 3:06 am CLINICAL HISTORY: Picc line TECHNIQUE: Frontal view of the chest. COMPARISON: XR Chest dated 09/29/2021 FINDINGS: Limitations: Technically limited secondary to overlying body habitus. Lungs: Low lung volumes. Patchy bilateral perihilar opacities. Pleural space: Unremarkable. No pneumothorax. Heart: The cardiac silhouette is enlarged, stable. Mediastinum: Unremarkable. Bones/joints: Unremarkable. Tubes, lines and devices: Left upper extremity PICC repositioned. The distal visualized portion pro jects over the cavoatrial junction. IMPRESSION: 1. Left upper extremity PICC repositioned. The distal visualized portion projects over the cavoatrial junction. 2. Patchy bilateral perihilar opacities (atelectasis and/or infiltrate). Electronically signed by: Lamont Menendez MD 09/30/2021 4:01 AM CDT Due to temporary technical issues with the PACS/Fluency reporting system, reports are being signed by the in house radiologist without review as a courtesy to ensure prompt reporting. The interpreting r adiologist is fully responsible for the content of the report.
[2021-10-01 13:33] LABS: Arterial Blood Carboxyhemoglob 1.1 % (0-1.5); Blood Gas Oxyhemoglobin 55.9 % (94-97); Blood O2 Saturation 57.5 % (92-98.5)
--- NOTE | 2021-10-01 13:44 | P.PN ---
Date of Service: 10/01/21 Patient hypotensive on maximum dose of Levophed. Phenylephrine drip added. Patient getting albumin infusion. She is still on hypotensive. Also very hypoxic. pH of 7.0, PO2 44. CODE GENIA called on the patient, Chest compressions started, patient coded for about 11 minutes, patient had PEA, no return of pulse. Family later requested to discontinue the code. Critical care time spent managing patient hypotension, respiratory failure and PEA was about 56 minutes
--- NOTE | 2021-10-01 13:50 | P.DS ---
Admission Date: 09/28/21 Discharge Date: 10/01/21 Disposition: Reason for Admission: Respiratory failure hypotension - Problems (1) Acute respiratory failure with hypoxia and hypercapnia Status: Acute (2) Anasarca Status: Acute (3) Acute diastolic heart failure Status: Acute (4) Neurogenic dysfunction of the urinary bladder Onset Date: 07/06/18 Status: Chronic (5) Spina bifida Status: Chronic Qualifiers: Spinal region: unspecified Presence of hydrocephalus: unspecified hydrocephalus presence Qualified Code(s): Q05.9 - Spina bifida, unspecified Brief History of Present Illness: 46-year-old woman with a history of spina bifida, paraplegia, bedbound, recent Covid infection with Covid encephalopathy was brought to the emergency department due to progressive shortness of breath. According to the mother patient was discharged to home which oxygen therapy after his hospitalization for Covid infection. Since then patient has been requiring oxygen on and off for intermittent hypoxia. Mother called EMS because patient was complaining of shortness of breath and turning dusky. EMS found him with oxygen saturation of 80%. Patient complaining of increased edema of the right upper extremity. She has lymphedema of both lower extremities. She usually lay on her right side. Patient was placed on oxygen therapy and given a dose of IV Lasix in the ED. No recent cardiac work-up. Patient is hospitalized for further management. Hospital Course: Patient admitted to the medical floor and started on IV Lasix for diuresis. Her anasarca did not respond much to Lasix. During the course of the hospital stay patient became confused, developed hypoxia and hypercapnic respiratory failure. The respiratory failure did not respond to BiPAP. She later became unresponsive, hypotensive developed agonal breathing and was subsequently intubated. Patient sent to the ICU and treated with vasopressors, IV fluid boluses, albumin infusion and antibiotics. She did not respond to aggressive treatment, her anasarca was refractory to diuresis, patient remained hypotensive, developed more pulmonary edema and became very hypoxic. Arterial blood gas today showed pH of 7.0, PO2 of 44. She later developed PEA and coded. Patient was coded for 11-minutes, family requested to discontinue the code. Patient pronounced on 10/01/2021 at 12:38 pm. Vital Signs/Physical Exam: Temp Pulse Resp BP Pulse Ox 96.7 F L 48 L 29 H 88/48 L 89 L 10/01/21 10:37 10/01/21 12:30 10/01/21 11:30 10/01/21 12:30 10/01/21 12:30 Laboratory Data at Discharge: WBC 29.50 K/uL (4.3-10.9) H* D 10/01/21 04:36 Hgb 11.4 g/dL (12.0-15.0) L 10/01/21 04:36 Hct 39.2 % (36.0-45.0) 10/01/21 04:36 Plt Count 275 K/uL (152-406) 10/01/21 04:36 PT 12.8 SECONDS (9.5-12.5) H 09/28/21 12:22 INR 1.16 09/28/21 12:22 Sodium 131 mmol/L (136-145) L 10/01/21 04:36 Potassium 4.6 mmol/L (3.5-5.1) 10/01/21 04:36 BUN 59 mg/dL (7-18) H 10/01/21 04:36 Creatinine 1.42 mg/dL (0.55-1.3) H 10/01/21 04:36 Glucose 151 mg/dL (74-106) H 10/01/21 04:36 Phosphorus 5.0 mg/dL (2.5-4.9) H 09/29/21 14:06 Magnesium 1.8 mg/dL (1.8-2.4) 09/29/21 14:06 Total Bilirubin 0.6 mg/dL (0.2-1.0) 09/29/21 14:06 AST 16 U/L (15-37) 09/29/21 14:06 ALT 12 U/L (12-78) 09/29/21 14:06 Alkaline Phosphatase 103 U/L (45-117) 09/29/21 14:06 Home Medications: Folic Acid 1 mg PO DAILY 09/28/21 Furosemide [Lasix] 20 mg PO DAILY 09/28/21 Mirtazapine [Remeron] 15 mg PO BID 09/28/21 Followup: Unknown,U [Primary Care Provider] -
[2021-10-01 13:57] VITALS: O2SAT 100
--- NOTE | 2021-10-01 16:06 | CON ---
Date of Consultation: 10/01/2021 Reason For Consultation: Arterial line placement. Brief History Of Present Illness: Patient is a 46-year-old female, who was admitted to the hospital on 09/28 with shortness of breath and diffuse swelling. Information was obtained from the chart as t he patient is currently intubated. Patient ultimately had respiratory insufficiency with respiratory failure and was intubated. She is currently on the ventilator. Past Medical History: Significant for clindamycin. Past Surgical History: Unknown. Medications: Outpatient medications unable to obtain. Allergies: CLINDAMYCIN. SHE RECEIVED 2 DOSES OF COVID VACCINE. Social History: There is negative report of tobacco usage. Review of Systems: 10-point review of systems, unable to obtain. Physical Examination: Vital Signs: At the time of my examination, patient's BMI is 65. Her blood pressure is 93/69, pulse is 78, respiratory rate 23 on the ventilator, temperature 96.7. General: She is intubated, sedated. HEENT: Her sclerae were anicteric. Her ET tube is in place with pink frothy sputum, consistent with pulmonary edema. She requires frequent suctioning. Overall, she has diffuse significant severe monika sarca. Chest: Normal expansion and excursion. Cardiovascular: Regular rate, rhythm currently. Pulmonary: Decreased breath sounds bilaterally. Abdomen: Obese. Extremities: There is some cyanosis globally on her feet and hands with some mild mottling and her e xtremities are cold and clammy. Skin: Diaphoretic. Laboratory Data: Her white blood cell count was 29.5, hemoglobin 11.4, hematocrit 39.2, platelet cou nt was 275. Her last pH was 7.3, pCO2 was 48, pO2 was 169, base excess was -2. Her bicarb was 23.6. Inspired O2 was 100% on this. Her sodium 131, potassium 4.6, chloride 99, carbon dioxide 26, BUN 5 9, creatinine 1.4. Her glucose was 151. She had a chest x-ray performed, which was officially read as tip of the endotracheal tube at the level of the aortic arch, extensive bilateral pulmonary opacit ies greater right noted with right pleural effusion is suspected unchanged. Heart is mildly enlarged . Enteric tube distended stomach. Right-sided venous catheter unchanged in position. Assessment And Plan: 1.This is a 46-year-old woman, who comes in with respiratory collapse, intubated with significant wo rsening of her overall clinical picture and multiorgan dysfunction. 2.I have been asked to attempt to place a femoral arterial line. I cannot access her groin because of her significant body habitus and significant edema. There is approximately 12 inches between the tissue plane and the femoral vasculature and even using ultrasound guidance, it is challenging using multiple nurses to help. As such, I have opted to attempt a radial arterial line. I will attempt a radial arterial line, however, using ultrasound guidance in this area, these appeared to be diminutiv e and fairly constricted using ultrasound interrogation of the bilateral radial arteries. Continue m edical management. I will proceed as indicated. JOLYNN/MISAEL Voice ID: [id number] Report ID: [id number]
== END 2021-10-01 12:38 | disposition expired | DRG 291 ==
LOC: ER 11:40 → ERHOLD 16:40 → 2ND 21:30 → 3RD-ICU 09-30 11:32
PROVIDERS: ADMIT Internal Medicine; ATTEND Internal Medicine
PROC: 0T9B70Z Drainage of Bladder with Drainage Device, Via Natural or Artificial Opening (ICD-10-PCS; 2021-09-29)
PROC: 0BH17EZ Insertion of Endotracheal Airway into Trachea, Via Natural or Artificial Opening (ICD-10-PCS; principal; 2021-09-30)
PROC: 02HV33Z Insertion of Infusion Device into Superior Vena Cava, Percutaneous Approach (ICD-10-PCS; 2021-09-30)
PROC: 5A1935Z Respiratory Ventilation, Less than 24 Consecutive Hours (ICD-10-PCS; 2021-09-30)
PROC: 5A12012 Performance of Cardiac Output, Single, Manual (ICD-10-PCS; 2021-10-01)
DX: I50.31 Acute diastolic (congestive) heart failure (principal); J96.02 Acute respiratory failure with hypercapnia; A41.9 Sepsis, unspecified organism; R65.21 Severe sepsis with septic shock; R57.1 Hypovolemic shock; J69.0 Pneumonitis due to inhalation of food and vomit; J96.01 Acute respiratory failure with hypoxia; G82.20 Paraplegia, unspecified; J98.19 Other pulmonary collapse; N17.9 Acute kidney failure, unspecified; Q05.9 Spina bifida, unspecified; Z74.01 Bed confinement status; I89.0 Lymphedema, not elsewhere classified; R60.1 Generalized edema; F45.8 Other somatoform disorders; I95.9 Hypotension, unspecified; L89.151 Pressure ulcer of sacral region, stage 1; Z78.1 Physical restraint status; T81.89XA Other complications of procedures, not elsewhere classified, initial encounter
CPT/HCPCS: 36415; 36569; 71045; 80048; 80053; 80076; 82805; 82947; 83605; 83735; 83880; 84100; 84484; 85025; 85610; 87040; 90471; 93005; 94002; 94003; 94760; 96374; 97161; 99285; J0171; J1650; J1720; J1940; J2250; J2370; J2405; J3370; J3490; J7030; J7040; J7050; J7060; P9045; P9047; Q2035; U0003